=== PATIENT | female | born 1935 | race Caucasian/White ===

== ENCOUNTER 2017-04-13 22:10 | Emergency (ER) | payer MEDICARE, BC ==
--- NOTE | 2017-04-13 22:51 | EDM.PDOC ---
ED HPI GENERAL MEDICAL PROBLEM - General Chief Complaint: General Stated Complaint: FEVER Time Seen by Provider: 04/13/17 22:16 Source of Information: Reports: Patient History Limitations: Reports: No Limitations - History of Present Illness INITIAL COMMENTS - FREE TEXT/NARRATIVE: This is an 81-year-old female. She was sent from the [facility] to the ER because she has been running a low-grade fever of about 100. She also states she's had this dry cough for about a week but she is not producing anything. She denies having a fever or chills she denies any nausea vomiting she denies any ear pain or sore throat. She states she also doesn't know why she is here. The note we got from [facility] states they want to make sure she doesn't have the flu. The patient doesn't know if anybody at the assisted has the flu and I explained to her that's why she is here for us to check this out. Otherwise she is eating well drinking fluids well and has no complaints. The patient denies any body aches. - Related Data Allergies Allergy/AdvReac Type Severity Reaction Status Date / Time No Known Allergies Allergy Verified 04/13/17 22:39 Home Meds: Home Meds Acetaminophen 650 mg PO TID PRN 04/13/17 [History] Allopurinol [Zyloprim] 150 mg PO DAILY 04/13/17 [History] Aspirin [Ecotrin] 81 mg PO DAILY 04/13/17 [History] Cranberry 400 mg PO TID 04/13/17 [History] Fenofibrate Nanocrystallized [Tricor] 48 mg PO DAILY 04/13/17 [History] Furosemide [Lasix] 40 mg PO DAILY 04/13/17 [History] Insulin Glargine,Hum.Rec.Anlog [Lantus Solostar] 18 unit SQ BEDTIME 04/13/17 [ History] Insulin Lispro [HumaLOG] 1 dose SQ TID PRN 04/13/17 [History] Insulin Lispro [HumaLOG] 10 unit SQ TID 04/13/17 [History] Losartan [Cozaar] 50 mg PO DAILY 04/13/17 [History] Metoprolol Succinate [Toprol XL 100mg] 100 mg PO DAILY 04/13/17 [History] amLODIPine [Norvasc] 5 mg PO DAILY 04/13/17 [History] Past Medical History HEENT History: Reports: Other (See Below) Other HEENT History: impacted cerumen Cardiovascular History: Reports: High Cholesterol, Hypertension Genitourinary History: Reports: Other (See Below) Other Genitourinary History: chronic kidney diseaase Psychiatric History: Reports: Dementia Endocrine/Metabolic History: Reports: Diabetes, Type II Social & Family History - Tobacco Use Smoking Status *Q: Never Smoker - Caffeine Use Caffeine Use: Reports: Coffee - Recreational Drug Use Recreational Drug Use: No ED ROS GENERAL - Review of Systems Review Of Systems: See Below Constitutional: Denies: Fever, Chills HEENT: Reports: Eye Discharge Respiratory: Reports: Cough, Other (Nonproductive cough). Denies: Shortness of Breath, Wheezing, Sputum Cardiovascular: Reports: No Symptoms Endocrine: Reports: No Symptoms GI/Abdominal: Denies: Abdominal Pain, Diarrhea, Nausea, Vomiting : Reports: No Symptoms Musculoskeletal: Reports: Other (No body aches) Skin: Reports: No Symptoms Neurological: Reports: No Symptoms Psychiatric: Reports: No Symptoms Hematologic/Lymphatic: Reports: No Symptoms ED EXAM, GENERAL - Physical Exam Exam: See Below Exam Limited By: No Limitations General Appearance: Alert, WD/WN, No Apparent Distress Eye Exam: Bilateral Eye: Normal Inspection (Bilateral eye discharge noted) Ears: Normal External Exam, Normal Canal, Normal TMs Nose: Normal Inspection, Clear Rhinorrhea. No: Nasal Drainage Throat/Mouth: Normal Inspection, Normal Lips, Normal Oropharynx, Normal Voice, No Airway Compromise Head: Normocephalic Neck: Supple Respiratory/Chest: No Respiratory Distress, Lungs Clear, Normal Breath Sounds Cardiovascular: Regular Rate, Rhythm, No Murmur GI/Abdominal: Soft, Non-Tender Back Exam: Full Range of Motion Extremities: Normal Inspection, Normal Range of Motion Neurological: Alert, Oriented Psychiatric: Normal Affect, Normal Mood Skin Exam: Warm, Dry Course - Vital Signs Last Recorded V/S: Last Vital Signs Temp 98.2 F 04/13/17 22:35 Pulse 77 04/13/17 22:35 Resp 18 04/13/17 22:35 BP 169/49 H 04/13/17 22:35 Pulse Ox 95 04/13/17 22:35 - Re-Assessments/Exams Free Text/Narrative Re-Assessment/Exam: 04/14/17 00:21 I spoke to the patient regarding the positive influenza A and influenza B test. I encouraged her to drink lots of fluids and take Tylenol or ibuprofen as needed for the fever if she feels bad. I also encouraged her to continue to wear her mask so she doesn't spread the influenza to her friends at [place]. Departure - Departure Time of Disposition: 00:22 Disposition: Home, Self-Care 01 Condition: Good Clinical Impression: Influenza A, Influenza B - Discharge Information Referrals: Estiven Burnett MD [Primary Care Provider] - Forms: ED Department Discharge Additional Instructions: Please wear the mask when your back at home to prevent spreading the influenza A and B, drink lots of fluids and water to stay well-hydrated, take Tylenol or ibuprofen as needed for the fever if it gets above 101, since she will been sick for about a week I do not believe that the Tamiflu would be helpful at this time, follow-up with your family doctor next week for recheck or return to the ER if your symptoms worsen
== END 2017-04-14 00:30 | disposition home or self-care (01) ==
LOC: JD.ED 22:10
DX: J10.1 Influenza due to other identified influenza virus with other respiratory manifestations (principal); I12.9 Hypertensive chronic kidney disease with stage 1 through stage 4 chronic kidney disease, or unspecified chronic kidney disease; E11.22 Type 2 diabetes mellitus with diabetic chronic kidney disease; N18.9 Chronic kidney disease, unspecified; E78.00 Pure hypercholesterolemia, unspecified; F03.90 Unspecified dementia, unspecified severity, without behavioral disturbance, psychotic disturbance, mood disturbance, and anxiety; Z79.4 Long term (current) use of insulin; Z79.899 Other long term (current) drug therapy; Z79.82 Long term (current) use of aspirin
CPT/HCPCS: 87804; 99282; 99285

== ENCOUNTER 2018-06-24 11:25 | Emergency (ER) | payer MEDICARE, BC ==
--- NOTE | 2018-06-24 13:08 | EDM.PDOC ---
ED HPI GENERAL MEDICAL PROBLEM - General Chief Complaint: Lower Extremity Injury/Pain Stated Complaint: LEG PAIN Time Seen by Provider: 06/24/18 11:34 Source of Information: Reports: Patient, RN Notes Reviewed - History of Present Illness INITIAL COMMENTS - FREE TEXT/NARRATIVE: 82-year-old lady comes in with left lower leg swelling. He did have some tingling of her left upper leg this past morning but that is now gone. No pain. She does have history of "blood clots" "and is on Coumadin. No known injury to the leg. No chest pain or difficulty breathing. Has not been ill in any other way. Left Upper Arm Pain Score (Numeric/FACES): 7 - Related Data Allergies Allergy/AdvReac Type Severity Reaction Status Date / Time No Known Allergies Allergy Verified 06/24/18 11:39 Home Meds: Home Meds Acetaminophen 650 mg PO TID PRN 04/13/17 [History] Allopurinol [Zyloprim] 100 mg PO DAILY 04/13/17 [History] Aspirin [Ecotrin] 81 mg PO DAILY 04/13/17 [History] Cranberry 400 mg PO BID 04/13/17 [History] Furosemide [Lasix] 40 mg PO DAILY 04/13/17 [History] Insulin Glargine,Hum.Rec.Anlog [Lantus Solostar] 18 unit SQ BEDTIME 04/13/17 [ History] Insulin Lispro [HumaLOG] 1 dose SQ TID PRN 04/13/17 [History] Losartan [Cozaar] 50 mg PO DAILY 04/13/17 [History] Metoprolol Succinate [Toprol XL 100mg] 100 mg PO DAILY 04/13/17 [History] amLODIPine [Norvasc] 5 mg PO DAILY 04/13/17 [History] Tamoxifen [Nolvadex] 20 mg PO DAILY 06/24/18 [History] Warfarin [Coumadin] 1.25 mg PO MO 06/24/18 [History] Warfarin [Coumadin] 2.5 mg PO SUTUWETHFRSA 06/24/18 [History] Past Medical History HEENT History: Reports: Other (See Below) Other HEENT History: impacted cerumen Cardiovascular History: Reports: High Cholesterol, Hypertension Genitourinary History: Reports: Other (See Below) Other Genitourinary History: chronic kidney diseaase Psychiatric History: Reports: Dementia Endocrine/Metabolic History: Reports: Diabetes, Type II Social & Family History - Tobacco Use Smoking Status *Q: Never Smoker - Caffeine Use Caffeine Use: Reports: Coffee - Recreational Drug Use Recreational Drug Use: No Review of Systems - Review of Systems Review Of Systems: See Below Constitutional: Denies: Chills, Fever Mouth/Throat: Reports: No Symptoms Respiratory: Denies: Shortness of Breath, Pleuritic Chest Pain, Cough Cardiovascular: Denies: Chest Pain GI/Abdominal: Denies: Abdominal Pain, Nausea, Vomiting Musculoskeletal: Reports: Other (There is been some swelling of the left lower leg, somewhat chronic but may be worse than usual at this time) Skin: Reports: No Symptoms. Denies: Rash, Erythema, Change in Color Neurological: Denies: Dizziness, Difficulty Walking ED EXAM, GENERAL - Physical Exam Exam: See Below General Appearance: Alert, No Apparent Distress Throat/Mouth: Normal Inspection Head: Atraumatic Neck: Supple Respiratory/Chest: No Respiratory Distress, Lungs Clear, Normal Breath Sounds Cardiovascular: Regular Rate, Rhythm Extremities: Other (There is mild swelling of the left lower leg compared to the right, calf and posterior knee as well as upper leg totally nontender). No : Increased Warmth, Redness Neurological: Alert, Oriented, No Motor/Sensory Deficits Skin Exam: Warm, Dry, Normal Color Course - Vital Signs Last Recorded V/S: Last Vital Signs Temp 98.1 F 06/24/18 11:36 Pulse 60 06/24/18 11:36 Resp 16 06/24/18 11:36 BP 174/53 H 06/24/18 11:36 Pulse Ox 100 06/24/18 11:36 - Orders/Labs/Meds Labs: Laboratory Tests 06/24/18 06/24/18 06/24/18 Range/Units 12:15 12:15 12:15 WBC 7.60 (3.98-10.04) K/mm3 RBC 3.38 L (3.98-5.22) M/mm3 Hgb 10.0 L (11.2-15.7) gm/L Hct 31.4 L (34.1-44.9) % MCV 92.9 (79.4-94.8) fl MCH 29.6 (25.6-32.2) pg MCHC 31.8 L (32.2-35.5) g/dl RDW Std Deviation 51.4 H (36.4-46.3) fL Plt Count 214 (182-369) K/mm3 MPV 9.8 (9.4-12.3) fl Neut % (Auto) 73.0 H (34.0-71.1) % Lymph % (Auto) 15.3 L (19.3-51.7) % [place] % (Auto) 7.2 (4.7-12.5) % Eos % (Auto) 3.6 (0.7-5.8) Baso % (Auto) 0.8 (0.1-1.2) % Neut # (Auto) 5.55 (1.56-6.13) K/mm3 Lymph # (Auto) 1.16 L (1.18-3.74) K/mm3 [place] # (Auto) 0.55 H (0.24-0.36) K/mm3 Eos # (Auto) 0.27 (0.04-0.36) K/mm3 Baso # (Auto) 0.06 (0.01-0.08) K/mm3 PT 21.9 H (9.5-12.1) SECONDS INR 2.04 Sodium 141 (136-145) mEq/L Potassium 5.6 H (3.5-5.1) mEq/L Chloride 108 H (98-107) mEq/L Carbon Dioxide 19 L (21-32) mEq/L Anion Gap 19.6 H (5-15) BUN 80 H (7-18) mg/dL Creatinine 3.8 H (0.55-1.02) mg/dL Est Cr Clr Drug Dosing 8.32 mL/min Estimated GFR (MDRD) 11 (>60) mL/min BUN/Creatinine Ratio 21.1 H (14-18) Glucose 137 H (83-115) mg/dL Calcium 8.3 L (8.5-10.1) mg/dL Total Bilirubin 0.3 (0.2-1.0) mg/dL AST 18 (15-37) U/L ALT 16 (14-59) U/L Alkaline Phosphatase 59 (46-116) U/L Total Protein 7.4 (6.4-8.2) g/dl Albumin 2.8 L (3.4-5.0) g/dl Globulin 4.6 gm/dL Albumin/Globulin Ratio 0.6 L (1-2) - Re-Assessments/Exams Free Text/Narrative Re-Assessment/Exam: 06/26/18 19:35 Pro time INR was therapeutic at 2.04. Vitals completely normal, not short of breath. Therefore it seems reasonable to increase her Coumadin dosage mildly, patient and her daughter are comfortable with that plan discharge instructions as documented Departure - Departure Time of Disposition: 13:03 Disposition: DC/Tfer to [facility] 61 Condition: Fair Clinical Impression: Left leg swelling - Discharge Information Referrals: Estiven Burnett MD [Primary Care Provider] - Forms: ED Department Discharge Additional Instructions: Keep legs elevated when not walking, increase coumadin or warfarin to 5 mg PO Sunday and Sunday, continue at 2.5 mg all other days. Pt INR was low therapeutic today at 2.05. Continue other medications as prescribed. Measure left calf daily and keep a record for the next 10 days. Follow-up clinic or return to ED as needed if symptoms worsening in any way, especially for any chest pain or difficulty breathing, or if leg becomes warm, erythematous or more painful.
== END 2018-06-24 13:24 ==
LOC: JD.ED 11:25
DX: R22.42 Localized swelling, mass and lump, left lower limb (principal); Z79.899 Other long term (current) drug therapy; Z79.82 Long term (current) use of aspirin
CPT/HCPCS: 36415; 80053; 85025; 85610; 99282; 99283

== ENCOUNTER 2018-12-20 08:44 | Inpatient (IN) | payer MEDICARE, BC ==
[2018-12-20] MEDS ORDERED: Ondansetron 4 MG/2 ML SDV IVPUSH ONE (10:16)
[2018-12-20] MEDS ORDERED: Sodium Chloride 0.9% 1,000 ML IV SCH ×3 (10:30→18:45)
--- NOTE | 2018-12-20 11:03 | EDM.PDOC ---
ED HPI GENERAL MEDICAL PROBLEM - General Chief Complaint: Gastrointestinal Problem Stated Complaint: [facility] Time Seen by Provider: 12/20/18 09:54 Source of Information: Reports: Patient, Family, RN Notes Reviewed History Limitations: Reports: No Limitations - History of Present Illness INITIAL COMMENTS - FREE TEXT/NARRATIVE: Patient is an 83-year-old female who presents to the ED via [place] [facility] for the evaluation of nausea and vomiting. The patient's son present in the room states that his mother has been not feeling well since Sunday night after supper. He states that he visited her last night at the custodial, after supper time around 7 PM and he states that she vomited 4 or 5 times since then. The patient complaints of no appetite, with multiple episodes of vomiting and nausea present. The patient's blood sugar this morning at 7:45 AM was 53, they try to give her some apple juice but she ended up throwing this up. They then tried 1 mg glucagon, this is when the [place] [facility] was summoned. At time of ambulance arrival the patient's blood sugar reading was 86. The patient has been alert and orientated, she denies any sort of abdominal pain. The patient notes a history of diabetes and states she takes 8 units of Lantus at bedtime for insulin and this is all she takes. She further denies any chest pain, shortness of breath, dysuria, or any other like sick contacts. - Related Data Allergies Allergy/AdvReac Type Severity Reaction Status Date / Time No Known Allergies Allergy Verified 12/20/18 08:58 Home Meds: Home Meds Acetaminophen 650 mg PO TID PRN 04/13/17 [History] Allopurinol [Zyloprim] 100 mg PO DAILY 04/13/17 [History] Aspirin [Ecotrin EC] 81 mg PO DAILY 04/13/17 [History] Cranberry 400 mg PO BID 04/13/17 [History] Furosemide [Lasix] 40 mg PO DAILY 04/13/17 [History] Insulin Glargine,Hum.Rec.Anlog [Lantus Solostar] 18 unit SQ BEDTIME 04/13/17 [ History] Insulin Lispro [HumaLOG] 1 dose SQ TID PRN 04/13/17 [History] Losartan [Cozaar] 50 mg PO DAILY 04/13/17 [History] Metoprolol Succinate [Toprol XL 100mg] 100 mg PO DAILY 04/13/17 [History] amLODIPine [Norvasc] 5 mg PO DAILY 04/13/17 [History] Tamoxifen [Nolvadex] 20 mg PO DAILY 06/24/18 [History] Warfarin [Coumadin] 1.25 mg PO MO 06/24/18 [History] Warfarin [Coumadin] 2.5 mg PO SUTUWETHFRSA 06/24/18 [History] Past Medical History HEENT History: Reports: Other (See Below) Other HEENT History: impacted cerumen Cardiovascular History: Reports: High Cholesterol, Hypertension, Other (See Below) Other Cardiovascular History: DVT Genitourinary History: Reports: Renal Disease, Other (See Below) Other Genitourinary History: chronic kidney diseaase [employer] History: Reports: Psychiatric History: Reports: Dementia Endocrine/Metabolic History: Reports: Diabetes, Type II Oncologic (Cancer) History: Reports: Breast - Infectious Disease History Infectious Disease History: Reports: Measles, Mumps - Past Surgical History Female Surgical History: Reports: Other (See Below) Other Female Surgeries/Procedures: lumpectomy--L) breast. Social & Family History - Tobacco Use Smoking Status *Q: Never Smoker Second Hand Smoke Exposure: No - Caffeine Use Caffeine Use: Reports: Coffee - Recreational Drug Use Recreational Drug Use: No ED ROS GENERAL - Review of Systems Review Of Systems: See Below Constitutional: Denies: Fever, Chills HEENT: Reports: No Symptoms Respiratory: Denies: Shortness of Breath Cardiovascular: Denies: Chest Pain GI/Abdominal: Reports: Nausea, Vomiting. Denies: Abdominal Pain, Constipation, Diarrhea : Denies: Dysuria Musculoskeletal: Reports: No Symptoms Skin: Reports: No Symptoms Neurological: Reports: No Symptoms Psychiatric: Reports: No Symptoms Hematologic/Lymphatic: Reports: No Symptoms ED EXAM, GI/ABD - Physical Exam Exam: See Below Exam Limited By: No Limitations General Appearance: Alert, WD/WN, No Apparent Distress Eyes: Bilateral: Normal Appearance Throat/Mouth: Normal Inspection, Normal Lips, Normal Teeth, Normal Gums, Normal Oropharynx, Normal Voice, No Airway Compromise Respiratory/Chest: No Respiratory Distress, Lungs Clear, Normal Breath Sounds, No Accessory Muscle Use, Chest Non-Tender Cardiovascular: Normal Peripheral Pulses, Regular Rate, Rhythm, No Murmur GI/Abdominal Exam: Normal Bowel Sounds, Soft, Non-Tender, No Distention, No Mass Back Exam: Normal Inspection Extremities: Normal Inspection, Normal Capillary Refill Neurological: Alert, Oriented, Normal Cognition, No Motor/Sensory Deficits Psychiatric: Normal Affect, Normal Mood Skin Exam: Warm, Dry, Intact, Normal Color, No Rash Course - Vital Signs Last Recorded V/S: Last Vital Signs Temp 97.4 F 12/20/18 08:52 Pulse 79 12/20/18 08:52 Resp 18 12/20/18 08:52 BP 178/50 H 12/20/18 08:52 Pulse Ox 97 12/20/18 08:52 - Orders/Labs/Meds Orders: Active Orders 24 hr Category Date Time Status Sodium Chloride 0.9% [Normal Saline] 1,000 ml Med 12/20/18 10:30 Active IV ASDIRECTED Sodium Chloride 0.9% [Normal Saline] 1,000 ml Med 12/20/18 12:44 Active IV ONETIME cefTRIAXone [Rocephin] 1 gm Med 12/20/18 13:30 Active Sodium Chloride 0.9% [Normal Saline] 100 ml IV Q24H Medication Orders Sodium Chloride (Normal Saline) 1,000 mls @ 999 mls/hr IV ASDIRECTED KAITLYN Last Admin: 12/20/18 10:29 Dose: 999 mls/hr Sodium Chloride (Normal Saline) 1,000 mls @ 999 mls/hr IV ONETIME ONE Stop: 12/20/18 13:44 Last Admin: 12/20/18 13:33 Dose: 999 mls/hr Ceftriaxone Sodium 1 gm/ (Sodium Chloride) 100 mls @ 200 mls/hr IV Q24H [facility] Last Admin: 12/20/18 13:33 Dose: 200 mls/hr Labs: Laboratory Tests 12/20/18 12/20/18 12/20/18 Range/Units 08:49 09:59 10:00 WBC 9.62 (3.98-10.04) K/mm3 RBC 3.73 L (3.98-5.22) M/mm3 Hgb 11.4 (11.2-15.7) gm/dl Hct 35.8 (34.1-44.9) % MCV 96.0 H D (79.4-94.8) fl MCH 30.6 (25.6-32.2) pg MCHC 31.8 L (32.2-35.5) g/dl RDW Std Deviation 48.9 H (36.4-46.3) fL Plt Count 167 L (182-369) K/mm3 MPV 10.1 (9.4-12.3) fl Neutrophils % (Manual) 83 H (40-60) % Band Neutrophils % 0 (0-10) % Lymphocytes % (Manual) 10 L (20-40) % Atypical Lymphs % 0 % Monocytes % (Manual) 7 (2-10) % Eosinophils % (Manual) 0 L (0.7-5.8) % Basophils % (Manual) 0 L (0.1-1.2) Platelet Estimate Adequate Anisocytosis 1+ slight RBC Morph Comment Abnormal Sodium (136-145) mEq/L Potassium (3.5-5.1) mEq/L Chloride (98-107) mEq/L Carbon Dioxide (21-32) mEq/L Anion Gap (5-15) BUN (7-18) mg/dL Creatinine (0.55-1.02) mg/dL Est Cr Clr Drug Dosing mL/min Estimated GFR (MDRD) (>60) mL/min BUN/Creatinine Ratio (14-18) Glucose (83-115) mg/dL POC Glucose 87 103 (83-110) mg/dL Calcium (8.5-10.1) mg/dL Total Bilirubin (0.2-1.0) mg/dL AST (15-37) U/L ALT (14-59) U/L Alkaline Phosphatase (46-116) U/L Total Protein (6.4-8.2) g/dl Albumin (3.4-5.0) g/dl Globulin gm/dL Albumin/Globulin Ratio (1-2) Urine Color (Yellow) Urine Appearance (Clear) Urine pH (5.0-8.0) Ur Specific [place] (1.005-1.030) Urine Protein (Negative) Urine Glucose (UA) (Negative) Urine Ketones (Negative) Urine Occult Blood (Negative) Urine Nitrite (Negative) Urine Bilirubin (Negative) Urine Urobilinogen (0.2-1.0) Ur Leukocyte Esterase (Negative) Urine RBC (0-5) /hpf Urine WBC (0-5) /hpf Ur Epithelial Cells (0-5) /hpf Urine Bacteria (FEW) /hpf Urine Mucus (FEW) /hpf 12/20/18 12/20/18 Range/Units 10:00 12:30 WBC (3.98-10.04) K/mm3 RBC (3.98-5.22) M/mm3 Hgb (11.2-15.7) gm/dl Hct (34.1-44.9) % MCV (79.4-94.8) fl MCH (25.6-32.2) pg MCHC (32.2-35.5) g/dl RDW Std Deviation (36.4-46.3) fL Plt Count (182-369) K/mm3 MPV (9.4-12.3) fl Neutrophils % (Manual) (40-60) % Band Neutrophils % (0-10) % Lymphocytes % (Manual) (20-40) % Atypical Lymphs % % Monocytes % (Manual) (2-10) % Eosinophils % (Manual) (0.7-5.8) % Basophils % (Manual) (0.1-1.2) Platelet Estimate Anisocytosis RBC Morph Comment Sodium 144 (136-145) mEq/L Potassium 4.8 (3.5-5.1) mEq/L Chloride 111 H (98-107) mEq/L Carbon Dioxide 19 L (21-32) mEq/L Anion Gap 18.8 H (5-15) BUN 71 H (7-18) mg/dL Creatinine 3.8 H (0.55-1.02) mg/dL Est Cr Clr Drug Dosing 8.17 mL/min Estimated GFR (MDRD) 11 (>60) mL/min BUN/Creatinine Ratio 18.7 H (14-18) Glucose 114 (83-115) mg/dL POC Glucose (83-110) mg/dL Calcium 8.6 (8.5-10.1) mg/dL Total Bilirubin 0.3 (0.2-1.0) mg/dL AST 24 (15-37) U/L ALT 17 (14-59) U/L Alkaline Phosphatase 47 (46-116) U/L Total Protein 7.4 (6.4-8.2) g/dl Albumin 3.0 L (3.4-5.0) g/dl Globulin 4.4 gm/dL Albumin/Globulin Ratio 0.7 L (1-2) Urine Color Yellow (Yellow) Urine Appearance Cloudy H (Clear) Urine pH 5.0 (5.0-8.0) Ur Specific [place] 1.020 (1.005-1.030) Urine Protein 3+ H (Negative) Urine Glucose (UA) Negative (Negative) Urine Ketones 1+ H (Negative) Urine Occult Blood 2+ H (Negative) Urine Nitrite Negative (Negative) Urine Bilirubin Negative (Negative) Urine Urobilinogen 0.2 (0.2-1.0) Ur Leukocyte Esterase 2+ H (Negative) Urine RBC 5-10 H (0-5) /hpf Urine WBC >100 H (0-5) /hpf Ur Epithelial Cells Not seen (0-5) /hpf Urine Bacteria Many H (FEW) /hpf Urine Mucus Few (FEW) /hpf Meds: Medications Generic Name Dose Route Start Last Admin Trade Name Freq PRN Reason Stop Dose Admin Sodium Chloride 1,000 mls @ 999 mls/hr 12/20/18 10:30 12/20/18 10:29 Normal Saline IV 999 mls/hr ASDIRECTED KAITLYN Administration Sodium Chloride 1,000 mls @ 999 mls/hr 12/20/18 12:44 12/20/18 13:33 Normal Saline IV 12/20/18 13:44 999 mls/hr ONETIME ONE Administration Ceftriaxone Sodium 1 gm/ 100 mls @ 200 mls/hr 12/20/18 13:30 12/20/18 13:33 Sodium Chloride IV 200 mls/hr Q24H KAITLYN Administration Discontinued Medications Generic Name Dose Route Start Last Admin Trade Name Freq PRN Reason Stop Dose Admin Ondansetron HCl 4 mg 12/20/18 10:16 12/20/18 10:27 Zofran IVPUSH 12/20/18 10:17 4 mg ONETIME ONE Administration - Re-Assessments/Exams Free Text/Narrative Re-Assessment/Exam: 12/20/18 10:15 Patient presents to the ED for evaluation of nausea and vomiting since Sunday. I did order CBC, CMP, quick catheter urinalysis, some IV fluids, 4 mg Zofran, and a flat and upright abdomen x-ray. 12/20/18 12:33 Patient's x-ray is done, and demonstrates normal bowel gas pattern, there is no sign of obstruction or no other acute abnormality appreciated on the flat and upright abdomen. Since initial labs are done and demonstrate mild dehydration, her anion gap is 18, her creatinine is 3.8, but upon review of her old records this is not changed from her previous lab evaluation. 12/20/18 13:31 Patient's urinalysis is done, and demonstrates that she doesn't fact have a UTI , with over 100 white blood cells noted, this was a catheterized specimen. Will start 1 g Rocephin in the ER, the patient will likely need to be admitted to the hospital for IV fluids and further antibiotics, until she can start tolerating food or fluid by mouth. Dr. House our hospitalist was called, and except the patient for hospitalization at this time. The patient's paperwork present at bedside states that she is a DNR. Departure - Departure Time of Disposition: 13:33 Disposition: Admitted As Inpatient 64 Condition: Fair Clinical Impression: UTI, Urinary tract infectious disease - Discharge Information *PRESCRIPTION DRUG MONITORING PROGRAM REVIEWED*: No *COPY OF PRESCRIPTION DRUG MONITORING REPORT IN PATIENT JUSTO: No Referrals: Estiven Burnett MD [Primary Care Provider] - Forms: ED Department Discharge - My Orders Last 24 Hours: My Active Orders 12/20/18 10:30 Sodium Chloride 0.9% [Normal Saline] 1,000 ml IV ASDIRECTED 12/20/18 12:44 Sodium Chloride 0.9% [Normal Saline] 1,000 ml IV ONETIME 12/20/18 13:30 cefTRIAXone [Rocephin] 1 gm Sodium Chloride 0.9% [Normal Saline] 100 ml IV Q24H - Assessment/Plan Last 24 Hours: My Active Orders 12/20/18 10:30 Sodium Chloride 0.9% [Normal Saline] 1,000 ml IV ASDIRECTED 12/20/18 12:44 Sodium Chloride 0.9% [Normal Saline] 1,000 ml IV ONETIME 12/20/18 13:30 cefTRIAXone [Rocephin] 1 gm Sodium Chloride 0.9% [Normal Saline] 100 ml IV Q24H
--- NOTE | 2018-12-20 12:24 | CR ---
Abdomen: Supine and upright views of the abdomen were obtained. Comparison: No previous abdominal x-ray. Surgical clips are seen from prior cholecystectomy. Vascular calcification is noted. Bony structures are slightly osteopenic but intact. No free air is seen. Bowel gas pattern is normal. Impression: 1. Findings as noted above. Nothing acute is appreciated. Diagnostic code #1
[2018-12-20] MEDS ORDERED: Sodium Chloride 0.9% 1,000 ML IV ONE (12:44)
[2018-12-20] MEDS ORDERED: cefTRIAXone 1 GM in Sodium Chloride 0.9% 100 ML IV SCH (13:30)
[2018-12-20] MEDS: 50% Dextrose in Water 50 ML Syringe IVPUSH PRN ×2 (16:20→21:55)
[2018-12-20] MEDS ORDERED: Acetaminophen 325 MG Tab PO PRN (17:06)
[2018-12-20] MEDS ORDERED: Ondansetron 4 MG Tab.DIS PO PRN (17:06)
[2018-12-20] MEDS ORDERED: Warfarin 2.5 MG Tab PO SCH (17:15)
--- NOTE | 2018-12-20 17:17 | PCM.HP.2 ---
H&P History of Present Illness - General Date of Service: 12/20/18 Admit Problem/Dx: Admission Diagnosis/Problem Admission Diagnosis/Problem UTI, Urinary tract infectious disease - History of Present Illness Initial Comments - Free Text/Narative: 83-year-old female with history of diabetes, DVT on Coumadin, hypertension, and end-stage renal disease not on dialysis presented to the emergency room after 2 days of vomiting. Patient does have mild to moderate dementia so most of the history was obtained through the emergency room providers notes. Patient's son was available to her. Apparently she has not been feeling well since Sunday night after supper and last night when he arrived after supper around 7 PM she had vomited 4 or 5 times. This morning she apparently also vomited some apple juice when she had a blood sugar of 53. She was then given 1 mg of glucagon and EMS was called. Her blood sugar was 86 when EMS arrived. She has been alert and oriented and she denies any abdominal pain. Abdominal x-ray done in the emergency room was negative. She takes 8 units of Lantus at bedtime. In the emergency room she was given 1 L of normal saline and Zofran. She was continued on normal saline 125 mL per hour. Patient was given Rocephin 1 g IV because of a positive UA with micro-. Patient denies any urinary symptoms. White count is 9.62, hemoglobin of 11.4, platelets 167, sodium 144, potassium of 4.8, chloride 111, carbon dioxide 19, anion gap 18.8, BUN 71, creatinine of 3.8 glucose 114. UA was significant for greater than 100 WBCs per high-powered field. Many bacteria. When patient arrived at the floor her finger stick blood sugar was 38. She was given 1 amp of D50 and her blood sugar did go up to 150. - Related Data Allergies/Adverse Reactions: Allergies Allergy/AdvReac Type Severity Reaction Status Date / Time No Known Allergies Allergy Verified 12/20/18 08:58 Home Medications: Home Meds Acetaminophen 650 mg PO TID PRN 04/13/17 [History] Allopurinol [Zyloprim] 100 mg PO DAILY 04/13/17 [History] Aspirin [Ecotrin EC] 81 mg PO DAILY 04/13/17 [History] Cranberry 400 mg PO BID 04/13/17 [History] Furosemide [Lasix] 40 mg PO DAILY 04/13/17 [History] Insulin Glargine,Hum.Rec.Anlog [Lantus Solostar] 8 unit SQ BEDTIME 04/13/17 [ History] Losartan [Cozaar] 50 mg PO DAILY 04/13/17 [History] Metoprolol Succinate [Toprol XL 100mg] 100 mg PO DAILY 04/13/17 [History] amLODIPine [Norvasc] 5 mg PO DAILY 04/13/17 [History] Tamoxifen [Nolvadex] 20 mg PO DAILY 06/24/18 [History] Warfarin [Coumadin] 2.5 mg PO SUTUTHSA 06/24/18 [History] Warfarin [Coumadin] 7.5 mg PO MOWEFR 06/24/18 [History] Past Medical History HEENT History: Reports: Other (See Below) Other HEENT History: impacted cerumen Cardiovascular History: Reports: High Cholesterol, Hypertension, Other (See Below) Other Cardiovascular History: DVT, anticoagulant use, chronic embolism and thrombosis of unspecified deep veins of left lower extremity, localized swelling mass and lump trunk, chronic fatique, hyperlipidemia, hypertension Genitourinary History: Reports: Renal Disease, Other (See Below) Other Genitourinary History: chronic kidney disease stage 5, proteinuria, monoclonal gammopathy-9Paraproteinemia) [employer] 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: Musculoskeletal History: Reports: Gout Psychiatric History: Reports: Dementia Other Psychiatric History: unspecified dementia without behavioral disturbance Endocrine/Metabolic History: Reports: Diabetes, Type II Other Endocrine/Metabolic History: [facility] insulin use Oncologic (Cancer) History: Reports: Breast Other Oncologic History: 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 Social & Family History - Family History Family Medical History: Noncontributory - Tobacco Use Smoking Status *Q: Never Smoker Second Hand Smoke Exposure: No - Caffeine Use Caffeine Use: Reports: Coffee - Recreational Drug Use Recreational Drug Use: No H&P Review of Systems - Review of Systems: Review Of Systems: ROS reveals no pertinent complaints other than HPI. Exam - Exam Exam: See Below - Vital Signs Vital Signs: Last Vital Signs Temp 97.5 F 12/20/18 14:50 Pulse 72 12/20/18 14:50 Resp 12 12/20/18 14:50 BP 156/69 H 12/20/18 14:50 Pulse Ox 100 12/20/18 14:50 Weight: 132 lb 1.6 oz - Exam Quality Assessment: No: Supplemental Oxygen General: Alert, Oriented, 4 HEENT: Conjunctiva Clear, Mucosa Moist & [place] Neck: Supple, Trachea Midline, 2 Lungs: Clear to Auscultation, Normal Respiratory Effort Cardiovascular: Regular Rate, Regular Rhythm GI/Abdominal Exam: Soft, Non-Tender, No Organomegaly, No Distention, No Abnormal Bruit, No Mass, Pelvis Stable. No: Normal Bowel Sounds (decreased bowel sounds) Extremities: Normal Inspection, Normal Range of Motion, Non-Tender Skin: Warm, Dry, Intact Neuro Extensive - Mental Status: Alert Psychiatric: Alert, Normal Affect, Normal Mood - Patient Data Lab Results Last 24 hrs: Laboratory Results - last 24 hr 12/20/18 12/20/18 12/20/18 Range/Units 08:49 09:59 10:00 WBC 9.62 (3.98-10.04) K/mm3 RBC 3.73 L (3.98-5.22) M/mm3 Hgb 11.4 (11.2-15.7) gm/dl Hct 35.8 (34.1-44.9) % MCV 96.0 H D (79.4-94.8) fl MCH 30.6 (25.6-32.2) pg MCHC 31.8 L (32.2-35.5) g/dl RDW Std Deviation 48.9 H (36.4-46.3) fL Plt Count 167 L (182-369) K/mm3 MPV 10.1 (9.4-12.3) fl Neutrophils % (Manual) 83 H (40-60) % Band Neutrophils % 0 (0-10) % Lymphocytes % (Manual) 10 L (20-40) % Atypical Lymphs % 0 % Monocytes % (Manual) 7 (2-10) % Eosinophils % (Manual) 0 L (0.7-5.8) % Basophils % (Manual) 0 L (0.1-1.2) Platelet Estimate Adequate Anisocytosis 1+ slight RBC Morph Comment Abnormal Sodium (136-145) mEq/L Potassium (3.5-5.1) mEq/L Chloride (98-107) mEq/L Carbon Dioxide (21-32) mEq/L Anion Gap (5-15) BUN (7-18) mg/dL Creatinine (0.55-1.02) mg/dL Est Cr Clr Drug Dosing mL/min Estimated GFR (MDRD) (>60) mL/min BUN/Creatinine Ratio (14-18) Glucose (83-115) mg/dL POC Glucose 87 103 (83-110) mg/dL Calcium (8.5-10.1) mg/dL Total Bilirubin (0.2-1.0) mg/dL AST (15-37) U/L ALT (14-59) U/L Alkaline Phosphatase (46-116) U/L Total Protein (6.4-8.2) g/dl Albumin (3.4-5.0) g/dl Globulin gm/dL Albumin/Globulin Ratio (1-2) Urine Color (Yellow) Urine Appearance (Clear) Urine pH (5.0-8.0) Ur Specific [place] (1.005-1.030) Urine Protein (Negative) Urine Glucose (UA) (Negative) Urine Ketones (Negative) Urine Occult Blood (Negative) Urine Nitrite (Negative) Urine Bilirubin (Negative) Urine Urobilinogen (0.2-1.0) Ur Leukocyte Esterase (Negative) Urine RBC (0-5) /hpf Urine WBC (0-5) /hpf Ur Epithelial Cells (0-5) /hpf Urine Bacteria (FEW) /hpf Urine Mucus (FEW) /hpf 12/20/18 12/20/18 12/20/18 Range/Units 10:00 12:30 16:10 WBC (3.98-10.04) K/mm3 RBC (3.98-5.22) M/mm3 Hgb (11.2-15.7) gm/dl Hct (34.1-44.9) % MCV (79.4-94.8) fl MCH (25.6-32.2) pg MCHC (32.2-35.5) g/dl RDW Std Deviation (36.4-46.3) fL Plt Count (182-369) K/mm3 MPV (9.4-12.3) fl Neutrophils % (Manual) (40-60) % Band Neutrophils % (0-10) % Lymphocytes % (Manual) (20-40) % Atypical Lymphs % % Monocytes % (Manual) (2-10) % Eosinophils % (Manual) (0.7-5.8) % Basophils % (Manual) (0.1-1.2) Platelet Estimate Anisocytosis RBC Morph Comment Sodium 144 (136-145) mEq/L Potassium 4.8 (3.5-5.1) mEq/L Chloride 111 H (98-107) mEq/L Carbon Dioxide 19 L (21-32) mEq/L Anion Gap 18.8 H (5-15) BUN 71 H (7-18) mg/dL Creatinine 3.8 H (0.55-1.02) mg/dL Est Cr Clr Drug Dosing 8.17 mL/min Estimated GFR (MDRD) 11 (>60) mL/min BUN/Creatinine Ratio 18.7 H (14-18) Glucose 114 (83-115) mg/dL POC Glucose 38 L (83-110) mg/dL Calcium 8.6 (8.5-10.1) mg/dL Total Bilirubin 0.3 (0.2-1.0) mg/dL AST 24 (15-37) U/L ALT 17 (14-59) U/L Alkaline Phosphatase 47 (46-116) U/L Total Protein 7.4 (6.4-8.2) g/dl Albumin 3.0 L (3.4-5.0) g/dl Globulin 4.4 gm/dL Albumin/Globulin Ratio 0.7 L (1-2) Urine Color Yellow (Yellow) Urine Appearance Cloudy H (Clear) Urine pH 5.0 (5.0-8.0) Ur Specific [place] 1.020 (1.005-1.030) Urine Protein 3+ H (Negative) Urine Glucose (UA) Negative (Negative) Urine Ketones 1+ H (Negative) Urine Occult Blood 2+ H (Negative) Urine Nitrite Negative (Negative) Urine Bilirubin Negative (Negative) Urine Urobilinogen 0.2 (0.2-1.0) Ur Leukocyte Esterase 2+ H (Negative) Urine RBC 5-10 H (0-5) /hpf Urine WBC >100 H (0-5) /hpf Ur Epithelial Cells Not seen (0-5) /hpf Urine Bacteria Many H (FEW) /hpf Urine Mucus Few (FEW) /hpf Result Diagrams: 12/20/18 10:00 12/20/18 10:00 Problem List Initiated/Reviewed/Updated: Yes Orders Last 24hrs: Active Orders 24 hr Category Date Time Status Admission Status [Patient Status] [ADT] Routine ADT 12/20/18 13:44 Active Antiembolic Devices [RC] PER UNIT ROUTINE Care 12/20/18 17:08 Ordered Blood Glucose Check, Bedside [RC] WITHMEALSANDBED Care 12/20/18 17:06 Ordered Communication Order [RC] ASDIRECTED Care 12/20/18 14:50 Active Oxygen Therapy [RC] PRN Care 12/20/18 17:06 Ordered Up ad Sumaya [RC] ASDIRECTED Care 12/20/18 17:06 Ordered VTE/DVT Education [RC] PER UNIT ROUTINE Care 12/20/18 17:06 Ordered Vital Signs [RC] Q4H Care 12/20/18 17:06 Ordered Consult to Roving Department End Finder [CONS] Routine Cons 12/20/18 17:08 Ordered OT Evaluation and Treatment [CONS] Routine Cons 12/20/18 17:08 Ordered PT Evaluation and Treatment [CONS] Routine Cons 12/20/18 17:08 Ordered Full Liquid Diet [DIET] Diet 12/20/18 Dinner Ordered CBC WITH AUTO DIFF [HEME] AM Lab 12/21/18 05:11 Ordered CBC WITH AUTO DIFF [HEME] AM Lab 12/22/18 05:11 Ordered CBC WITH AUTO DIFF [HEME] AM Lab 12/23/18 05:11 Ordered CBC WITH AUTO DIFF [HEME] AM Lab 12/24/18 05:11 Ordered CBC WITH AUTO DIFF [HEME] AM Lab 12/25/18 05:11 Ordered COMPREHENSIVE METABOLIC PN,CMP [CHEM] AM Lab 12/21/18 05:11 Ordered COMPREHENSIVE METABOLIC PN,CMP [CHEM] AM Lab 12/22/18 05:11 Ordered COMPREHENSIVE METABOLIC PN,CMP [CHEM] AM Lab 12/23/18 05:11 Ordered COMPREHENSIVE METABOLIC PN,CMP [CHEM] AM Lab 12/24/18 05:11 Ordered COMPREHENSIVE METABOLIC PN,CMP [CHEM] AM Lab 12/25/18 05:11 Ordered CULTURE URINE [RM] Routine Lab 12/20/18 17:16 Ordered GLYCOSYLATED HEMOGLOBIN,HGBA1C [CHEM] AM Lab 12/21/18 05:11 Ordered INR,PT,PROTHROMBIN TIME [COAG] AM Lab 12/21/18 05:11 Ordered INR,PT,PROTHROMBIN TIME [COAG] AM Lab 12/22/18 05:11 Ordered INR,PT,PROTHROMBIN TIME [COAG] AM Lab 12/23/18 05:11 Ordered INR,PT,PROTHROMBIN TIME [COAG] AM Lab 12/24/18 05:11 Ordered INR,PT,PROTHROMBIN TIME [COAG] AM Lab 12/25/18 05:11 Ordered MAGNESIUM [CHEM] AM Lab 12/21/18 05:11 Ordered MAGNESIUM [CHEM] AM Lab 12/22/18 05:11 Ordered MAGNESIUM [CHEM] AM Lab 12/23/18 05:11 Ordered MAGNESIUM [CHEM] AM Lab 12/24/18 05:11 Ordered MAGNESIUM [CHEM] AM Lab 12/25/18 05:11 Ordered METH-RESIST S.AUR,MRSA BY PCR [MOLEC] Routine Lab 12/20/18 15:21 Ordered Acetaminophen [Tylenol] Med 12/20/18 17:06 Ordered 650 mg PO Q4H PRN Allopurinol [Zyloprim] Med 12/21/18 09:00 Ordered 100 mg PO DAILY Aspirin [Halfprin] Med 12/21/18 09:00 Ordered 81 mg PO DAILY Dextrose 50% in Water Med 12/20/18 16:13 Active 50 ml IVPUSH ASDIRECTED PRN Furosemide [Lasix] Med 12/21/18 09:00 Ordered 40 mg PO DAILY Insulin Lispro [HumaLOG] Med 12/20/18 22:00 Ordered See Protocol SUBCUT QIDACANDBED Metoprolol Succinate Med 12/21/18 09:00 Ordered 100 mg PO DAILY Ondansetron [Zofran ODT] Med 12/20/18 17:06 Ordered 4 mg PO Q4H PRN Ondansetron [Zofran] Med 12/20/18 17:06 Ordered 4 mg IV Q4H PRN Pharmacy to Dose - Warfarin Med 12/20/18 17:15 Ordered 1 dose .XX ASDIRECTED Tamoxifen [Nolvadex] Med 12/21/18 09:00 Ordered 20 mg PO DAILY Warfarin [Coumadin] Med 12/21/18 17:11 Ordered 2.5 mg PO SUTUTHSA Warfarin [Coumadin] Med 12/20/18 17:15 Ordered 7.5 mg PO MOWEFR amLODIPine Med 12/21/18 09:00 Ordered 5 mg PO DAILY cefTRIAXone [Rocephin] 1 gm Med 12/21/18 13:00 Ordered Sodium Chloride 0.9% [Normal Saline] 100 ml IV Q24H Antiembolic Hose [OM.PC] Per Unit Routine Oth 12/20/18 17:06 Ordered Resuscitation Status Routine Resus Stat 12/20/18 17:06 Ordered Medication Orders Acetaminophen (Tylenol) 650 mg PO Q4H PRN PRN Reason: Pain (Mild 1-3)/fever Allopurinol (Zyloprim) 100 mg PO DAILY [facility] Aspirin (Halfprin) 81 mg PO DAILY [facility] Dextrose/Water (Dextrose 50% In Water) 50 ml IVPUSH ASDIRECTED PRN PRN Reason: Hypoglycemia Last Admin: 12/20/18 16:20 Dose: 50 ml Furosemide (Lasix) 40 mg PO DAILY [facility] Ceftriaxone Sodium 1 gm/ (Sodium Chloride) 100 mls @ 200 mls/hr IV Q24H [facility] Insulin Human Lispro (Humalog) 0 unit SUBCUT QIDACANDBED [facility]; Protocol Non-Formulary Medication (Amlodipine) 5 mg PO DAILY [facility] Non-Formulary Medication (Metoprolol Succinate) 100 mg PO DAILY [facility] Ondansetron HCl (Zofran Odt) 4 mg PO Q4H PRN PRN Reason: nausea, able to take PO Ondansetron HCl (Zofran) 4 mg IV Q4H PRN PRN Reason: Nausea/Vomiting Tamoxifen Citrate (Nolvadex) 20 mg PO DAILY [facility] Warfarin Sodium (Pharmacy To Dose - Warfarin) 1 dose .XX ASDIRECTED [facility] Warfarin Sodium (Coumadin) 2.5 mg PO SUTUTHSA [facility] Warfarin Sodium (Coumadin) 7.5 mg PO MOWEFR [facility] Assessment/Plan Comment:: Assessment * 83-year-old female with history of insulin-dependent diabetes, stage V renal failure, 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 Patient may not need to be on insulin with such severe renal disease. * consult PT, OT, dietary * Zofran for nausea * Rocephin 1 g every 24 hours * Urine culture * Pharmacy to dose Coumadin, INR and daily INR * CBC, CMP, and magnesium in the morning and daily * VTE prophylaxis with Coumadin * CODE STATUS: DNR/DNI * Length of stay 2-3 days. - Mortality Measure Prognosis:: Poor
[2018-12-20] MEDS: Ondansetron 4 MG/2 ML SDV IV PRN (21:51)
[2018-12-20] MEDS: Insulin Lispro 100 Units/ML 3 ML Vial SUBCUT SCH (22:20)
[2018-12-20] MEDS ORDERED: Dextrose 5%-0.9% NaCl 1,000 ML IV SCH (22:45)
[2018-12-20] MEDS ORDERED: Metoprolol Succinate 50 MG Tab.ER PO SCH (23:00)
[2018-12-20] MEDS ORDERED: amLODIPine 5 MG Tab PO SCH (23:00)
[2018-12-20] MEDS ORDERED: hydrALAZINE 20 MG/ML SDV IVPUSH PRN (23:12)
[2018-12-20] MEDS ORDERED: Metoprolol Tartrate 5 MG/5 ML SDV IVPUSH PRN (23:12)
[2018-12-20] MEDS: Promethazine 12.5 MG in Sodium Chloride 0.9% 50 ML IV PRN (23:44)
[2018-12-21] MEDS: 50% Dextrose in Water 50 ML Syringe IVPUSH PRN (06:12)
[2018-12-21 07:38] LABS: HEMOGLOBIN A1C 4.6 % (4.50-6.20)
[2018-12-21] MEDS: Allopurinol 100 MG Tab PO SCH (08:53)
[2018-12-21] MEDS: Furosemide 40 MG Tab PO SCH (08:53)
[2018-12-21] MEDS: Aspirin 81 MG Tab.EC PO SCH (08:54)
[2018-12-21] MEDS ORDERED: Magnesium Sulfate/Water 4 GM in Premix Bag 1 BAG IV ONE (08:57)
[2018-12-21] MEDS ORDERED: amLODIPine 5 MG Tab PO SCH (09:00)
[2018-12-21] MEDS ORDERED: Metoprolol Succinate 50 MG Tab.ER PO SCH (09:00)
[2018-12-21] MEDS ORDERED: Tamoxifen 10 MG Tab PO SCH (09:00)
[2018-12-21] MEDS: Metoprolol Succinate 50 MG Tab.ER PO SCH (10:04)
[2018-12-21] MEDS: amLODIPine 5 MG Tab PO SCH (10:08)
[2018-12-21] MEDS: Insulin Lispro 100 Units/ML 3 ML Vial SUBCUT SCH ×4 (10:37→21:20)
[2018-12-21] MEDS: Dextrose 5% in Water 1,000 ML IV SCH (11:16)
[2018-12-21] MEDS: Ondansetron 4 MG/2 ML SDV IV PRN (11:57)
--- NOTE | 2018-12-21 14:17 | PCM.PN ---
- General Info Date of Service: 12/21/18 Admission Dx/Problem (Free Text): Admission Diagnosis/Problem Admission Diagnosis/Problem UTI, Urinary tract infectious disease Subjective Update: patient had episodes of nausea and hypertension overnight. She was unable take her oral medications for her blood pressure secondary to nausea so she developed blood pressures in the 180 systolic. She was given IV hydralazine which did help. She also was given IV Phenergan which helped her nausea. This morning she states that she is without nausea and feeling better. Functional Status: Reports: Pain Controlled - Review of Systems General: Reports: No Symptoms HEENT: Reports: No Symptoms Pulmonary: Reports: No Symptoms Cardiovascular: Reports: No Symptoms Gastrointestinal: Reports: No Symptoms - Patient Data Vitals - Most Recent: Last Vital Signs Temp 98.4 F 12/21/18 08:12 Pulse 88 12/21/18 11:27 Resp 14 12/21/18 11:27 BP 142/88 H 12/21/18 11:27 Pulse Ox 100 12/21/18 11:27 Weight - Most Recent: 134 lb 6.4 oz I&O - Last 24 Hours: Intake & Output 12/20/18 12/21/18 12/21/18 22:59 06:59 14:59 Intake Total 540 1661 120 Output Total 1500 Balance 540 161 120 Lab Results Last 24 Hours: Laboratory Results - last 24 hr 12/20/18 12/20/18 12/20/18 Range/Units 15:00 16:10 16:38 WBC (3.98-10.04) K/mm3 RBC (3.98-5.22) M/mm3 Hgb (11.2-15.7) gm/dl Hct (34.1-44.9) % MCV (79.4-94.8) fl MCH (25.6-32.2) pg MCHC (32.2-35.5) g/dl RDW Std Deviation (36.4-46.3) fL Plt Count (182-369) K/mm3 MPV (9.4-12.3) fl Neut % (Auto) (34.0-71.1) % Lymph % (Auto) (19.3-51.7) % Trinity % (Auto) (4.7-12.5) % Eos % (Auto) (0.7-5.8) Baso % (Auto) (0.1-1.2) % Neut # (Auto) (1.56-6.13) K/mm3 Lymph # (Auto) (1.18-3.74) K/mm3 Trinity # (Auto) (0.24-0.36) K/mm3 Eos # (Auto) (0.04-0.36) K/mm3 Baso # (Auto) (0.01-0.08) K/mm3 Manual Slide Review PT (9.7-12.0) SECONDS INR Sodium (136-145) mEq/L Potassium (3.5-5.1) mEq/L Chloride (98-107) mEq/L Carbon Dioxide (21-32) mEq/L Anion Gap (5-15) BUN (7-18) mg/dL Creatinine (0.55-1.02) mg/dL Est Cr Clr Drug Dosing mL/min Estimated GFR (MDRD) (>60) mL/min BUN/Creatinine Ratio (14-18) Glucose (83-115) mg/dL POC Glucose 38 L 150 H (83-110) mg/dL Hemoglobin A1c (4.50-6.20) % Calcium (8.5-10.1) mg/dL Magnesium (1.8-2.4) mg/dl Total Bilirubin (0.2-1.0) mg/dL AST (15-37) U/L ALT (14-59) U/L Alkaline Phosphatase (46-116) U/L Total Protein (6.4-8.2) g/dl Albumin (3.4-5.0) g/dl Globulin gm/dL Albumin/Globulin Ratio (1-2) MRSA (PCR) Negative 12/20/18 12/20/18 12/20/18 Range/Units 18:46 20:59 21:54 WBC (3.98-10.04) K/mm3 RBC (3.98-5.22) M/mm3 Hgb (11.2-15.7) gm/dl Hct (34.1-44.9) % MCV (79.4-94.8) fl MCH (25.6-32.2) pg MCHC (32.2-35.5) g/dl RDW Std Deviation (36.4-46.3) fL Plt Count (182-369) K/mm3 MPV (9.4-12.3) fl Neut % (Auto) (34.0-71.1) % Lymph % (Auto) (19.3-51.7) % Trinity % (Auto) (4.7-12.5) % Eos % (Auto) (0.7-5.8) Baso % (Auto) (0.1-1.2) % Neut # (Auto) (1.56-6.13) K/mm3 Lymph # (Auto) (1.18-3.74) K/mm3 Trinity # (Auto) (0.24-0.36) K/mm3 Eos # (Auto) (0.04-0.36) K/mm3 Baso # (Auto) (0.01-0.08) K/mm3 Manual Slide Review PT 41.3 H D (9.7-12.0) SECONDS INR 4.10 Sodium (136-145) mEq/L Potassium (3.5-5.1) mEq/L Chloride (98-107) mEq/L Carbon Dioxide (21-32) mEq/L Anion Gap (5-15) BUN (7-18) mg/dL Creatinine (0.55-1.02) mg/dL Est Cr Clr Drug Dosing mL/min Estimated GFR (MDRD) (>60) mL/min BUN/Creatinine Ratio (14-18) Glucose (83-115) mg/dL POC Glucose 67 L 78 L (83-110) mg/dL Hemoglobin A1c (4.50-6.20) % Calcium (8.5-10.1) mg/dL Magnesium (1.8-2.4) mg/dl Total Bilirubin (0.2-1.0) mg/dL AST (15-37) U/L ALT (14-59) U/L Alkaline Phosphatase (46-116) U/L Total Protein (6.4-8.2) g/dl Albumin (3.4-5.0) g/dl Globulin gm/dL Albumin/Globulin Ratio (1-2) MRSA (PCR) 12/20/18 12/21/18 12/21/18 Range/Units 22:22 05:12 05:12 WBC 6.84 (3.98-10.04) K/mm3 RBC 3.02 L (3.98-5.22) M/mm3 Hgb 9.1 L D (11.2-15.7) gm/dl Hct 29.3 L (34.1-44.9) % MCV 97.0 H (79.4-94.8) fl MCH 30.1 (25.6-32.2) pg MCHC 31.1 L (32.2-35.5) g/dl RDW Std Deviation 49.3 H (36.4-46.3) fL Plt Count 176 L (182-369) K/mm3 MPV 10.3 (9.4-12.3) fl Neut % (Auto) 75.0 H (34.0-71.1) % Lymph % (Auto) 14.3 L (19.3-51.7) % Trinity % (Auto) 9.1 (4.7-12.5) % Eos % (Auto) 0.6 L (0.7-5.8) Baso % (Auto) 0.7 (0.1-1.2) % Neut # (Auto) 5.13 (1.56-6.13) K/mm3 Lymph # (Auto) 0.98 L (1.18-3.74) K/mm3 Trinity # (Auto) 0.62 H (0.24-0.36) K/mm3 Eos # (Auto) 0.04 (0.04-0.36) K/mm3 Baso # (Auto) 0.05 (0.01-0.08) K/mm3 Manual Slide Review Not Reportable PT (9.7-12.0) SECONDS INR Sodium 146 H (136-145) mEq/L Potassium 4.2 (3.5-5.1) mEq/L Chloride 114 H (98-107) mEq/L Carbon Dioxide 18 L (21-32) mEq/L Anion Gap 18.2 H (5-15) BUN 61 H (7-18) mg/dL Creatinine 3.3 H (0.55-1.02) mg/dL Est Cr Clr Drug Dosing 9.40 mL/min Estimated GFR (MDRD) 13 (>60) mL/min BUN/Creatinine Ratio 18.5 H (14-18) Glucose 87 (83-115) mg/dL POC Glucose 117 H (83-110) mg/dL Hemoglobin A1c (4.50-6.20) % Calcium 8.1 L (8.5-10.1) mg/dL Magnesium 1.7 L (1.8-2.4) mg/dl Total Bilirubin 0.2 (0.2-1.0) mg/dL AST 28 (15-37) U/L ALT 12 L (14-59) U/L Alkaline Phosphatase 44 L (46-116) U/L Total Protein 6.5 (6.4-8.2) g/dl Albumin 2.7 L (3.4-5.0) g/dl Globulin 3.8 gm/dL Albumin/Globulin Ratio 0.7 L (1-2) MRSA (PCR) 12/21/18 12/21/18 12/21/18 Range/Units 05:12 05:12 06:02 WBC (3.98-10.04) K/mm3 RBC (3.98-5.22) M/mm3 Hgb (11.2-15.7) gm/dl Hct (34.1-44.9) % MCV (79.4-94.8) fl MCH (25.6-32.2) pg MCHC (32.2-35.5) g/dl RDW Std Deviation (36.4-46.3) fL Plt Count (182-369) K/mm3 MPV (9.4-12.3) fl Neut % (Auto) (34.0-71.1) % Lymph % (Auto) (19.3-51.7) % Trinity % (Auto) (4.7-12.5) % Eos % (Auto) (0.7-5.8) Baso % (Auto) (0.1-1.2) % Neut # (Auto) (1.56-6.13) K/mm3 Lymph # (Auto) (1.18-3.74) K/mm3 Trinity # (Auto) (0.24-0.36) K/mm3 Eos # (Auto) (0.04-0.36) K/mm3 Baso # (Auto) (0.01-0.08) K/mm3 Manual Slide Review PT 46.6 H (9.7-12.0) SECONDS INR 4.66 Sodium (136-145) mEq/L Potassium (3.5-5.1) mEq/L Chloride (98-107) mEq/L Carbon Dioxide (21-32) mEq/L Anion Gap (5-15) BUN (7-18) mg/dL Creatinine (0.55-1.02) mg/dL Est Cr Clr Drug Dosing mL/min Estimated GFR (MDRD) (>60) mL/min BUN/Creatinine Ratio (14-18) Glucose (83-115) mg/dL POC Glucose 79 L (83-110) mg/dL Hemoglobin A1c 4.60 (4.50-6.20) % Calcium (8.5-10.1) mg/dL Magnesium (1.8-2.4) mg/dl Total Bilirubin (0.2-1.0) mg/dL AST (15-37) U/L ALT (14-59) U/L Alkaline Phosphatase (46-116) U/L Total Protein (6.4-8.2) g/dl Albumin (3.4-5.0) g/dl Globulin gm/dL Albumin/Globulin Ratio (1-2) MRSA (PCR) 12/21/18 12/21/18 Range/Units 06:36 11:09 WBC (3.98-10.04) K/mm3 RBC (3.98-5.22) M/mm3 Hgb (11.2-15.7) gm/dl Hct (34.1-44.9) % MCV (79.4-94.8) fl MCH (25.6-32.2) pg MCHC (32.2-35.5) g/dl RDW Std Deviation (36.4-46.3) fL Plt Count (182-369) K/mm3 MPV (9.4-12.3) fl Neut % (Auto) (34.0-71.1) % Lymph % (Auto) (19.3-51.7) % Trinity % (Auto) (4.7-12.5) % Eos % (Auto) (0.7-5.8) Baso % (Auto) (0.1-1.2) % Neut # (Auto) (1.56-6.13) K/mm3 Lymph # (Auto) (1.18-3.74) K/mm3 Trinity # (Auto) (0.24-0.36) K/mm3 Eos # (Auto) (0.04-0.36) K/mm3 Baso # (Auto) (0.01-0.08) K/mm3 Manual Slide Review PT (9.7-12.0) SECONDS INR Sodium (136-145) mEq/L Potassium (3.5-5.1) mEq/L Chloride (98-107) mEq/L Carbon Dioxide (21-32) mEq/L Anion Gap (5-15) BUN (7-18) mg/dL Creatinine (0.55-1.02) mg/dL Est Cr Clr Drug Dosing mL/min Estimated GFR (MDRD) (>60) mL/min BUN/Creatinine Ratio (14-18) Glucose (83-115) mg/dL POC Glucose 141 H 103 (83-110) mg/dL Hemoglobin A1c (4.50-6.20) % Calcium (8.5-10.1) mg/dL Magnesium (1.8-2.4) mg/dl Total Bilirubin (0.2-1.0) mg/dL AST (15-37) U/L ALT (14-59) U/L Alkaline Phosphatase (46-116) U/L Total Protein (6.4-8.2) g/dl Albumin (3.4-5.0) g/dl Globulin gm/dL Albumin/Globulin Ratio (1-2) MRSA (PCR) Marcial Results Last 24 Hours: Microbiology 12/20/18 12:30 Urine Culture - Preliminary Urine, Clean Catch Gram Negative Rods Med Orders - Current: Current Medications Acetaminophen (Tylenol) 650 mg PO Q4H PRN PRN Reason: Pain (Mild 1-3)/fever Allopurinol (Zyloprim) 100 mg PO DAILY [facility] Last Admin: 12/21/18 08:53 Dose: 100 mg Amlodipine Besylate (Norvasc) 5 mg PO DAILY [facility] Last Admin: 12/21/18 10:08 Dose: 5 mg Aspirin (Halfprin) 81 mg PO DAILY [facility] Last Admin: 12/21/18 08:54 Dose: 81 mg Dextrose/Water (Dextrose 50% In Water) 50 ml IVPUSH ASDIRECTED PRN PRN Reason: Hypoglycemia Last Admin: 12/21/18 06:12 Dose: 25 ml Furosemide (Lasix) 40 mg PO DAILY [facility] Last Admin: 12/21/18 08:53 Dose: 40 mg Hydralazine HCl (Apresoline) 10 mg IVPUSH Q4H PRN PRN Reason: Hypertension Last Admin: 12/20/18 23:47 Dose: 10 mg Ceftriaxone Sodium 1 gm/ (Sodium Chloride) 100 mls @ 200 mls/hr IV Q24H [facility] Promethazine HCl 12.5 mg/ (Sodium Chloride) 50.5 mls @ 100 mls/hr IV Q4HR PRN PRN Reason: Nausea Last Admin: 12/20/18 23:44 Dose: 100 mls/hr Dextrose/Water (Dextrose 5% In Water) 1,000 mls @ 50 mls/hr IV ASDIRECTED [facility] Last Admin: 12/21/18 11:16 Dose: 50 mls/hr Insulin Human Lispro (Humalog) 0 unit SUBCUT QIDACANDBED [facility]; Protocol Last Admin: 12/21/18 10:37 Dose: Not Given Metoprolol Succinate (Toprol Xl) 100 mg PO DAILY [facility] Last Admin: 12/21/18 10:04 Dose: 100 mg Metoprolol Tartrate (Lopressor) 5 mg IVPUSH Q1H PRN PRN Reason: Tachycardia Last Admin: 12/21/18 04:14 Dose: 5 mg Ondansetron HCl (Zofran Odt) 4 mg PO Q4H PRN PRN Reason: nausea, able to take PO Ondansetron HCl (Zofran) 4 mg IV Q4H PRN PRN Reason: Nausea/Vomiting Last Admin: 12/21/18 11:57 Dose: 4 mg Tamoxifen Citrate (Nolvadex) 20 mg PO DAILY [facility] Last Admin: 12/21/18 08:55 Dose: 20 mg Warfarin Sodium (Pharmacy To Dose - Warfarin) 1 dose .XX ASDIRECTED PRN PRN Reason: RX TO DOSE WARFARIN Warfarin Sodium (Coumadin Sliding Scale) 0 each PO QPM [facility] Stop: 12/21/18 18:01 Discontinued Medications Amlodipine Besylate (Norvasc) 5 mg PO DAILY [facility] Amlodipine Besylate (Norvasc) 5 mg PO BEDTIME [facility] Last Admin: 12/20/18 23:13 Dose: Not Given Sodium Chloride (Normal Saline) 1,000 mls @ 999 mls/hr IV ASDIRECTED [facility] Last Admin: 12/20/18 10:29 Dose: 999 mls/hr Sodium Chloride (Normal Saline) 1,000 mls @ 999 mls/hr IV ONETIME ONE Stop: 12/20/18 13:44 Last Admin: 12/20/18 13:33 Dose: 999 mls/hr Ceftriaxone Sodium 1 gm/ (Sodium Chloride) 100 mls @ 200 mls/hr IV Q24H [facility] Last Admin: 12/20/18 13:33 Dose: 200 mls/hr Sodium Chloride (Normal Saline) 1,000 mls @ 125 mls/hr IV ASDIRECTED [place] Sodium Chloride (Normal Saline) 1,000 mls @ 50 mls/hr IV ASDIRECTED [place] Last Admin: 12/20/18 22:22 Dose: 50 mls/hr Dextrose/Sodium Chloride (Dextrose 5%-Normal Saline) 1,000 mls @ 50 mls/hr IV ASDIRECTED [place] Last Admin: 12/20/18 23:15 Dose: 50 mls/hr Magnesium Sulfate 4 gm/ Premix 50 mls @ 12.5 mls/hr IV ONETIME ONE Stop: 12/21/18 12:56 Last Admin: 12/21/18 10:10 Dose: 12.5 mls/hr Metoprolol Succinate (Toprol Xl) 100 mg PO DAILY [facility] Metoprolol Succinate (Toprol Xl) 100 mg PO BEDTIME [facility] Last Admin: 12/20/18 23:14 Dose: Not Given No Warfarin Dose (Needed On 12/20/18) 0 each PO ONETIME ONE Stop: 12/20/18 19:46 Last Admin: 12/20/18 20:59 Dose: Not Given Ondansetron HCl (Zofran) 4 mg IVPUSH ONETIME ONE Stop: 12/20/18 10:17 Last Admin: 12/20/18 10:27 Dose: 4 mg Warfarin Sodium (Coumadin) 2.5 mg PO SUTUTHSA [facility] Warfarin Sodium (Coumadin) 7.5 mg PO MOWEFR [facility] Last Admin: 12/20/18 23:21 Dose: Not Given - Exam Quality Assessment: No: Supplemental Oxygen General: Alert, Oriented HEENT: Pupils Equal, Pupils Reactive, EOMI, Mucous Membr. Moist/Silt Neck: Supple Lungs: Normal Respiratory Effort, Rales Cardiovascular: Regular Rate, Regular Rhythm Extremities: Normal Inspection, Pedal Edema Skin: Warm, Dry, Intact Psy/Mental Status: Alert, Normal Affect, Normal Mood - Problem List Review Problem List Initiated/Reviewed/Updated: Yes - My Orders Last 24 Hours: My Active Orders 12/20/18 16:13 Dextrose 50% in Water 50 ml IVPUSH ASDIRECTED PRN 12/20/18 17:06 Blood Glucose Check, Bedside [RC] WITHMEALSANDBED Oxygen Therapy [RC] PRN Up ad Sumaya [RC] ASDIRECTED VTE/DVT Education [RC] BID Vital Signs [RC] Q4HR Acetaminophen [Tylenol] 650 mg PO Q4H PRN Ondansetron [Zofran ODT] 4 mg PO Q4H PRN Ondansetron [Zofran] 4 mg IV Q4H PRN Antiembolic Hose [OM.PC] Per Unit Routine Resuscitation Status Routine 12/20/18 17:08 Antiembolic Devices [RC] BID Consult to Carpentry Specialist [CONS] Routine OT Evaluation and Treatment [CONS] Routine PT Evaluation and Treatment [CONS] Routine 12/20/18 17:15 Pharmacy to Dose - Warfarin 1 dose .XX ASDIRECTED PRN 12/20/18 22:00 Insulin Lispro [HumaLOG] See Protocol SUBCUT QIDACANDBED 12/20/18 23:12 Metoprolol Tartrate [Lopressor] 5 mg IVPUSH Q1H PRN hydrALAZINE [Apresoline] 10 mg IVPUSH Q4H PRN 12/20/18 23:22 Promethazine [Phenergan] 12.5 mg Sodium Chloride 0.9% [Normal Saline] 50 ml IV Q4HR 12/20/18 Dinner Full Liquid Diet [DIET] 12/21/18 09:00 Allopurinol [Zyloprim] 100 mg PO DAILY Aspirin [Halfprin] 81 mg PO DAILY Furosemide [Lasix] 40 mg PO DAILY Metoprolol Succinate [Toprol XL] 100 mg PO DAILY Tamoxifen [Nolvadex] 20 mg PO DAILY amLODIPine [Norvasc] 5 mg PO DAILY 12/21/18 10:30 Dextrose 5% in Water 1,000 ml IV ASDIRECTED 12/21/18 11:23 IS (RT) [RT Incentive Spirometry] [RC] ASDIRECTED 12/21/18 13:00 cefTRIAXone [Rocephin] 1 gm Sodium Chloride 0.9% [Normal Saline] 100 ml IV Q24H 12/21/18 18:00 Warfarin Sliding Scale [Coumadin Sliding Scale] 0 each PO QPM 12/22/18 05:11 CBC WITH AUTO DIFF [HEME] AM COMPREHENSIVE METABOLIC PN,CMP [CHEM] AM INR,PT,PROTHROMBIN TIME [COAG] AM MAGNESIUM [CHEM] AM 12/23/18 05:11 CBC WITH AUTO DIFF [HEME] AM COMPREHENSIVE METABOLIC PN,CMP [CHEM] AM INR,PT,PROTHROMBIN TIME [COAG] AM MAGNESIUM [CHEM] AM 12/24/18 05:11 CBC WITH AUTO DIFF [HEME] AM COMPREHENSIVE METABOLIC PN,CMP [CHEM] AM INR,PT,PROTHROMBIN TIME [COAG] AM MAGNESIUM [CHEM] AM 12/25/18 05:11 CBC WITH AUTO DIFF [HEME] AM COMPREHENSIVE METABOLIC PN,CMP [CHEM] AM INR,PT,PROTHROMBIN TIME [COAG] AM MAGNESIUM [CHEM] AM - Plan Plan:: Assessment * 83-year-old female with history of insulin-dependent diabetes, stage V renal failure, 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 This is likely secondary to fluid resuscitation. Continue to monitor closely. Plan * Admit to medical floor * switch to D5W at 50 mL per hour - secondary to hypernatremia and hypoglycemia. We will want to stop this as soon as possible because she has developed some rales in her lungs, but at this time preventing hypoglycemia is paramount. Also, increased oral intake will help both conditions. * Full liquid diet and advance as tolerated * Follow blood sugars closely * Hold Lantus and use sliding scale insulin as needed * Hemoglobin A1c in the morning. Patient may not need to be on insulin with such severe renal disease. * consult PT, OT, dietary * Zofran and Phenergan for nausea * Rocephin 1 g every 24 hours * Urine culture * Pharmacy to dose Coumadin, INR and daily INR * CBC, CMP, and magnesium in the morning and daily * VTE prophylaxis with Coumadin * CODE STATUS: DNR/DNI * Length of stay 2-3 days.
[2018-12-21] MEDS: Promethazine 12.5 MG in Sodium Chloride 0.9% 50 ML IV PRN (14:51)
[2018-12-21] MEDS: cefTRIAXone 1 GM in Sodium Chloride 0.9% 100 ML IV SCH (15:33)
[2018-12-21] MEDS ORDERED: Warfarin 2.5 MG Tab PO SCH (17:11)
[2018-12-21] MEDS ORDERED: Warfarin Sliding Scale PO SCH (18:00)
[2018-12-21] MEDS ORDERED: [UNRECOGNIZED DRUG - REMARK] ONE (18:00)
[2018-12-22] MEDS: Dextrose 5% in Water 1,000 ML IV SCH (07:29)
[2018-12-22] MEDS: Insulin Lispro 100 Units/ML 3 ML Vial SUBCUT SCH ×2 (08:27→12:26)
[2018-12-22] MEDS ORDERED: Non-Formulary Medication 1 Each SCH (09:00)
[2018-12-22] MEDS ORDERED: Phytonadione ORAL 2.5mg/2.5ml Soln Simple Syrup U/D PO ONE (09:00)
[2018-12-22] MEDS ORDERED: Sodium Chloride 0.9% 10 ML Syringe FLUSH PRN (09:12)
[2018-12-22] MEDS: Aspirin 81 MG Tab.EC PO SCH ×2 (09:17→10:20)
[2018-12-22] MEDS: Metoprolol Succinate 50 MG Tab.ER PO SCH (09:17)
[2018-12-22] MEDS: Furosemide 40 MG Tab PO SCH (09:17)
[2018-12-22] MEDS: amLODIPine 5 MG Tab PO SCH (09:19)
[2018-12-22] MEDS: Allopurinol 100 MG Tab PO SCH (09:19)
[2018-12-22] MEDS: cefTRIAXone 1 GM in Sodium Chloride 0.9% 100 ML IV SCH (12:45)
--- NOTE | 2018-12-22 14:02 | PCM.PN ---
- General Info Date of Service: 12/22/18 Admission Dx/Problem (Free Text): Admission Diagnosis/Problem Admission Diagnosis/Problem UTI, Urinary tract infectious disease Subjective Update: patient states that she is doing well. She has no complaints. She denies any melena, hematochezia, nausea has improved and no vomiting. She denies any abdominal pain. Hb dropped this AM to 8.1 and INR increased to 5.0. - Review of Systems General: Reports: No Symptoms HEENT: Reports: No Symptoms Pulmonary: Reports: No Symptoms Cardiovascular: Reports: No Symptoms Gastrointestinal: Reports: No Symptoms Genitourinary: Reports: No Symptoms. Denies: Hematuria - Patient Data Vitals - Most Recent: Last Vital Signs Temp 98.4 F 12/22/18 12:45 Pulse 64 12/22/18 12:45 Resp 14 12/22/18 12:45 BP 145/42 H 12/22/18 12:45 Pulse Ox 98 12/22/18 12:45 Weight - Most Recent: 136 lb 8 oz I&O - Last 24 Hours: Intake & Output 12/21/18 12/22/18 12/22/18 22:59 06:59 14:59 Intake Total 1000 750 440 Output Total 400 800 Balance 600 -50 440 Lab Results Last 24 Hours: Laboratory Results - last 24 hr 12/21/18 12/21/18 12/21/18 Range/Units 14:27 17:21 21:14 WBC (3.98-10.04) K/mm3 RBC (3.98-5.22) M/mm3 Hgb 10.1 L (11.2-15.7) gm/dl Hct 32.0 L (34.1-44.9) % MCV (79.4-94.8) fl MCH (25.6-32.2) pg MCHC (32.2-35.5) g/dl RDW Std Deviation (36.4-46.3) fL Plt Count (182-369) K/mm3 MPV (9.4-12.3) fl Neut % (Auto) (34.0-71.1) % Lymph % (Auto) (19.3-51.7) % Mercer % (Auto) (4.7-12.5) % Eos % (Auto) (0.7-5.8) Baso % (Auto) (0.1-1.2) % Neut # (Auto) (1.56-6.13) K/mm3 Lymph # (Auto) (1.18-3.74) K/mm3 Mercer # (Auto) (0.24-0.36) K/mm3 Eos # (Auto) (0.04-0.36) K/mm3 Baso # (Auto) (0.01-0.08) K/mm3 PT (9.7-12.0) SECONDS INR Sodium (136-145) mEq/L Potassium (3.5-5.1) mEq/L Chloride (98-107) mEq/L Carbon Dioxide (21-32) mEq/L Anion Gap (5-15) BUN (7-18) mg/dL Creatinine (0.55-1.02) mg/dL Est Cr Clr Drug Dosing mL/min Estimated GFR (MDRD) (>60) mL/min BUN/Creatinine Ratio (14-18) Glucose (83-115) mg/dL POC Glucose 141 H 139 H (83-110) mg/dL Calcium (8.5-10.1) mg/dL Magnesium (1.8-2.4) mg/dl Total Bilirubin (0.2-1.0) mg/dL AST (15-37) U/L ALT (14-59) U/L Alkaline Phosphatase (46-116) U/L Total Protein (6.4-8.2) g/dl Albumin (3.4-5.0) g/dl Globulin gm/dL Albumin/Globulin Ratio (1-2) 12/22/18 12/22/18 12/22/18 Range/Units 05:10 05:10 05:10 WBC 5.54 (3.98-10.04) K/mm3 RBC 2.65 L (3.98-5.22) M/mm3 Hgb 8.1 L D (11.2-15.7) gm/dl Hct 25.7 L (34.1-44.9) % MCV 97.0 H (79.4-94.8) fl MCH 30.6 (25.6-32.2) pg MCHC 31.5 L (32.2-35.5) g/dl RDW Std Deviation 49.4 H (36.4-46.3) fL Plt Count 150 L (182-369) K/mm3 MPV 10.2 (9.4-12.3) fl Neut % (Auto) 59.8 (34.0-71.1) % Lymph % (Auto) 24.7 (19.3-51.7) % Mercer % (Auto) 10.6 (4.7-12.5) % Eos % (Auto) 3.4 (0.7-5.8) Baso % (Auto) 1.3 H (0.1-1.2) % Neut # (Auto) 3.31 (1.56-6.13) K/mm3 Lymph # (Auto) 1.37 (1.18-3.74) K/mm3 Mercer # (Auto) 0.59 H (0.24-0.36) K/mm3 Eos # (Auto) 0.19 (0.04-0.36) K/mm3 Baso # (Auto) 0.07 (0.01-0.08) K/mm3 PT 50.3 H* (9.7-12.0) SECONDS INR 5.06 H* Sodium 142 (136-145) mEq/L Potassium 3.8 (3.5-5.1) mEq/L Chloride 113 H (98-107) mEq/L Carbon Dioxide 19 L (21-32) mEq/L Anion Gap 13.8 (5-15) BUN 51 H (7-18) mg/dL Creatinine 3.3 H (0.55-1.02) mg/dL Est Cr Clr Drug Dosing 9.40 mL/min Estimated GFR (MDRD) 13 (>60) mL/min BUN/Creatinine Ratio 15.5 (14-18) Glucose 88 (83-115) mg/dL POC Glucose (83-110) mg/dL Calcium 7.7 L (8.5-10.1) mg/dL Magnesium 2.8 H (1.8-2.4) mg/dl Total Bilirubin 0.2 (0.2-1.0) mg/dL AST 22 (15-37) U/L ALT 13 L (14-59) U/L Alkaline Phosphatase 39 L (46-116) U/L Total Protein 5.7 L (6.4-8.2) g/dl Albumin 2.3 L (3.4-5.0) g/dl Globulin 3.4 gm/dL Albumin/Globulin Ratio 0.7 L (1-2) 12/22/18 12/22/18 12/22/18 Range/Units 06:25 09:00 11:42 WBC (3.98-10.04) K/mm3 RBC (3.98-5.22) M/mm3 Hgb 8.8 L (11.2-15.7) gm/dl Hct 27.8 L (34.1-44.9) % MCV (79.4-94.8) fl MCH (25.6-32.2) pg MCHC (32.2-35.5) g/dl RDW Std Deviation (36.4-46.3) fL Plt Count (182-369) K/mm3 MPV (9.4-12.3) fl Neut % (Auto) (34.0-71.1) % Lymph % (Auto) (19.3-51.7) % Mercer % (Auto) (4.7-12.5) % Eos % (Auto) (0.7-5.8) Baso % (Auto) (0.1-1.2) % Neut # (Auto) (1.56-6.13) K/mm3 Lymph # (Auto) (1.18-3.74) K/mm3 Mercer # (Auto) (0.24-0.36) K/mm3 Eos # (Auto) (0.04-0.36) K/mm3 Baso # (Auto) (0.01-0.08) K/mm3 PT (9.7-12.0) SECONDS INR Sodium (136-145) mEq/L Potassium (3.5-5.1) mEq/L Chloride (98-107) mEq/L Carbon Dioxide (21-32) mEq/L Anion Gap (5-15) BUN (7-18) mg/dL Creatinine (0.55-1.02) mg/dL Est Cr Clr Drug Dosing mL/min Estimated GFR (MDRD) (>60) mL/min BUN/Creatinine Ratio (14-18) Glucose (83-115) mg/dL POC Glucose 86 85 (83-110) mg/dL Calcium (8.5-10.1) mg/dL Magnesium (1.8-2.4) mg/dl Total Bilirubin (0.2-1.0) mg/dL AST (15-37) U/L ALT (14-59) U/L Alkaline Phosphatase (46-116) U/L Total Protein (6.4-8.2) g/dl Albumin (3.4-5.0) g/dl Globulin gm/dL Albumin/Globulin Ratio (1-2) Marcial Results Last 24 Hours: Microbiology 12/20/18 12:30 Urine Culture - Final Urine, Clean Catch Klebsiella Pneumoniae Med Orders - Current: Current Medications Acetaminophen (Tylenol) 650 mg PO Q4H PRN PRN Reason: Pain (Mild 1-3)/fever Allopurinol (Zyloprim) 100 mg PO DAILY [facility] Last Admin: 12/22/18 09:19 Dose: 100 mg Amlodipine Besylate (Norvasc) 5 mg PO DAILY [facility] Last Admin: 12/22/18 09:19 Dose: 5 mg Dextrose/Water (Dextrose 50% In Water) 50 ml IVPUSH ASDIRECTED PRN PRN Reason: Hypoglycemia Last Admin: 12/21/18 06:12 Dose: 25 ml Furosemide (Lasix) 40 mg PO DAILY [facility] Last Admin: 12/22/18 09:17 Dose: 40 mg Hydralazine HCl (Apresoline) 10 mg IVPUSH Q4H PRN PRN Reason: Hypertension Last Admin: 12/20/18 23:47 Dose: 10 mg Ceftriaxone Sodium 1 gm/ (Sodium Chloride) 100 mls @ 200 mls/hr IV Q24H [facility] Last Admin: 12/22/18 12:45 Dose: 200 mls/hr Promethazine HCl 12.5 mg/ (Sodium Chloride) 50.5 mls @ 100 mls/hr IV Q4HR PRN PRN Reason: Nausea Last Admin: 12/21/18 14:51 Dose: 100 mls/hr Insulin Human Lispro (Humalog) 0 unit SUBCUT QIDACANDBED [facility]; Protocol Last Admin: 12/22/18 12:26 Dose: Not Given Metoprolol Succinate (Toprol Xl) 100 mg PO DAILY [facility] Last Admin: 12/22/18 09:17 Dose: 100 mg Metoprolol Tartrate (Lopressor) 5 mg IVPUSH Q1H PRN PRN Reason: Tachycardia Last Admin: 12/21/18 04:14 Dose: 5 mg Ondansetron HCl (Zofran Odt) 4 mg PO Q4H PRN PRN Reason: nausea, able to take PO Ondansetron HCl (Zofran) 4 mg IV Q4H PRN PRN Reason: Nausea/Vomiting Last Admin: 12/21/18 11:57 Dose: 4 mg Sodium Chloride (Saline Flush) 10 ml FLUSH ASDIRECTED PRN PRN Reason: Keep Vein Open Warfarin Sodium (Pharmacy To Dose - Warfarin) 1 dose .XX ASDIRECTED PRN PRN Reason: RX TO DOSE WARFARIN Warfarin Sodium (Coumadin Sliding Scale) 0 each PO QPM [facility] Stop: 12/22/18 18:01 Discontinued Medications Amlodipine Besylate (Norvasc) 5 mg PO DAILY [facility] Amlodipine Besylate (Norvasc) 5 mg PO BEDTIME [facility] Last Admin: 12/20/18 23:13 Dose: Not Given Aspirin (Halfprin) 81 mg PO DAILY [facility] Last Admin: 12/22/18 10:20 Dose: Not Given Sodium Chloride (Normal Saline) 1,000 mls @ 999 mls/hr IV ASDIRECTED [facility] Last Admin: 12/20/18 10:29 Dose: 999 mls/hr Sodium Chloride (Normal Saline) 1,000 mls @ 999 mls/hr IV ONETIME ONE Stop: 12/20/18 13:44 Last Admin: 12/20/18 13:33 Dose: 999 mls/hr Ceftriaxone Sodium 1 gm/ (Sodium Chloride) 100 mls @ 200 mls/hr IV Q24H [facility] Last Admin: 12/20/18 13:33 Dose: 200 mls/hr Sodium Chloride (Normal Saline) 1,000 mls @ 125 mls/hr IV ASDIRECTED [facility] Sodium Chloride (Normal Saline) 1,000 mls @ 50 mls/hr IV ASDIRECTED [facility] Last Admin: 12/20/18 22:22 Dose: 50 mls/hr Dextrose/Sodium Chloride (Dextrose 5%-Normal Saline) 1,000 mls @ 50 mls/hr IV ASDIRECTED [facility] Last Admin: 12/20/18 23:15 Dose: 50 mls/hr Magnesium Sulfate 4 gm/ Premix 50 mls @ 12.5 mls/hr IV ONETIME ONE Stop: 12/21/18 12:56 Last Admin: 12/21/18 10:10 Dose: 12.5 mls/hr Dextrose/Water (Dextrose 5% In Water) 1,000 mls @ 50 mls/hr IV ASDIRECTED [facility] Last Admin: 12/22/18 07:29 Dose: 50 mls/hr Metoprolol Succinate (Toprol Xl) 100 mg PO DAILY [facility] Metoprolol Succinate (Toprol Xl) 100 mg PO BEDTIME [facility] Last Admin: 12/20/18 23:14 Dose: Not Given No Warfarin Dose (Needed On 12/20/18) 0 each PO ONETIME ONE Stop: 12/20/18 19:46 Last Admin: 12/20/18 20:59 Dose: Not Given Non-Formulary Medication (Nf Drug) 0 each .XX DAILY [facility] Warfarin No Dose (Needed) 0 each .XX ONETIME ONE Stop: 12/21/18 18:01 Last Admin: 12/21/18 17:05 Dose: Not Given Ondansetron HCl (Zofran) 4 mg IVPUSH ONETIME ONE Stop: 12/20/18 10:17 Last Admin: 12/20/18 10:27 Dose: 4 mg Phytonadione (Aquamephyton) 2.5 mg PO ONETIME ONE Stop: 12/22/18 09:01 Last Admin: 12/22/18 09:17 Dose: 2.5 mg Tamoxifen Citrate (Nolvadex) 20 mg PO DAILY [facility] Last Admin: 12/21/18 08:55 Dose: 20 mg Warfarin Sodium (Pharmacy To Dose - Warfarin) 1 dose .XX ASDIRECTED PRN PRN Reason: RX TO DOSE WARFARIN Warfarin Sodium (Coumadin) 2.5 mg PO SUTUTHSA [facility] Warfarin Sodium (Coumadin) 7.5 mg PO MOWEFR [facility] Last Admin: 12/20/18 23:21 Dose: Not Given Warfarin Sodium (Coumadin Sliding Scale) 0 each PO QPM [facility] Stop: 12/21/18 18:01 Last Admin: 12/21/18 17:05 Dose: Not Given - Exam General: Alert, Oriented HEENT: Pupils Equal Neck: Supple Lungs: Clear to Auscultation, Normal Respiratory Effort Cardiovascular: Regular Rate, Regular Rhythm GI/Abdominal Exam: Normal Bowel Sounds, Soft, Non-Tender, No Distention, Other ( rectal exam showed scant brown stool which was sent for occult blood testing) Extremities: Normal Inspection, Normal Range of Motion, No Pedal Edema Skin: Warm, Dry, Intact Psy/Mental Status: Alert, Normal Affect, Normal Mood EKG INTERPRETATION EKG Date: 12/22/18 Rhythm: NSR Rate (Beats/Min): 69 [place]: LAD-Left [place] Deviation P-Wave: Present QRS: Normal (q waves in III, aVF, V1 and V2) ST-T: Normal QT: Normal EKG Interpretation Comments: NSR with 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 - Problem List Review Problem List Initiated/Reviewed/Updated: Yes - My Orders Last 24 Hours: My Active Orders 12/21/18 13:00 [email or web address] [Rocephin] 1 gm Sodium Chloride 0.9% [Normal Saline] 100 ml IV Q24H 12/22/18 08:07 Warfarin Pharmacy to Dose [Pharmacy to Dose - Warfarin] 1 dose .XX ASDIRECTED PRN 12/22/18 08:45 OCCULT BLOOD SCREEN [OP] Routine 12/22/18 09:12 Sodium Chloride 0.9% [Saline Flush] 10 ml FLUSH ASDIRECTED PRN Convert IV to Saline Lock [OM.PC] Routine 12/22/18 09:13 EKG 12 Lead [EKG Documentation Completion] [RC] ROUTINE 12/22/18 18:00 Warfarin Sliding Scale [Coumadin Sliding Scale] 0 each PO QPM 12/23/18 05:11 CBC WITH AUTO DIFF [HEME] AM COMPREHENSIVE METABOLIC PN,CMP [CHEM] AM INR,PT,PROTHROMBIN TIME [COAG] AM MAGNESIUM [CHEM] AM 12/24/18 05:11 CBC WITH AUTO DIFF [HEME] AM COMPREHENSIVE METABOLIC PN,CMP [CHEM] AM INR,PT,PROTHROMBIN TIME [COAG] AM MAGNESIUM [CHEM] AM 12/25/18 05:11 CBC WITH AUTO DIFF [HEME] AM COMPREHENSIVE METABOLIC PN,CMP [CHEM] AM INR,PT,PROTHROMBIN TIME [COAG] AM MAGNESIUM [CHEM] AM - Plan Plan:: Assessment * 83-year-old female with history of insulin-dependent diabetes, stage V renal failure, 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 Pneumoniae - sensitive to Rocephin * chronic kidney disease, stage V with a creatinine of 3.8-->3.3 and a BUN of 71 -->61 with a creatinine clearance of 9; June 24, 2018 creatinine was 3.8 and BUN was 80 * supratherapeutic INR at 4.1-->4.66-->5.0 * Anemia with hemoglobin dropping to 9.1. This is likely secondary to fluid resuscitation. Continue to monitor closely. Today's hemoglobin 8.1-->8.8-->9.0. Plan * Admit to medical floor * switch to D5W at 50 mL per hour - secondary to hypernatremia and hypoglycemia. We will want to stop this as soon as possible because she has developed some rales in her lungs, but at this time preventing hypoglycemia is paramount. Also, increased oral intake will help both conditions. * Full liquid diet and advance as tolerated * Stool for occult blood. * H/H q4 hours until stable. * vitamin K 2.5 mg orally 2/2 rising INR and dropping Hb. * Follow blood sugars closely * Hemoglobin A1c 4.6. Stop all insulin. Insulin will be dangerous 2/2 renal failure. * consult PT, OT, dietary * Zofran and Phenergan for nausea * Rocephin 1 g every 24 hours x 3 days * Pharmacy to dose Coumadin, INR and daily INR * CBC, CMP, and magnesium in the morning and daily * VTE prophylaxis with Coumadin * CODE STATUS: DNR/DNI * Length of stay 2-3 days.
[2018-12-22] MEDS ORDERED: Warfarin Sliding Scale PO SCH (18:00)
[2018-12-23] MEDS: amLODIPine 5 MG Tab PO SCH (09:03)
[2018-12-23] MEDS: Metoprolol Succinate 50 MG Tab.ER PO SCH (09:03)
[2018-12-23] MEDS: Furosemide 40 MG Tab PO SCH (09:03)
[2018-12-23] MEDS: Allopurinol 100 MG Tab PO SCH (09:04)
--- NOTE | 2018-12-23 09:05 | PCM.DCSUM1 ---
Discharge Summary - Hospital Course HPI Initial Comments: 83-year-old female with history of diabetes, DVT on Coumadin, hypertension, and end-stage renal disease not on dialysis presented to the emergency room after 2 days of vomiting. Patient does have mild to moderate dementia so most of the history was obtained through the emergency room providers notes. Patient's son was available to her. Apparently she has not been feeling well since Sunday night after supper and last night when he arrived after supper around 7 PM she had vomited 4 or 5 times. This morning she apparently also vomited some apple juice when she had a blood sugar of 53. She was then given 1 mg of glucagon and EMS was called. Her blood sugar was 86 when EMS arrived. She has been alert and oriented and she denies any abdominal pain. Abdominal x-ray done in the emergency room was negative. She takes 8 units of Lantus at bedtime. In the emergency room she was given 1 L of normal saline and Zofran. She was continued on normal saline 125 mL per hour. Patient was given Rocephin 1 g IV because of a positive UA with micro-. Patient denies any urinary symptoms. White count is 9.62, hemoglobin of 11.4, platelets 167, sodium 144, potassium of 4.8, chloride 111, carbon dioxide 19, anion gap 18.8, BUN 71, creatinine of 3.8 glucose 114. UA was significant for greater than 100 WBCs per high-powered field. Many bacteria. When patient arrived at the floor her finger stick blood sugar was 38. She was given 1 amp of D50 and her blood sugar did go up to 150. Diagnosis: Stroke: No - Discharge Data Discharge Date: 12/23/18 Discharge Disposition: DC/[facility] to [facility] Condition: Fair - Referral to Home Health Primary Care Physician: Estiven Burnett MD - Patient Summary/Data Consults: Consultations 12/20/18 17:08 Consult to Mail Processing Associate [CONS] Routine OT Evaluation and Treatment [CONS] Routine PT Evaluation and Treatment [CONS] Routine Hospital Course: Patient did well in regards to her primary diagnosis of nausea and vomiting. Unfortunately, her INR continued to increase throughout hospitalization until it reached 5.1. At that point she also had a dropping hemoglobin down to 8.0. Patient was given vitamin K 2.5 mg by mouth. This morning her INR was 1.26. Patient has multiple areas of bruising on her arms and legs, but her stool for occult blood was negative. At time of discharge hemoglobin stabilized at 8.4. She did not receive any blood products. Patient was treated for a UTI. She did grow out Klebsiella pneumoniae and was given 4 days of Rocephin 1 g IV daily. - Patient Instructions Diet: Heart Healthy Diet, Diabetic Diet Activity: As Tolerated Driving: Do Not Drive Other/Special Instructions: Folow up with Dr. Burentt this week to discuss you warfarin and other medical problems. - Discharge Plan *PRESCRIPTION DRUG MONITORING PROGRAM REVIEWED*: No *COPY OF PRESCRIPTION DRUG MONITORING REPORT IN PATIENT JUSTO: No Home Medications: Home Meds Acetaminophen 650 mg PO TID PRN 04/13/17 [History] Allopurinol [Zyloprim] 100 mg PO DAILY 04/13/17 [History] Aspirin [Ecotrin EC] 81 mg PO DAILY 04/13/17 [History] Cranberry 400 mg PO BID 04/13/17 [History] Furosemide [Lasix] 40 mg PO DAILY 04/13/17 [History] Tamoxifen [Nolvadex] 20 mg PO DAILY 06/24/18 [History] Metoprolol Succinate [Toprol XL 50mg] 100 mg PO DAILY tab.er 12/23/18 [Rx] amLODIPine [Norvasc] 5 mg PO DAILY tablet 12/23/18 [Rx] Oxygen Therapy Mode: Room Air Referrals: Estiven Burnett MD [Primary Care Provider] - 12/25/18 9:45 am - Discharge Summary/Plan Comment DC Time >30 min.: Yes Discharge Summary/Plan Comment: Stop Warfarin. Follow up on Sunday with Dr. Burnett. - General Info Date of Service: 12/23/18 Admission Dx/Problem (Free Text: Admission Diagnosis/Problem Admission Diagnosis/Problem UTI, Urinary tract infectious disease Subjective Update: Odilia has no complaints this am. Functional Status: Reports: Pain Controlled - Review of Systems General: Reports: No Symptoms Pulmonary: Reports: No Symptoms Cardiovascular: Reports: No Symptoms Gastrointestinal: Reports: No Symptoms Skin: Reports: Bruising - Patient Data Vitals - Most Recent: Last Vital Signs Temp 98.1 F 12/23/18 03:11 Pulse 64 12/23/18 09:03 Resp 14 12/23/18 03:11 BP 160/113 H 12/23/18 09:03 Pulse Ox 94 L 12/23/18 03:11 Weight - Most Recent: 135 lb 11.2 oz I&O - Last 24 hours: Intake & Output 12/22/18 12/23/18 12/23/18 22:59 06:59 14:59 Intake Total 420 250 Output Total 600 700 Balance -180 -450 Lab Results - Last 24 hrs: Laboratory Results - last 24 hr 12/22/18 12/22/18 12/22/18 Range/Units 06:25 09:00 11:42 WBC (3.98-10.04) K/mm3 RBC (3.98-5.22) M/mm3 Hgb 8.8 L (11.2-15.7) gm/dl Hct 27.8 L (34.1-44.9) % MCV (79.4-94.8) fl MCH (25.6-32.2) pg MCHC (32.2-35.5) g/dl RDW Std Deviation (36.4-46.3) fL Plt Count (182-369) K/mm3 MPV (9.4-12.3) fl Neut % (Auto) (34.0-71.1) % Lymph % (Auto) (19.3-51.7) % [place]assen % (Auto) (4.7-12.5) % Eos % (Auto) (0.7-5.8) Baso % (Auto) (0.1-1.2) % Neut # (Auto) (1.56-6.13) K/mm3 Lymph # (Auto) (1.18-3.74) K/mm3 [place]assen # (Auto) (0.24-0.36) K/mm3 Eos # (Auto) (0.04-0.36) K/mm3 Baso # (Auto) (0.01-0.08) K/mm3 PT (9.7-12.0) SECONDS INR Sodium (136-145) mEq/L Potassium (3.5-5.1) mEq/L Chloride (98-107) mEq/L Carbon Dioxide (21-32) mEq/L Anion Gap (5-15) BUN (7-18) mg/dL Creatinine (0.55-1.02) mg/dL Est Cr Clr Drug Dosing mL/min Estimated GFR (MDRD) (>60) mL/min BUN/Creatinine Ratio (14-18) Glucose (83-115) mg/dL POC Glucose 86 85 (83-110) mg/dL Calcium (8.5-10.1) mg/dL Magnesium (1.8-2.4) mg/dl Total Bilirubin (0.2-1.0) mg/dL AST (15-37) U/L ALT (14-59) U/L Alkaline Phosphatase (46-116) U/L Total Protein (6.4-8.2) g/dl Albumin (3.4-5.0) g/dl Globulin gm/dL Albumin/Globulin Ratio (1-2) 12/22/18 12/22/18 12/22/18 Range/Units 14:50 17:18 21:30 WBC (3.98-10.04) K/mm3 RBC (3.98-5.22) M/mm3 Hgb 9.0 L (11.2-15.7) gm/dl Hct 28.2 L (34.1-44.9) % MCV (79.4-94.8) fl MCH (25.6-32.2) pg MCHC (32.2-35.5) g/dl RDW Std Deviation (36.4-46.3) fL Plt Count (182-369) K/mm3 MPV (9.4-12.3) fl Neut % (Auto) (34.0-71.1) % Lymph % (Auto) (19.3-51.7) % Lassen % (Auto) (4.7-12.5) % Eos % (Auto) (0.7-5.8) Baso % (Auto) (0.1-1.2) % Neut # (Auto) (1.56-6.13) K/mm3 Lymph # (Auto) (1.18-3.74) K/mm3 Lassen # (Auto) (0.24-0.36) K/mm3 Eos # (Auto) (0.04-0.36) K/mm3 Baso # (Auto) (0.01-0.08) K/mm3 PT (9.7-12.0) SECONDS INR Sodium (136-145) mEq/L Potassium (3.5-5.1) mEq/L Chloride (98-107) mEq/L Carbon Dioxide (21-32) mEq/L Anion Gap (5-15) BUN (7-18) mg/dL Creatinine (0.55-1.02) mg/dL Est Cr Clr Drug Dosing mL/min Estimated GFR (MDRD) (>60) mL/min BUN/Creatinine Ratio (14-18) Glucose (83-115) mg/dL POC Glucose 99 101 (83-110) mg/dL Calcium (8.5-10.1) mg/dL Magnesium (1.8-2.4) mg/dl Total Bilirubin (0.2-1.0) mg/dL AST (15-37) U/L ALT (14-59) U/L Alkaline Phosphatase (46-116) U/L Total Protein (6.4-8.2) g/dl Albumin (3.4-5.0) g/dl Globulin gm/dL Albumin/Globulin Ratio (1-2) 12/23/18 12/23/18 12/23/18 Range/Units 05:20 05:20 05:20 WBC 5.75 (3.98-10.04) K/mm3 RBC 2.78 L (3.98-5.22) M/mm3 Hgb 8.4 L (11.2-15.7) gm/dl Hct 26.9 L (34.1-44.9) % MCV 96.8 H (79.4-94.8) fl MCH 30.2 (25.6-32.2) pg MCHC 31.2 L (32.2-35.5) g/dl RDW Std Deviation 49.7 H (36.4-46.3) fL Plt Count 146 L (182-369) K/mm3 MPV 10.2 (9.4-12.3) fl Neut % (Auto) 63.2 (34.0-71.1) % Lymph % (Auto) 20.9 (19.3-51.7) % Lassen % (Auto) 10.8 (4.7-12.5) % Eos % (Auto) 4.0 (0.7-5.8) Baso % (Auto) 0.9 (0.1-1.2) % Neut # (Auto) 3.64 (1.56-6.13) K/mm3 Lymph # (Auto) 1.20 (1.18-3.74) K/mm3 [place]assen # (Auto) 0.62 H (0.24-0.36) K/mm3 Eos # (Auto) 0.23 (0.04-0.36) K/mm3 Baso # (Auto) 0.05 (0.01-0.08) K/mm3 PT 13.6 H D (9.7-12.0) SECONDS INR 1.26 Sodium 143 (136-145) mEq/L Potassium 3.9 (3.5-5.1) mEq/L Chloride 111 H (98-107) mEq/L Carbon Dioxide 20 L (21-32) mEq/L Anion Gap 15.9 H (5-15) BUN 51 H (7-18) mg/dL Creatinine 3.5 H (0.55-1.02) mg/dL Est Cr Clr Drug Dosing 8.87 mL/min Estimated GFR (MDRD) 12 (>60) mL/min BUN/Creatinine Ratio 14.6 (14-18) Glucose 86 (83-115) mg/dL POC Glucose (83-110) mg/dL Calcium 7.6 L (8.5-10.1) mg/dL Magnesium 2.3 (1.8-2.4) mg/dl Total Bilirubin 0.2 (0.2-1.0) mg/dL AST 19 (15-37) U/L ALT 10 L (14-59) U/L Alkaline Phosphatase 42 L (46-116) U/L Total Protein 6.0 L (6.4-8.2) g/dl Albumin 2.4 L (3.4-5.0) g/dl Globulin 3.6 gm/dL Albumin/Globulin Ratio 0.7 L (1-2) GISEL Results - Last 24 hrs: Microbiology 12/22/18 08:45 Stool Occult Blood (GISEL) - Final Stool / Feces 12/20/18 12:30 Urine Culture - Final Urine, Clean Catch Klebsiella Pneumoniae Med Orders - Current: Current Medications Acetaminophen (Tylenol) 650 mg PO Q4H PRN PRN Reason: Pain (Mild 1-3)/fever Allopurinol (Zyloprim) 100 mg PO DAILY [facility] Last Admin: 12/23/18 09:04 Dose: 100 mg Amlodipine Besylate (Norvasc) 5 mg PO DAILY [facility] Last Admin: 12/23/18 09:03 Dose: 5 mg Dextrose/Water (Dextrose 50% In Water) 50 ml IVPUSH ASDIRECTED PRN PRN Reason: Hypoglycemia Last Admin: 12/21/18 06:12 Dose: 25 ml Furosemide (Lasix) 40 mg PO DAILY [facility] Last Admin: 12/23/18 09:03 Dose: 40 mg Hydralazine HCl (Apresoline) 10 mg IVPUSH Q4H PRN PRN Reason: Hypertension Last Admin: 12/20/18 23:47 Dose: 10 mg Ceftriaxone Sodium 1 gm/ (Sodium Chloride) 100 mls @ 200 mls/hr IV Q24H [facility] Last Admin: 12/22/18 12:45 Dose: 200 mls/hr Promethazine HCl 12.5 mg/ (Sodium Chloride) 50.5 mls @ 100 mls/hr IV Q4HR PRN PRN Reason: Nausea Last Admin: 12/21/18 14:51 Dose: 100 mls/hr Metoprolol Succinate (Toprol Xl) 100 mg PO DAILY [facility] Last Admin: 12/23/18 09:03 Dose: 100 mg Metoprolol Tartrate (Lopressor) 5 mg IVPUSH Q1H PRN PRN Reason: Tachycardia Last Admin: 12/21/18 04:14 Dose: 5 mg Ondansetron HCl (Zofran Odt) 4 mg PO Q4H PRN PRN Reason: nausea, able to take PO Ondansetron HCl (Zofran) 4 mg IV Q4H PRN PRN Reason: Nausea/Vomiting Last Admin: 12/21/18 11:57 Dose: 4 mg Sodium Chloride (Saline Flush) 10 ml FLUSH ASDIRECTED PRN PRN Reason: Keep Vein Open Warfarin Sodium (Pharmacy To Dose - Warfarin) 1 dose .XX ASDIRECTED PRN PRN Reason: RX TO DOSE WARFARIN Discontinued Medications Amlodipine Besylate (Norvasc) 5 mg PO DAILY [facility] Amlodipine Besylate (Norvasc) 5 mg PO BEDTIME [facility] Last Admin: 12/20/18 23:13 Dose: Not Given Aspirin (Halfprin) 81 mg PO DAILY [facility] Last Admin: 12/22/18 10:20 Dose: Not Given Sodium Chloride (Normal Saline) 1,000 mls @ 999 mls/hr IV ASDIRECTED [facility] Last Admin: 12/20/18 10:29 Dose: 999 mls/hr Sodium Chloride (Normal Saline) 1,000 mls @ 999 mls/hr IV ONETIME ONE Stop: 12/20/18 13:44 Last Admin: 12/20/18 13:33 Dose: 999 mls/hr Ceftriaxone Sodium 1 gm/ (Sodium Chloride) 100 mls @ 200 mls/hr IV Q24H [facility] Last Admin: 12/20/18 13:33 Dose: 200 mls/hr Sodium Chloride (Normal Saline) 1,000 mls @ 125 mls/hr IV ASDIRECTED [facility] Sodium Chloride (Normal Saline) 1,000 mls @ 50 mls/hr IV ASDIRECTED [facility] Last Admin: 12/20/18 22:22 Dose: 50 mls/hr Dextrose/Sodium Chloride (Dextrose 5%-Normal Saline) 1,000 mls @ 50 mls/hr IV ASDIRECTED [facility] Last Admin: 12/20/18 23:15 Dose: 50 mls/hr Magnesium Sulfate 4 gm/ Premix 50 mls @ 12.5 mls/hr IV ONETIME ONE Stop: 12/21/18 12:56 Last Admin: 12/21/18 10:10 Dose: 12.5 mls/hr Dextrose/Water (Dextrose 5% In Water) 1,000 mls @ 50 mls/hr IV ASDIRECTED [facility] Last Admin: 12/22/18 07:29 Dose: 50 mls/hr Influenza Virus Vaccine (Pharmacy To Dose - Influenza Vaccine) 1 each IM ONETIME ONE Stop: 12/23/18 08:53 Insulin Human Lispro (Humalog) 0 unit SUBCUT QIDACANDBED [facility]; Protocol Last Admin: 12/22/18 12:26 Dose: Not Given Metoprolol Succinate (Toprol Xl) 100 mg PO DAILY [facility] Metoprolol Succinate (Toprol Xl) 100 mg PO BEDTIME [facility] Last Admin: 12/20/18 23:14 Dose: Not Given No Warfarin Dose (Needed On 12/20/18) 0 each PO ONETIME ONE Stop: 12/20/18 19:46 Last Admin: 12/20/18 20:59 Dose: Not Given Non-Formulary Medication (Nf Drug) 0 each .XX DAILY [facility] Warfarin No Dose (Needed) 0 each .XX ONETIME ONE Stop: 12/21/18 18:01 Last Admin: 12/21/18 17:05 Dose: Not Given Ondansetron HCl (Zofran) 4 mg IVPUSH ONETIME ONE Stop: 12/20/18 10:17 Last Admin: 12/20/18 10:27 Dose: 4 mg Phytonadione (Aquamephyton) 2.5 mg PO ONETIME ONE Stop: 12/22/18 09:01 Last Admin: 12/22/18 09:17 Dose: 2.5 mg Tamoxifen Citrate (Nolvadex) 20 mg PO DAILY [facility] Last Admin: 12/21/18 08:55 Dose: 20 mg Warfarin Sodium (Pharmacy To Dose - Warfarin) 1 dose .XX ASDIRECTED PRN PRN Reason: RX TO DOSE WARFARIN [facility]farin [facility] S[facility] (Coumadin) 7.[facility] Last Admin: 12/20/18 23:21 Dose: Not Given Warfarin Sodium (Coumadin Sliding Scale) 0 each PO QPM [facility] Stop: 12/21/18 18:01 Last Admin: 12/21/18 17:05 Dose: Not Given Warfarin Sodium (Coumadin Sliding Scale) 0 each PO QPM [facility] Stop: 12/22/18 18:01 Last Admin: 12/22/18 17:12 Dose: Not Given - Exam Quality Assessment: Denies: Supplemental Oxygen General: Reports: Alert, Oriented HEENT: Reports: Pupils Equal, Pupils Reactive, EOMI, Mucous Membr. Moist/[place] Neck: Reports: Supple Lungs: Reports: Clear to Auscultation, Normal Respiratory Effort Cardiovascular: Reports: Regular Rate, Regular Rhythm GI/Abdominal Exam: Normal Bowel Sounds, Soft, Non-Tender, No Distention Extremities: Non-Tender
[2018-12-23] MEDS: cefTRIAXone 1 GM in Sodium Chloride 0.9% 100 ML IV SCH ×2 (11:57→12:24)
== END 2018-12-23 13:35 | DRG 689 ==
LOC: JD.ED 08:44 → JD.MS 13:44
PROVIDERS: ADMIT Family Medicine; ATTEND Family Medicine
DX: N39.0 Urinary tract infection, site not specified (principal); N18.6 End stage renal disease; E87.0 Hyperosmolality and hypernatremia; I12.0 Hypertensive chronic kidney disease with stage 5 chronic kidney disease or end stage renal disease; N18.9 Chronic kidney disease, unspecified; E11.649 Type 2 diabetes mellitus with hypoglycemia without coma; E11.22 Type 2 diabetes mellitus with diabetic chronic kidney disease; F03.90 Unspecified dementia, unspecified severity, without behavioral disturbance, psychotic disturbance, mood disturbance, and anxiety; R79.1 Abnormal coagulation profile; Z66 Do not resuscitate; B96.1 Klebsiella pneumoniae [K. pneumoniae] as the cause of diseases classified elsewhere; E78.00 Pure hypercholesterolemia, unspecified; D64.9 Anemia, unspecified; M79.81 Nontraumatic hematoma of soft tissue; E78.5 Hyperlipidemia, unspecified; M10.9 Gout, unspecified; E86.1 Hypovolemia; Z86.718 Personal history of other venous thrombosis and embolism; Z79.82 Long term (current) use of aspirin; Z79.899 Other long term (current) drug therapy; Z79.01 Long term (current) use of anticoagulants; Z79.4 Long term (current) use of insulin; Z85.3 Personal history of malignant neoplasm of breast
CPT/HCPCS: 36415; 74019; 80053; 81001; 82962 ×2; 85007; 85027; 87086; 87186; 96361; 96374; 96375; 99285; J0696; J2405; J7030; J7040 ×2; 82272; 83036; 83735; 85014; 85018; 85025; 85610; 87088; 87641; 93005; 97110-GP; 97116-GP; 97162-GP; 97165-GO; 99284; A9270-GY; J0360; J2550; J3475; J3490; J7042; J7050; J7060

== ENCOUNTER 2019-03-09 09:48 | Emergency (ER) | payer MEDICARE, BC ==
[2019-03-09] MEDS ORDERED: Sodium Chloride 0.9% 1,000 ML ONE (12:14)
[2019-03-09] MEDS ORDERED: Sodium Chloride 0.9% 1,000 ML IV SCH (12:15)
[2019-03-09] MEDS ORDERED: Sodium Chloride 0.9% 500 ML IV SCH (12:15)
--- NOTE | 2019-03-09 13:13 | EDM.PDOC ---
ED HPI GENERAL MEDICAL PROBLEM - General Chief Complaint: Fever Stated Complaint: FEVER Time Seen by Provider: 03/09/19 09:57 Source of Information: Reports: Patient History Limitations: Reports: No Limitations - History of Present Illness INITIAL COMMENTS - FREE TEXT/NARRATIVE: Patient is an 83-year-old female who presents with her son with complaints of a low-grade fever that started yesterday and generalized malaise. Patient is a resident of [facility] in [place]. She denies any other symptoms such as cough, congestion, nausea, vomiting, or diarrhea. She does state that she just has had no appetite and has been feeling a little more weak since yesterday. Patient has a history of urinary tract infections. Patient did have a flu shot this year. Treatments SE[employer]ONAL [place] [employer]ER: Reports: Acetaminophen - Related Data Allergies Allergy/AdvReac Type Severity Reaction Status Date / Time No Known Allergies Allergy Verified 03/09/19 10:07 Home Meds: Home Meds Acetaminophen 650 mg PO TID PRN 04/13/17 [History] Allopurinol [Zyloprim] 100 mg PO DAILY 04/13/17 [History] Aspirin [Ecotrin EC] 81 mg PO DAILY 04/13/17 [History] Cranberry 400 mg PO BID 04/13/17 [History] Furosemide [Lasix] 40 mg PO DAILY 04/13/17 [History] Tamoxifen [Nolvadex] 20 mg PO DAILY 06/24/18 [History] Metoprolol Succinate [Toprol XL 50mg] 100 mg PO DAILY tab.er 12/23/18 [Rx] amLODIPine [Norvasc] 5 mg PO DAILY tablet 12/23/18 [Rx] Insulin Glarg,Human.Rec.Analog [Lantus Solostar] 3 units SUBCUT QPM 03/09/19 [ History] Oseltamivir [Tamiflu] 75 mg PO BID #9 cap 03/09/19 [Rx] Warfarin Sodium [Jantoven] 2.5 mg PO SUTUWETHSA 03/09/19 [History] Warfarin Sodium [Jantoven] 3.75 mg PO MOFR 03/09/19 [History] Past Medical History HEENT History: Reports: Other (See Below) Other HEENT History: impacted cerumen Cardiovascular History: Reports: High Cholesterol, Hypertension, Other (See Below) Other Cardiovascular History: DVT, anticoagulant use, chronic embolism and thrombosis of unspecified deep veins of left lower extremity, localized swelling mass and lump trunk, chronic fatique, hyperlipidemia, hypertension Genitourinary History: Reports: Renal Disease, Other (See Below) Other Genitourinary History: chronic kidney disease stage 5, proteinuria, monoclonal gammopathy-9Paraproteinemia) [employer] History: Reports: Musculoskeletal History: Reports: Gout Psychiatric History: Reports: Dementia Other Psychiatric History: unspecified dementia without behavioral disturbance Endocrine/Metabolic History: Reports: Diabetes, Type II Other Endocrine/Metabolic History: [facility] insulin use Oncologic (Cancer) History: Reports: Breast Other Oncologic History: 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 Social & Family History - Family History Family Medical History: Noncontributory - Tobacco Use Smoking Status *Q: Former Smoker Used Tobacco, but Quit: Yes Month/Year Tobacco Last Used: smoked for about 20 years - Caffeine Use Caffeine Use: Reports: Coffee Other Caffeine Use: 1-2 cups a day - Recreational Drug Use Recreational Drug Use: No ED ROS GENERAL - Review of Systems Review Of Systems: See Below Constitutional: Reports: Fever, Malaise, Weakness, Decreased Appetite HEENT: Reports: No Symptoms. Denies: Ear Pain, Rhinitis Respiratory: Reports: No Symptoms. Denies: Shortness of Breath, Wheezing, Cough Cardiovascular: Reports: No Symptoms Endocrine: Reports: No Symptoms GI/Abdominal: Reports: No Symptoms. Denies: Abdominal Pain, Diarrhea, Nausea, Vomiting : Reports: No Symptoms Musculoskeletal: Reports: No Symptoms Skin: Reports: No Symptoms Neurological: Reports: No Symptoms Psychiatric: Reports: No Symptoms Hematologic/Lymphatic: Reports: No Symptoms Immunologic: Reports: No Symptoms ED EXAM, GENERAL - Physical Exam Exam: See Below Exam Limited By: No Limitations General Appearance: Alert, WD/WN, No Apparent Distress Ears: Normal External Exam, Normal TMs Nose: Normal Inspection, Normal Mucosa Throat/Mouth: Normal Inspection, Normal Oropharynx, Normal Voice, No Airway Compromise Head: Atraumatic, Normocephalic Neck: Normal Inspection, Supple, Non-Tender Respiratory/Chest: No Respiratory Distress, Lungs Clear, Normal Breath Sounds, No Accessory Muscle Use, Chest Non-Tender Cardiovascular: Normal Peripheral Pulses, Regular Rate, Rhythm, No Edema, No Murmur GI/Abdominal: Normal Bowel Sounds, Soft, Non-Tender Extremities: No Pedal Edema Neurological: Alert, Oriented, Normal Cognition Psychiatric: Normal Affect, Normal Mood Skin Exam: Warm, Dry, Intact, No Rash, Pallor Lymphatic: No Adenopathy Course - Vital Signs Last Recorded V/S: Last Vital Signs Temp 98.7 F 03/09/19 10:01 Pulse 80 03/09/19 10:01 Resp 16 03/09/19 10:01 BP 144/59 H 03/09/19 10:01 Pulse Ox 97 03/09/19 10:01 - Orders/Labs/Meds Orders: Active Orders 24 hr Category Date Time Status Chest 2V [CR] Stat Exams 03/09/19 10:36 Taken Sodium Chloride 0.9% [Normal Saline] 1,000 ml Med 03/09/19 12:15 Active IV ASDIRECTED Medication Orders Sodium Chloride (Normal Saline) 1,000 mls @ 999 mls/hr IV ASDIRECTED KAITLYN Last Admin: 03/09/19 12:17 Dose: 999 mls/hr Labs: Laboratory Tests 03/09/19 03/09/19 03/09/19 Range/Units 10:05 10:05 10:05 WBC 7.85 (3.98-10.04) K/mm3 RBC 2.94 L (3.98-5.22) M/mm3 Hgb 8.8 L (11.2-15.7) gm/dl Hct 27.8 L (34.1-44.9) % MCV 94.6 (79.4-94.8) fl MCH 29.9 (25.6-32.2) pg MCHC 31.7 L (32.2-35.5) g/dl RDW Std Deviation 48.5 H (36.4-46.3) fL Plt Count 155 L (182-369) K/mm3 MPV 10.4 (9.4-12.3) fl Neut % (Auto) 85.0 H (34.0-71.1) % Lymph % (Auto) 6.5 L (19.3-51.7) % Ford % (Auto) 7.6 (4.7-12.5) % Eos % (Auto) 0.1 L (0.7-5.8) Baso % (Auto) 0.5 (0.1-1.2) % Neut # (Auto) 6.67 H (1.56-6.13) K/mm3 Lymph # (Auto) 0.51 L (1.18-3.74) K/mm3 Ford # (Auto) 0.60 H (0.24-0.36) K/mm3 Eos # (Auto) 0.01 L (0.04-0.36) K/mm3 Baso # (Auto) 0.04 (0.01-0.08) K/mm3 Manual Slide Review Abnormal smear PT 25.8 H D (9.7-12.0) SECONDS INR 2.49 Sodium 136 (136-145) mEq/L Potassium 4.3 (3.5-5.1) mEq/L Chloride 104 (98-107) mEq/L Carbon Dioxide 19 L (21-32) mEq/L Anion Gap 17.3 H (5-15) BUN 60 H (7-18) mg/dL Creatinine 4.2 H (0.55-1.02) mg/dL Est Cr Clr Drug Dosing 7.39 mL/min Estimated GFR (MDRD) 10 (>60) mL/min BUN/Creatinine Ratio 14.3 (14-18) Glucose 136 H (83-115) mg/dL Calcium 7.8 L (8.5-10.1) mg/dL Total Bilirubin 0.4 (0.2-1.0) mg/dL AST 27 (15-37) U/L ALT 19 (14-59) U/L Alkaline Phosphatase 50 (46-116) U/L Total Protein 6.7 (6.4-8.2) g/dl Albumin 2.6 L (3.4-5.0) g/dl Globulin 4.1 gm/dL Albumin/Globulin Ratio 0.6 L (1-2) Urine Color (Yellow) Urine Appearance (Clear) Urine pH (5.0-8.0) Ur Specific Pharr (1.005-1.030) Urine Protein (Negative) Urine Glucose (UA) (Negative) Urine Ketones (Negative) Urine Occult Blood (Negative) Urine Nitrite (Negative) Urine Bilirubin (Negative) Urine Urobilinogen (0.2-1.0) Ur Leukocyte Esterase (Negative) Urine RBC (0-5) /hpf Urine WBC (0-5) /hpf Ur Squamous Epith Cells (0-5) /hpf Amorphous Sediment (NOT SEEN) /hpf Urine Bacteria (FEW) /hpf Hyaline Casts (0-5) /lpf Fine Granular Casts (0-5) /lpf Urine Mucus (FEW) /hpf /15/ Range/Units 10:30 WBC (3.98-10.04) K/mm3 RBC (3.98-5.22) M/mm3 Hgb (11.2-15.7) gm/dl Hct (34.1-44.9) % MCV (79.4-94.8) fl MCH (25.6-32.2) pg MCHC (32.2-35.5) g/dl RDW Std Deviation (36.4-46.3) fL Plt Count (182-369) K/mm3 MPV (9.4-12.3) fl Neut % (Auto) (34.0-71.1) % Lymph % (Auto) (19.3-51.7) % Ford % (Auto) (4.7-12.5) % Eos % (Auto) (0.7-5.8) Baso % (Auto) (0.1-1.2) % Neut # (Auto) (1.56-6.13) K/mm3 Lymph # (Auto) (1.18-3.74) K/mm3 Ford # (Auto) (0.24-0.36) K/mm3 Eos # (Auto) (0.04-0.36) K/mm3 Baso # (Auto) (0.01-0.08) K/mm3 Manual Slide Review PT (9.7-12.0) SECONDS INR Sodium (136-145) mEq/L Potassium (3.5-5.1) mEq/L Chloride (98-107) mEq/L Carbon Dioxide (21-32) mEq/L Anion Gap (5-15) BUN (7-18) mg/dL Creatinine (0.55-1.02) mg/dL Est Cr Clr Drug Dosing mL/min Estimated GFR (MDRD) (>60) mL/min BUN/Creatinine Ratio (14-18) Glucose (83-115) mg/dL Calcium (8.5-10.1) mg/dL Total Bilirubin (0.2-1.0) mg/dL AST (15-37) U/L ALT (14-59) U/L Alkaline Phosphatase (46-116) U/L Total Protein (6.4-8.2) g/dl Albumin (3.4-5.0) g/dl Globulin gm/dL Albumin/Globulin Ratio (1-2) Urine Color Yellow (Yellow) Urine Appearance Clear (Clear) Urine pH 5.5 (5.0-8.0) Ur Specific Pharr > or = 1.030 (1.005-1.030) Urine Protein 3+ H (Negative) Urine Glucose (UA) Trace H (Negative) Urine Ketones 1+ H (Negative) Urine Occult Blood 2+ H (Negative) Urine Nitrite Negative (Negative) Urine Bilirubin Negative (Negative) Urine Urobilinogen 0.2 (0.2-1.0) Ur Leukocyte Esterase Negative (Negative) Urine RBC 5-10 H (0-5) /hpf Urine WBC 0-5 (0-5) /hpf Ur Squamous Epith Cells 0-5 (0-5) /hpf Amorphous Sediment Moderate H (NOT SEEN) /hpf Urine Bacteria Rare (FEW) /hpf Hyaline Casts 0-5 (0-5) /lpf Fine Granular Casts 0-5 (0-5) /lpf Urine Mucus Few (FEW) /hpf Meds: Medications Generic Name Dose Route Start Last Admin Trade Name Freq PRN Reason Stop Dose Admin Sodium Chloride 1,000 mls @ 999 mls/hr 03/09/19 12:15 03/09/19 12:17 Normal Saline IV 999 mls/hr ASDIRECTED KAITLYN Administration Discontinued Medications Generic Name Dose Route Start Last Admin Trade Name Freq PRN Reason Stop Dose Admin Sodium Chloride 500 mls @ 999 mls/hr 03/09/19 12:15 Normal Saline IV ASDIRECTED KAITLYN Sodium Chloride Confirm 03/09/19 12:14 03/09/19 12:17 Normal Saline Administered 03/09/19 12:15 Not Given Dose 1,000 mls @ as directed .ROUTE .STK-MED ONE Oseltamivir Phosphate 75 mg 03/09/19 13:19 03/09/19 13:51 Tamiflu PO 03/09/19 13:20 75 mg ONETIME ONE Administration - Re-Assessments/Exams Free Text/Narrative Re-Assessment/Exam: Patient is an 83-year-old female from [facility]. She presents with complaints of generalized malaise and low-grade fever that started yesterday. She has a history of UTIs. She has no focal complaints. On exam, she has no signs of infection. Her lung sounds are clear. She has no tenderness to her abdomen. There is no erythema to her throat. And her TMs are normal. I will do a generalized workup to include CBC, CMP, urinalysis, PT/ INR, chest x-ray and an influenza screen. 03/09/19 1215 Patient's lab work reveals a hemoglobin of 8.8. Looking back in her history it appears that she has been chronically low in hemoglobin. While this is a low reading it is not in the area that would require transfusion at this time. She does appear mildly dehydrated. Her anion gap is 17.3, creatinine 4.2, BUN 60. Patient does have end-stage renal failure and her creatinine from past visits has been from 3.3-3.8. I will give her a 500 ml bolus of normal saline. There are no signs of infection in her urine. Her chest x-ray shows no evidence of infiltrates. Her influenza screen is still pending 03/09/19 13:19 Patient's influenza was positive for influenza B. I have ordered Tamiflu to be started in the ER and continued at the [facility]. I do not feel that she needs to be admitted at this time as her only symptoms are a low-grade fever and malaise. Her vital signs have been stable. She is oxygenating 90-92% on RA and has had no cough or adventitious breath sounds. She will be discharged back to the [facility] facility. Discharge instructions as noted. Departure - Departure Time of Disposition: 13:41 Disposition: DC/Tfer to SNF 03 Condition: Fair Clinical Impression: Influenza B - Discharge Information *PRESCRIPTION DRUG MONITORING PROGRAM REVIEWED*: No *COPY OF PRESCRIPTION DRUG MONITORING REPORT IN PATIENT JUSTO: No Prescriptions: Oseltamivir [Tamiflu] 75 mg PO BID #9 cap Instructions: Influenza, Adult, [id number] Referrals: Estiven Burnett MD [Primary Care Provider] - Forms: ED Department Discharge Additional Instructions: Odilia presented to the ER today with complaints of low-grade fever and generalized malaise that started yesterday. Her workup did not show any signs of bacterial infection, however she did test positive for influenza B. Her labs did show that she was mildly dehydrated so she received IV fluids while in the ER. Her hemoglobin was also low at 8.8 so we do recommend that this be checked by her primary care provider in the near future. She has been started on Tamiflu 75 mg twice daily for 5 days. She did have her first dose in the ER today. We recommend that she be monitored closely for worsening symptoms and encourage fluid intake. She may continue to use Tylenol as ordered for her fever or discomfort. If she experiences any worsening symptoms, she should return to the emergency department. Sepsis Event Note - Evaluation Sepsis Screening Result: No Definite Risk - Focused Exam Vital Signs: Vital Signs Temp Pulse Resp BP Pulse Ox 03/09/19 10:01 98.7 F 80 16 144/59 H 97 Date Exam was Performed: 03/09/19 Time Exam was Performed: 13:53 - My Orders Last 24 Hours: My Active Orders 03/09/19 10:36 Chest 2V [CR] Stat 03/09/19 12:15 Sodium Chloride 0.9% [Normal Saline] 1,000 ml IV ASDIRECTED - Assessment/Plan Last 24 Hours: My Active Orders 03/09/19 10:36 Chest 2V [CR] Stat 03/09/19 12:15 Sodium Chloride 0.9% [Normal Saline] 1,000 ml IV ASDIRECTED
[2019-03-09] MEDS ORDERED: Oseltamivir 75 MG Cap PO ONE (13:19)
--- NOTE | 2019-03-10 10:43 | CR ---
Chest: Two views of the chest were obtained. Comparison: Prior chest x-ray of 07/18/10. Heart size is slightly enlarged. Lungs show no acute parenchymal change. Bony structures are grossly intact. Surgical clips are noted from prior cholecystectomy. Minimal parenchymal scarring/fibrosis is seen within the left lung base. Impression: 1. Heart is mildly enlarged. 2. Nothing acute is definitely appreciated on two-view chest x-ray. Diagnostic code #2 This report was dictated in [place] Standard Time
== END 2019-03-09 14:34 ==
LOC: JD.ED 09:48
DX: J10.1 Influenza due to other identified influenza virus with other respiratory manifestations (principal); I12.0 Hypertensive chronic kidney disease with stage 5 chronic kidney disease or end stage renal disease; E11.22 Type 2 diabetes mellitus with diabetic chronic kidney disease; N18.5 Chronic kidney disease, stage 5; Z86.718 Personal history of other venous thrombosis and embolism; E78.00 Pure hypercholesterolemia, unspecified; M10.9 Gout, unspecified; Z87.891 Personal history of nicotine dependence; Z79.82 Long term (current) use of aspirin; Z79.899 Other long term (current) drug therapy; Z79.4 Long term (current) use of insulin
CPT/HCPCS: 36415; 71046; 80053; 81001; 85025; 85610; 87804; 96360; 99284; A9270; J7030; 99283

== ENCOUNTER 2019-03-13 00:43 | Inpatient (IN) | payer MEDICARE, BC ==
--- NOTE | 2019-03-13 01:11 | EDM.PDOC ---
ED HPI GENERAL MEDICAL PROBLEM - General Chief Complaint: Respiratory Problem Stated Complaint: [facility] Time Seen by Provider: 03/13/19 00:49 Source of Information: Reports: Patient, Family (Son) History Limitations: Reports: No Limitations - History of Present Illness INITIAL COMMENTS - FREE TEXT/NARRATIVE: Mrs. Upton is a pleasantly demented 83-year-old woman, a resident of [facility], who, according to medical records, was seen in this ED this past 03/09/2019, after developing a low-grade fever, generalized malaise, decreased appetite, and increased weakness on 03/08/2019. She denied at that time a history of cough, congestion, nausea, vomiting, or diarrhea. A CBC, CMP, and urinalysis were unremarkable, however, her influenza swab returned positive for influenza B. She was prescribed Tamiflu and returned to the shelter. She has now returned to the ED via EMS after the shelter staff found her to be hypoxemic with an oxygen saturation in the 60s. It is unclear if they or EMS placed her on a nonrebreather. EMS found her to be in atrial fibrillation. Reviewing our prior medical records, as well as those sent from the shelter , we see no record of a prior history of atrial fibrillation, and the only ECG that has been performed at this facility, on 12/22/2018, found her to be in a normal sinus rhythm. The patient is on Coumadin and metoprolol, but she has a history of a DVT and hypertension. Here in the ED, the patient was found to have a SpO2 of 65% on room air, 84% on 5L per NC. The patient denies feeling dyspneic, and has no other complaints, including chills, body aches, headache, or nausea. She appears to be comfortable. The patient's PCP is Dr. Estiven Burnett. She did receive an influenza vaccine this season. - Related Data Allergies Allergy/AdvReac Type Severity Reaction Status Date / Time No Known Allergies Allergy Verified 03/09/19 10:07 Home Meds: Home Meds Acetaminophen 650 mg PO TID PRN 04/13/17 [History] Allopurinol [Zyloprim] 100 mg PO DAILY 04/13/17 [History] Aspirin [Ecotrin EC] 81 mg PO DAILY 04/13/17 [History] Cranberry 400 mg PO BID 04/13/17 [History] Furosemide [Lasix] 40 mg PO DAILY 04/13/17 [History] Tamoxifen [Nolvadex] 20 mg PO DAILY 06/24/18 [History] Metoprolol Succinate [Toprol XL 50mg] 100 mg PO DAILY tab.er 12/23/18 [Rx] amLODIPine [Norvasc] 5 mg PO DAILY tablet 12/23/18 [Rx] Insulin Glarg,Human.Rec.Analog [Lantus Solostar] 3 units SUBCUT QPM 03/09/19 [ History] Oseltamivir [Tamiflu] 75 mg PO BID #9 cap 03/09/19 [Rx] Warfarin Sodium [Jantoven] 2.5 mg PO SUTUWETHSA 03/09/19 [History] Warfarin Sodium [Jantoven] 3.75 mg PO MOFR 03/09/19 [History] Ondansetron [Zofran ODT] 4 mg PO Q6H PRN 03/13/19 [History] Past Medical History Cardiovascular History: Reports: Blood Clots/VTE/DVT, High Cholesterol, Hypertension Genitourinary History: Reports: Chronic Renal Insuffiency [employer]PER[employer]OR History: Reports: Musculoskeletal History: Reports: Gout Neurological History: Reports: Other (See Below) (Dementia) Endocrine/Metabolic History: Reports: Diabetes, Type II Oncologic (Cancer) History: Reports: Breast (left, s/p lumpectomy) - Infectious Disease History Infectious Disease History: Reports: Measles, Mumps - Past Surgical History GI Surgical History: Reports: Cholecystectomy Oncologic Surgical History: Reports: Lumpectomy (left) Social & Family History - Family History Family Medical History: Noncontributory - Tobacco Use Smoking Status *Q: Former Smoker Years of Tobacco use: 20 Month/Year Tobacco Last Used: Quit around 1969 - Caffeine Use Caffeine Use: Reports: None Other Caffeine Use: 1-2 cups a day - Alcohol Use Alcohol Use History: No - Recreational Drug Use Recreational Drug Use: No - Living Situation & Occupation Living situation: Reports: , Extended Care Facility ([facility]) Occupation: Retired ED ROS GENERAL - Review of Systems Review Of Systems: Comprehensive ROS is negative, except as noted in HPI. ED EXAM, GENERAL - Physical Exam Exam: See Below Exam Limited By: No Limitations General Appearance: Alert, No Apparent Distress, Thin Eye Exam: Bilateral Eye: EOMI, Normal Inspection Ears: Normal External Exam, Hearing Grossly Normal Nose: Normal Inspection Throat/Mouth: Normal Inspection, Normal Lips, No Airway Compromise Head: Atraumatic, Normocephalic Neck: Normal Inspection, Full Range of Motion Respiratory/Chest: No Respiratory Distress, Lungs Clear, Normal Breath Sounds, No Accessory Muscle Use. No: Decreased Breath Sounds, Crackles, Rhonchi, Wheezing, Stridor, Prolonged Expiration Cardiovascular: Normal Peripheral Pulses, No Edema, No Gallop, No JVD, No Murmur , No Rub, Irregularly Irregular Peripheral Pulses: 3+: Radial (L), Radial (R) GI/Abdominal: Normal Bowel Sounds, Soft, Non-Tender, No Organomegaly, No Distention, No Abnormal Bruit, No Mass (Female) Exam: Deferred Rectal (Female) Exam: Deferred Back Exam: Normal Inspection, Full Range of Motion, NT Extremities: Normal Inspection, Normal Range of Motion, No Pedal Edema, Normal Capillary Refill Neurological: Alert, No Motor/Sensory Deficits Psychiatric: Normal Affect Skin Exam: Warm, Dry, Intact, Normal Color, No Rash EKG INTERPRETATION EKG Date: 03/13/19 Time: 01:22 Rhythm: A-Fib Rate (Beats/Min): 96 [place]: LAD-Left [place] Deviation P-Wave: Absent QRS: Other (Late transition) ST-T: Depressed (1mm, V3-V6, but with no T-wave inversions) QT: Normal Comparison: Change From Previous EKG (A-fib, ST depressions, LAd new since 2018) Course - Vital Signs Last Recorded V/S: Last Vital Signs Temp 37.2 C 03/13/19 00:51 Pulse 87 03/13/19 00:51 Resp 31 H 03/13/19 00:51 BP 125/55 L 03/13/19 00:51 Pulse Ox 87 L 03/13/19 01:19 - Orders/Labs/Meds Orders: Active Orders 24 hr Category Date Time Status Admission Status [Patient Status] [ADT] Routine ADT 03/13/19 03:58 Ordered EKG Documentation Completion [RC] STAT Care 03/13/19 01:09 Active Chest 2V [CR] Stat Exams 03/13/19 01:11 Taken BLOOD GAS ARTERIAL [BG] Timed Lab 03/13/19 04:45 Ordered CULTURE BLOOD [BC] Stat Lab 03/13/19 01:30 Received CULTURE BLOOD [BC] Stat Lab 03/13/19 01:43 Received Levofloxacin/Dextrose 5%-Water [Levaquin in D5W 750 MG/ Med 03/13/19 03:22 Active 150 ML] 750 mg Premix Bag 1 bag IV ONETIME Sodium Chloride 0.9% [Normal Saline] 1,000 ml Med 03/13/19 03:30 Active IV ASDIRECTED BiPAP [RESPCARE] Routine Oth 03/13/19 03:24 Active Blood Culture x2 Reflex Set [OM.PC] Stat Oth 03/13/19 01:15 Ordered Medication Orders Levofloxacin/Dextrose 750 mg/ (Premix) 150 mls @ 100 mls/hr IV ONETIME STA Stop: 03/13/19 04:51 Last Admin: 03/13/19 03:35 Dose: 100 mls/hr Sodium Chloride (Normal Saline) 1,000 mls @ 150 mls/hr IV ASDIRECTED KAITLYN Last Admin: 03/13/19 03:35 Dose: 150 mls/hr Labs: Laboratory Tests 03/13/19 03/13/19 03/13/19 Range/Units 01:05 01:30 01:30 WBC 10.08 H (3.98-10.04) K/mm3 RBC 2.92 L (3.98-5.22) M/mm3 Hgb 8.8 L (11.2-15.7) gm/dl Hct 27.2 L (34.1-44.9) % MCV 93.2 (79.4-94.8) fl MCH 30.1 (25.6-32.2) pg MCHC 32.4 (32.2-35.5) g/dl RDW Std Deviation 49.0 H (36.4-46.3) fL Plt Count 215 (182-369) K/mm3 MPV 10.0 (9.4-12.3) fl Neutrophils % (Manual) 85 H (40-60) % Band Neutrophils % 5 (0-10) % Lymphocytes % (Manual) 7 L (20-40) % Atypical Lymphs % 0 % Monocytes % (Manual) 3 (2-10) % Eosinophils % (Manual) 0 L (0.7-5.8) % Basophils % (Manual) 0 L (0.1-1.2) Platelet Estimate Adequate Plt Morphology Comment Normal Polychromasia 1+ slight Anisocytosis 1+ slight Ovalocytes 1+ slight RBC Morph Comment Not Reportable PT (9.7-12.0) SECONDS INR Puncture Site Rt radial ABG pH 7.20 L (7.35-7.45) ABG pCO2 38.1 (35.0-45.0) mmHg ABG pO2 51.0 L (80.0-100.0) mmHg ABG HCO3 14.3 L (22.0-26.0) meq/L ABG O2 Saturation 75.5 L (96.0-97.0) % ABG Base Excess -12.4 L (-2-2.0) A-a Gradient 188 mmHg O2 Delivery Device Nasal cannula Oxygen Flow Rate 5.0 FiO2 40.00 (21.00-100.00) % Sodium 134 L (136-145) mEq/L Potassium 4.8 (3.5-5.1) mEq/L Chloride 102 (98-107) mEq/L Carbon Dioxide 16 L (21-32) mEq/L Anion Gap 20.8 H (5-15) BUN 91 H D (7-18) mg/dL Creatinine 6.8 H D (0.55-1.02) mg/dL Est Cr Clr Drug Dosing 4.56 mL/min Estimated GFR (MDRD) 6 (>60) mL/min BUN/Creatinine Ratio 13.4 L (14-18) Glucose 108 (83-115) mg/dL Lactic Acid (0.4-2.0) mmol/L Calcium 7.5 L (8.5-10.1) mg/dL Magnesium 2.1 (1.8-2.4) mg/dl Total Bilirubin 0.3 (0.2-1.0) mg/dL AST 35 (15-37) U/L ALT 25 (14-59) U/L Alkaline Phosphatase 62 (46-116) U/L Troponin I 0.019 (0.00-0.056) ng/mL Total Protein 6.7 (6.4-8.2) g/dl Albumin 2.5 L (3.4-5.0) g/dl Globulin 4.2 gm/dL Albumin/Globulin Ratio 0.6 L (1-2) Urine Color (Yellow) Urine Appearance (Clear) Urine pH (5.0-8.0) Ur Specific Ruffin (1.005-1.030) Urine Protein (Negative) Urine Glucose (UA) (Negative) Urine Ketones (Negative) Urine Occult Blood (Negative) Urine Nitrite (Negative) Urine Bilirubin (Negative) Urine Urobilinogen (0.2-1.0) Ur Leukocyte Esterase (Negative) Urine RBC (0-5) /hpf Urine WBC (0-5) /hpf Ur Squamous Epith Cells (0-5) /hpf Ur Transition Epith Cell (0-5) Ur Renal Epithelial Cell (0-5) /hpf Amorphous Sediment (NOT SEEN) /hpf Urine Bacteria (FEW) /hpf Hyaline Casts (0-5) /lpf Fine Granular Casts (0-5) /lpf Broad Casts (0-5) /hpf Urine Mucus (FEW) /hpf MRSA (PCR) 03/13/19 03/13/19 03/13/19 Range/Units 01:30 01:30 01:53 WBC (3.98-10.04) K/mm3 RBC (3.98-5.22) M/mm3 Hgb (11.2-15.7) gm/dl Hct (34.1-44.9) % MCV (79.4-94.8) fl MCH (25.6-32.2) pg MCHC (32.2-35.5) g/dl RDW Std Deviation (36.4-46.3) fL Plt Count (182-369) K/mm3 MPV (9.4-12.3) fl Neutrophils % (Manual) (40-60) % Band Neutrophils % (0-10) % Lymphocytes % (Manual) (20-40) % Atypical Lymphs % % Monocytes % (Manual) (2-10) % Eosinophils % (Manual) (0.7-5.8) % Basophils % (Manual) (0.1-1.2) Platelet Estimate Plt Morphology Comment Polychromasia Anisocytosis Ovalocytes RBC Morph Comment PT 79.7 H* D (9.7-12.0) SECONDS INR > 8.00 H* Puncture Site ABG pH (7.35-7.45) ABG pCO2 (35.0-45.0) mmHg ABG pO2 (80.0-100.0) mmHg ABG HCO3 (22.0-26.0) meq/L ABG O2 Saturation (96.0-97.0) % ABG Base Excess (-2-2.0) A-a Gradient mmHg O2 Delivery Device Oxygen Flow Rate FiO2 (21.00-100.00) % Sodium (136-145) mEq/L Potassium (3.5-5.1) mEq/L Chloride (98-107) mEq/L Carbon Dioxide (21-32) mEq/L Anion Gap (5-15) BUN (7-18) mg/dL Creatinine (0.55-1.02) mg/dL Est Cr Clr Drug Dosing mL/min Estimated GFR (MDRD) (>60) mL/min BUN/Creatinine Ratio (14-18) Glucose (83-115) mg/dL Lactic Acid 1.1 (0.4-2.0) mmol/L Calcium (8.5-10.1) mg/dL Magnesium (1.8-2.4) mg/dl Total Bilirubin (0.2-1.0) mg/dL AST (15-37) U/L ALT (14-59) U/L Alkaline Phosphatase (46-116) U/L Troponin I (0.00-0.056) ng/mL Total Protein (6.4-8.2) g/dl Albumin (3.4-5.0) g/dl Globulin gm/dL Albumin/Globulin Ratio (1-2) Urine Color Yellow (Yellow) Urine Appearance Cloudy H (Clear) Urine pH 5.5 (5.0-8.0) Ur Specific [place] > or = 1.030 (1.005-1.030) Urine Protein 3+ H (Negative) Urine Glucose (UA) Trace H (Negative) Urine Ketones Trace H (Negative) Urine Occult Blood 2+ H (Negative) Urine Nitrite Negative (Negative) Urine Bilirubin 1+ H (Negative) Urine Urobilinogen 0.2 (0.2-1.0) Ur Leukocyte Esterase Negative (Negative) Urine RBC 5-10 H (0-5) /hpf Urine WBC 0-5 (0-5) /hpf Ur Squamous Epith Cells 0-5 (0-5) /hpf Ur Transition Epith Cell 0-5 (0-5) Ur Renal Epithelial Cell 0-5 (0-5) /hpf Amorphous Sediment Many H (NOT SEEN) /hpf Urine Bacteria Few (FEW) /hpf Hyaline Casts 5-10 H (0-5) /lpf Fine Granular Casts 0-5 (0-5) /lpf Broad Casts 5-10 H (0-5) /hpf Urine Mucus Moderate H (FEW) /hpf MRSA (PCR) 03/13/19 Range/Units 02:24 WBC (3.98-10.04) K/mm3 RBC (3.98-5.22) M/mm3 Hgb (11.2-15.7) gm/dl Hct (34.1-44.9) % MCV (79.4-94.8) fl MCH (25.6-32.2) pg MCHC (32.2-35.5) g/dl RDW Std Deviation (36.4-46.3) fL Plt Count (182-369) K/mm3 MPV (9.4-12.3) fl Neutrophils % (Manual) (40-60) % Band Neutrophils % (0-10) % Lymphocytes % (Manual) (20-40) % Atypical Lymphs % % Monocytes % (Manual) (2-10) % Eosinophils % (Manual) (0.7-5.8) % Basophils % (Manual) (0.1-1.2) Platelet Estimate Plt Morphology Comment Polychromasia Anisocytosis Ovalocytes RBC Morph Comment PT (9.7-12.0) SECONDS INR Puncture Site ABG pH (7.35-7.45) ABG pCO2 (35.0-45.0) mmHg ABG pO2 (80.0-100.0) mmHg ABG HCO3 (22.0-26.0) meq/L ABG O2 Saturation (96.0-97.0) % ABG Base Excess (-2-2.0) A-a Gradient mmHg O2 Delivery Device Oxygen Flow Rate FiO2 (21.00-100.00) % Sodium (136-145) mEq/L Potassium (3.5-5.1) mEq/L Chloride (98-107) mEq/L Carbon Dioxide (21-32) mEq/L Anion Gap (5-15) BUN (7-18) mg/dL Creatinine (0.55-1.02) mg/dL Est Cr Clr Drug Dosing mL/min Estimated GFR (MDRD) (>60) mL/min BUN/Creatinine Ratio (14-18) Glucose (83-115) mg/dL Lactic Acid (0.4-2.0) mmol/L Calcium (8.5-10.1) mg/dL Magnesium (1.8-2.4) mg/dl Total Bilirubin (0.2-1.0) mg/dL AST (15-37) U/L ALT (14-59) U/L Alkaline Phosphatase (46-116) U/L Troponin I (0.00-0.056) ng/mL Total Protein (6.4-8.2) g/dl Albumin (3.4-5.0) g/dl Globulin gm/dL Albumin/Globulin Ratio (1-2) Urine Color (Yellow) Urine Appearance (Clear) Urine pH (5.0-8.0) Ur Specific [place] (1.005-1.030) Urine Protein (Negative) Urine Glucose (UA) (Negative) Urine Ketones (Negative) Urine Occult Blood (Negative) Urine Nitrite (Negative) Urine Bilirubin (Negative) Urine Urobilinogen (0.2-1.0) Ur Leukocyte Esterase (Negative) Urine RBC (0-5) /hpf Urine WBC (0-5) /hpf Ur Squamous Epith Cells (0-5) /hpf Ur Transition Epith Cell (0-5) Ur Renal Epithelial Cell (0-5) /hpf Amorphous Sediment (NOT SEEN) /hpf Urine Bacteria (FEW) /hpf Hyaline Casts (0-5) /lpf Fine Granular Casts (0-5) /lpf Broad Casts (0-5) /hpf Urine Mucus (FEW) /hpf MRSA (PCR) Negative Meds: Medications Generic Name Dose Route Start Last Admin Trade Name Freq PRN Reason Stop Dose Admin Levofloxacin/Dextrose 750 mg/ 150 mls @ 100 mls/hr 03/13/19 03:22 03/13/19 03 :35 Premix IV 03/13/19 04:51 100 mls/hr ONETIME STA Administration Sodium Chloride 1,000 mls @ 150 mls/hr 03/13/19 03:30 03/13/19 03:35 Normal Saline IV 150 mls/hr ASDIRECTED KAITLYN Administration Discontinued Medications Generic Name Dose Route Start Last Admin Trade Name Freq PRN Reason Stop Dose Admin Piperacillin Sod/Tazobactam 100 mls @ 200 mls/hr 03/13/19 02:20 03/13/19 02: 32 Sod 4.5 gm/ Sodium Chloride IV 03/13/19 02:49 200 mls/hr ONETIME ONE Administration - Re-Assessments/Exams Free Text/Narrative Re-Assessment/Exam: 03/13/19 01:12 It is not entirely clear that the patient is actually hypoxemic. While her oxygen saturation is low by the pulse oximeter, she appears to be in atrial fibrillation on the monitor, and if that is the case, poor waveform correlation will lead to an erroneously low reading. I have therefore ordered an ABG to determine her actual oxygen saturation, along with a chest x-ray and ECG. 03/13/19 01:17 The patient's ABG finds her SaO2 to be 75% while on 5 L of O2 per NC, therefore the patient is in fact hypoxemic. Further, the ABG finds that she has a primary metabolic acidosis with superimposed respiratory acidosis. I have therefore ordered a septic workup, including a CBC, CMP, magnesium level, troponin, lactic acid level, urinalysis by quick catheter, and 2 sets of blood cultures. 03/13/19 02:14 2-view chest radiograph reviewed. There is cardiomegaly. There is mild pulmonary vascular congestion. No pleural effusions. There is a right lower lobe infiltrate. No pneumothorax. Formal read per the Radiologist pending. The patient's CBC is remarkable for WBC count slightly elevated at 10.08 but with 5% bandemia, and an H/H depressed at 8.8/27.2. The remainder of her CBC is unremarkable. Her CMP is remarkable for sodium slightly depressed at 134, a bicarbonate depressed at 16 with an anion gap of 20.8, and a BUN/Cr substantially elevated at 91/6.8. The remainder of her CMP is unremarkable. Her magnesium level is within normal limits at 2.1. Her troponin is within normal limits at 0.019. Her lactic acid level is within normal limits at 1.1. The patient's BUN/Cr were 60/4.2 just 4 days ago, 03/09/2019. The patient's metabolic acidosis appears to be due to renal failure, as her lactic acid level is within normal limits. As above, it appears the patient has a right lower lobe pneumonia, and since she lives in a shelter, we have to consider this to be healthcare associated. I will therefore start her on Zosyn, however, I will also order an MRSA screen by PCR, and an INR, since she is on Coumadin. 03/13/19 02:45 The patient's urinalysis is remarkable for 2+ occult blood with 5-10 RBCs, leukocyte esterase negative with 0-5 ABC's, and nitrate negative with few bacteria. Her INR has returned > 8.0. Hortencia FERGUSON tells me that the patient's INR was 8.0 yesterday. I will recommend admission to the hospital. 03/13/19 03:22 The patient's son is not in her room. I was told that he was in the waiting room , but I cannot find him there, either. Case discussed with Dr. Garcia at 03:15. She accepts the patient for admission. She would like us to start the patient on BiPAP. She would like the patient to get a repeat ABG around 4:45, then have the respiratory therapist call her with the results. She would like us to switch the patient to Levaquin, now. The usual dosage of Levaquin for the treatment of pneumonia is 750 mg daily, however, with the patient's renal failure, she will require the same dosage, but much less frequently. I have elected to start the patient on some IV fluid to address her worsening renal failure, however, because of her poor renal function, it is possible that she is anuric, in which case she may develop fluid overload. This is especially concerning given the cardiomegaly and possible mild pulmonary vascular congestion seen on her chest x-ray. Because of her renal failure, a BNP would be of no use. If the patient's oxygen saturation declines while receiving IV fluid, the IV fluid will need to be stopped immediately. 03/13/19 03:36 The patient's son has returned to her room. The patient's situation was discussed with him. He appears to understand, and is agreeable with her being admitted. Departure - Departure Time of Disposition: 03:25 Disposition: Admitted As Inpatient 64 Condition: Fair Clinical Impression: Right lower lobe pneumonia, Hypoxemia, Supratherapeutic INR, Renal failure, Influenza B, Metabolic acidosis, Atrial fibrillation - Discharge Information *PRESCRIPTION DRUG MONITORING PROGRAM REVIEWED*: Not Applicable *COPY OF PRESCRIPTION DRUG MONITORING REPORT IN PATIENT JUSTO: Not Applicable Referrals: Estiven Burnett MD [Physician] - Forms: ED Department Discharge Sepsis Event Note - Evaluation Sepsis Screening Result: No Definite Risk - Focused Exam Vital Signs: Vital Signs Temp Pulse Resp BP Pulse Ox Pulse Ox 03/13/19 01:19 87 L 03/13/19 00:51 37.2 C 87 31 H 125/55 L 65 L Date Exam was Performed: 03/13/19 Time Exam was Performed: 04:01 - My Orders Last 24 Hours: My Active Orders 03/13/19 01:09 EKG Documentation Completion [RC] STAT 03/13/19 01:11 Chest 2V [CR] Stat 03/13/19 01:15 Blood Culture x2 Reflex Set [OM.PC] Stat 03/13/19 01:30 CULTURE BLOOD [BC] Stat 03/13/19 01:43 CULTURE BLOOD [BC] Stat 03/13/19 03:22 Levofloxacin/Dextrose 5%-Water [Levaquin in D5W 750 MG/150 ML] 750 mg Premix Bag 1 bag IV ONETIME 03/13/19 03:24 BiPAP [RESPCARE] Routine 03/13/19 03:30 Sodium Chloride 0.9% [Normal Saline] 1,000 ml IV ASDIRECTED 03/13/19 03:58 Admission Status [Patient Status] [ADT] Routine 03/13/19 04:45 BLOOD GAS ARTERIAL [BG] Timed - Assessment/Plan Last 24 Hours: My Active Orders 03/13/19 01:09 EKG Documentation Completion [RC] STAT 03/13/19 01:11 Chest 2V [CR] Stat 03/13/19 01:15 Blood Culture x2 Reflex Set [OM.PC] Stat 03/13/19 01:30 CULTURE BLOOD [BC] Stat 03/13/19 01:43 CULTURE BLOOD [BC] Stat 03/13/19 03:22 Levofloxacin/Dextrose 5%-Water [Levaquin in D5W 750 MG/150 ML] 750 mg Premix Bag 1 bag IV ONETIME 03/13/19 03:24 BiPAP [RESPCARE] Routine 03/13/19 03:30 Sodium Chloride 0.9% [Normal Saline] 1,000 ml IV ASDIRECTED 03/13/19 03:58 Admission Status [Patient Status] [ADT] Routine 03/13/19 04:45 BLOOD GAS ARTERIAL [BG] Timed
[2019-03-13] MEDS ORDERED: Piperacillin/Tazobactam 4.5 GM in Sodium Chloride 0.9% 100 ML IV ONE (02:20)
[2019-03-13] MEDS ORDERED: Levofloxacin/Dextrose 5%-Water 750 MG in Premix Bag 1 BAG IV STA (03:22)
[2019-03-13] MEDS ORDERED: Sodium Chloride 0.9% 1,000 ML IV SCH (03:30)
--- NOTE | 2019-03-13 07:37 | PCM.HP.2 ---
H&P History of Present Illness - General Date of Service: 03/13/19 Admit Problem/Dx: Admission Diagnosis/Problem Admission Diagnosis/Problem Pneumonia - History of Present Illness Initial Comments - Free Text/Narative: 83-year-old woman, a resident of [facility], who comes in to the ED via EMS after the skilled nursing staff found her to be hypoxemic with an oxygen saturation in the 60s. It is unclear if they or EMS placed her on a nonrebreather. EMS found her to be in atrial fibrillation. Of note she was seen in this ED this past 03/09/2019, after developing a low-grade fever, generalized malaise, decreased appetite, and increased weakness on 03/08/2019. She denied at that time a history of cough, congestion, nausea, vomiting, or diarrhea. A CBC, CMP, and urinalysis were unremarkable, however, her influenza swab returned positive for influenza B. She was prescribed Tamiflu and returned to the skilled nursing. - Related Data Allergies/Adverse Reactions: Allergies Allergy/AdvReac Type Severity Reaction Status Date / Time No Known Allergies Allergy Verified 03/13/19 05:05 Home Medications: Home Meds Acetaminophen 650 mg PO TID PRN 04/13/17 [History] Allopurinol [Zyloprim] 100 mg PO DAILY 04/13/17 [History] Aspirin [Ecotrin EC] 81 mg PO DAILY 04/13/17 [History] Cranberry 400 mg PO BID 04/13/17 [History] Furosemide [Lasix] 40 mg PO DAILY 04/13/17 [History] Tamoxifen [Nolvadex] 20 mg PO DAILY 06/24/18 [History] amLODIPine [Norvasc] 5 mg PO DAILY tablet 12/23/18 [Rx] Insulin Glarg,Human.Rec.Analog [Lantus Solostar] 3 units SUBCUT BEDTIME [History] Oseltamivir [Tamiflu] 75 mg PO BID #9 cap 03/09/19 [Rx] Warfarin Sodium [Jantoven] 2.5 mg PO SUTUWETHSA 03/09/19 [History] Warfarin Sodium [Jantoven] 3.75 mg PO MOFR 03/09/19 [History] Ondansetron [Zofran ODT] 4 mg PO Q6H PRN 03/13/19 [History] Metoprolol Succinate 100 mg PO DAILY 03/14/19 [History] Past Medical History HEENT History: Reports: Other (See Below) Other HEENT History: impacted cerumen Cardiovascular History: Reports: Blood Clots/VTE/DVT, High Cholesterol, Hypertension, Other (See Below) Other Cardiovascular History: edema Genitourinary History: Reports: Chronic Renal Insuffiency, Other (See Below) Other Genitourinary History: CKD stage 5 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: Musculoskeletal History: Reports: Gout Neurological History: Reports: Other (See Below) Other Neuro History: dementia Psychiatric History: Reports: Dementia Other Psychiatric History: unspecified dementia without behavioral disturbance Endocrine/Metabolic History: Reports: Diabetes, Type II Other Endocrine/Metabolic History: half-way insulin use Hematologic History: Reports: Anticoagulation Therapy, Other (See Below) Other Hematologic History: proeinuria, monoclonal gammopathy Oncologic (Cancer) History: Reports: Breast Other Oncologic History: malignant neoplasm of unspecified site of left female breast Dermatologic History: Reports: Other (See Below) Other Dermatologic History: rash and other nonspecific skin eruption-under breasts - Infectious Disease History Infectious Disease History: Reports: Influenza - Past Surgical History GI Surgical History: Reports: Cholecystectomy Oncologic Surgical History: Reports: Lumpectomy Social & Family History - Family History Family Medical History: Noncontributory - Tobacco Use Smoking Status *Q: Unknown Ever Smoked Years of Tobacco use: 20 Month/Year Tobacco Last Used: Quit around 1969 - Caffeine Use Caffeine Use: Reports: Coffee Other Caffeine Use: 1-2 cups a day - Recreational Drug Use Recreational Drug Use: No - Living Situation & Occupation Living situation: Reports: , Extended Care Facility ([facility]) Occupation: Retired H&P Review of Systems - Review of Systems: Review Of Systems: Unable To Obtain Reason Not Obtained: Altered mental status, answers questions inappropriately Exam - Exam Exam: See Below - Vital Signs Vital Signs: Last Vital Signs Temp 97.9 F 03/13/19 04:51 Pulse 87 03/13/19 04:51 Resp 30 H 03/13/19 04:51 BP 112/44 L 03/13/19 04:51 Pulse Ox 92 L 03/13/19 05:35 Weight: 64.637 kg - Exam Quality Assessment: Supplemental Oxygen General: Alert, Cooperative. No: Mild Distress HEENT: Conjunctiva Clear. No: Hearing Intact, Mucosa Moist & [place] Neck: Supple, Trachea Midline Lungs: Decreased Breath Sounds, Crackles (R lung base) Cardiovascular: Regular Rate, Irregular Rhythm. No: Systolic Murmur, Diastolic Murmur, Rubs, Gallop/S3, Gallop/S4 GI/Abdominal Exam: Normal Bowel Sounds, Soft, Non-Tender Extremities: Normal Inspection, Non-Tender - Patient Data Result Diagrams: 03/14/19 05:50 03/14/19 05:50 EKG INTERPRETATION EKG Date: 03/13/19 Rhythm: A-Fib Rate (Beats/Min): 95 [place]: LAD-Left [place] Deviation P-Wave: Absent ST-T: Depressed (1mm in septal and lateral precordial leads (V3-6)) QT: Normal Comparison: Change From Previous EKG Sepsis Event Note - Evaluation Sepsis Screening Result: No Definite Risk - Focused Exam Vital Signs: Vital Signs Temp Temp Pulse Pulse Resp BP BP 03/13/19 05:35 03/13/19 04:51 97.9 F 87 30 H 112/44 L 03/13/19 01:19 03/13/19 00:51 98.9 F 87 31 H 125/55 L Pulse Ox Pulse Ox 03/13/19 05:35 92 L 03/13/19 04:51 93 L 03/13/19 01:19 87 L 03/13/19 00:51 65 L Date Exam was Performed: 03/14/19 Time Exam was Performed: 20:35 - Problem List (1) Right lower lobe pneumonia SNOMED Code(s): 968593004 ICD Code: J18.9 - PNEUMONIA, UNSPECIFIED ORGANISM Status: Acute Priority : High Current Visit: Yes Qualifiers: Pneumonia type: due to unspecified organism Qualified Code(s): J18.9 - Pneumonia, unspecified organism (2) Pneumonia and influenza Status: Acute Current Visit: Yes (3) Influenza B SNOMED Code(s): 34635475 ICD Code: J10.1 - FLU DUE TO OTH IDENT INFLUENZA VIRUS W OTH RESP MANIFEST Status: Acute Priority: High Current Visit: Yes (4) Hypoxemia SNOMED Code(s): 850997269 ICD Code: R09.02 - HYPOXEMIA Status: Acute Current Visit: Yes (5) Respiratory acidosis SNOMED Code(s): 81234535 ICD Code: E87.2 - ACIDOSIS Status: Acute Current Visit: Yes (6) Acute on chronic renal failure SNOMED Code(s): 414091949 ICD Code: N17.9 - ACUTE KIDNEY FAILURE, UNSPECIFIED; N18.9 - CHRONIC KIDNEY DISEASE, UNSPECIFIED Status: Acute Priority: High Current Visit: Yes Qualifiers: Acute renal failure type: unspecified Chronic kidney disease stage: stage 5 , not on chronic dialysis Qualified Code(s): N17.9 - Acute kidney failure, unspecified; N18.5 - Chronic kidney disease, stage 5 (7) High anion gap metabolic acidosis SNOMED Code(s): 06465559 ICD Code: E87.2 - ACIDOSIS Status: Acute Priority: High Current Visit: Yes (8) Atrial fibrillation SNOMED Code(s): 78856427 ICD Code: I48.91 - UNSPECIFIED ATRIAL FIBRILLATION Status: Chronic Priority: High Current Visit: Yes Qualifiers: Atrial fibrillation type: unspecified Qualified Code(s): I48.91 - Unspecified atrial fibrillation (9) Supratherapeutic INR SNOMED Code(s): 183869708 ICD Code: R79.1 - ABNORMAL COAGULATION PROFILE Status: Acute Priority: High Current Visit: Yes (10) Warfarin anticoagulation SNOMED Code(s): 81118144, 930053792, 870625896 ICD Code: Z79.01 - [facility] (CURRENT) USE OF ANTICOAGULANTS Status: Acute Priority: High Current Visit: Yes (11) Hypertension SNOMED Code(s): 44217968 ICD Code: I10 - ESSENTIAL (PRIMARY) HYPERTENSION Status: Chronic Priority : Low Current Visit: No Qualifiers: Hypertension type: unspecified Qualified Code(s): I10 - Essential (primary ) hypertension (12) Diabetes mellitus SNOMED Code(s): 13980876 ICD Code: E11.9 - TYPE 2 DIABETES MELLITUS WITHOUT COMPLICATIONS Status: Chronic Priority: Medium Current Visit: Yes Qualifiers: Diabetes mellitus type: type 2 Diabetes mellitus half-way insulin use: unspecified half-way insulin use status Diabetes mellitus complication status : without complication Qualified Code(s): E11.9 - Type 2 diabetes mellitus without complications (13) Dyslipidemia SNOMED Code(s): 451097817 ICD Code: E78.5 - HYPERLIPIDEMIA, UNSPECIFIED Status: Chronic Priority: Medium Current Visit: No (14) Normocytic normochromic anemia SNOMED Code(s): 65060505 ICD Code: D64.9 - ANEMIA, UNSPECIFIED Status: Acute Priority: High Current Visit: Yes (15) Former smoker, stopped smoking in distant past SNOMED Code(s): 308814722 ICD Code: Z87.891 - PERSONAL HISTORY OF NICOTINE DEPENDENCE Status: Chronic Priority: Low Current Visit: No (16) Polypharmacy SNOMED Code(s): 501301898 ICD Code: Z79.899 - OTHER [facility] (CURRENT) DRUG THERAPY Status: Chronic Priority: Medium Current Visit: Yes (17) residential resident SNOMED Code(s): 162525894 ICD Code: Z59.3 - PROBLEMS RELATED TO LIVING IN RESIDENTIAL INSTITUTION Status: Chronic Priority: Medium Current Visit: Yes Problem List Initiated/Reviewed/Updated: Yes Assessment/Plan Comment:: Right lower lobe pneumonia Influenza B Hypoxemia Respiratory acidosis Seen in ED 4 days ago--> Dx with influenza B--> discharged on Tamiflu same day At that time she complained of flue like illness without cough congestion, nausea, vomiting, or diarrhea Labs were normal Today found to have O2Sat in 60's at skilled nursing Did get flu shot this year PLAN - BiPAP - Repeat ABGs as needed - Order procalcitonin - Trend temperature, fever for her is >99.2 - Oxygen supplementation as needed - RT evaluation and treatment - Scheduled Ipratropium - Scheduled Guaifenesin - Order strep. pneumo, mycoplasma and RSV panel - Continue Tamiflu - Continue Levaquin Acute on chronic renal failure,GFR 7.9 High anion gap metabolic acidosis, AG-28 Normocytic normochromic anemia Gap 2/2 Uremia, no lactic acidosis Could also be starvation ketosis PLAN - Ketones in blood - Monitor urine output - Anemia work up Atrial fibrillation, CHADs VASC-5 Supratherapeutic INR Warfarin anticoagulation Hypoxemic in skilled nursing--> called EMS--> upon arrival EMS stated rhythm was a fib On metoprolol and warfarin HR on admission 87 EKG on admission with rate controlled a fib INR > 8 PLAN - Monitor VS - Vitamin K PO x 1 dose - Daily PT/INR Hypertension BP on admission 122/55 Home management with amlodipine PLAN - Monitor BP - Continue home amlodipine - PRN Hydralazine Diabetes mellitus, HbA1c- 4.6% (12/21/18) HbA1c not reliable due to anemia Home management with insulin long acting, 3u QPM Significantly decreased oral intake in the past week PLAN - Accu-checks TID AC and HS - Hypoglycemia protocol - Hold insulin for now - Low sensitivity sliding scale with meals Dyslipidemia Out of window for statin benefit PLAN - Hold during admission and will not continue at discharge Former smoker, stopped smoking in distant past Years of Tobacco use: 20 Month/Year Tobacco Last Used: Quit around 1969 Polypharmacy 12 prescription medications PLAN - Reconcile according to BEERS criteria residential resident Resident [facility] Former smoker, stopped smoking in distant past Years of Tobacco use: 20 Month/Year Tobacco Last Used: Quit around 1969 PROPHYLAXIS DVT- contraindicated GI- not indicated CODE STATUS: DNR/DNI DISPOSITION: Admitted to medical floor for INR monitorization as well as IV antibiotics. - Mortality Measure Prognosis:: Poor ([place] score 34, predicted rate 81%)
[2019-03-13] MEDS ORDERED: Phytonadione ORAL 2.5mg/2.5ml Soln Simple Syrup U/D PO ONE (07:56)
[2019-03-13] MEDS ORDERED: Ondansetron 4 MG/2 ML SDV IV PRN (07:56)
[2019-03-13] MEDS ORDERED: 50% Dextrose in Water 50 ML Syringe IVPUSH PRN (07:56)
[2019-03-13] MEDS ORDERED: Ondansetron 4 MG Tab.DIS PO PRN (07:56)
[2019-03-13] MEDS: Lactated Ringers 1,000 ML IV SCH (08:44)
[2019-03-13 08:57] LABS: HEMOGLOBIN A1C 5.5 % (4.50-6.20)
--- NOTE | 2019-03-13 09:46 | CR ---
Chest: Two views of the chest were obtained. Comparison: Prior chest x-ray of 03/09/19. Increased density within the right lung base is seen. Findings most likely due to pneumonia. Heart is enlarged. Pulmonary vessels are minimally congested. Slight fluid is seen within the right major fissure. Possible small right sided pleural effusion is also noted. Impression: 1. Findings suspicious for mild CHF with possible right basilar pneumonia. Diagnostic code #3 This report was dictated in [place] Standard Time
[2019-03-13] MEDS: Piperacillin/Tazobactam 4.5 GM in Sodium Chloride 0.9% 100 ML IV SCH (15:29)
[2019-03-13] MEDS: Insulin Lispro 100 Units/ML 3 ML Vial SUBCUT SCH (17:32)
[2019-03-14] MEDS: Piperacillin/Tazobactam 4.5 GM in Sodium Chloride 0.9% 100 ML IV SCH ×2 (02:07→15:12)
[2019-03-14] MEDS: Lactated Ringers 1,000 ML IV SCH (05:44)
[2019-03-14] MEDS: Insulin Lispro 100 Units/ML 3 ML Vial SUBCUT SCH ×2 (05:56→18:38)
[2019-03-14] MEDS ORDERED: Carboxymethylcellulose Sodium 1% Ophth Gel 15 ML Bottle EYEBOTH PRN (10:56)
[2019-03-14] MEDS ORDERED: Heparin Sodium 5,000 Units/ML Vial IVPUSH ONE (11:30)
--- NOTE | 2019-03-14 11:46 | PCM.PN ---
- General Info Date of Service: 03/14/19 Admission Dx/Problem (Free Text): Admission Diagnosis/Problem Admission Diagnosis/Problem Pneumonia Subjective Update: In to see Odilia. She is lying in bed. She reports she feels ok but still has SOB with ambulation. Creatinine has been stable. She has no other complaints. Functional Status: Reports: Pain Controlled, Tolerating Diet, Ambulating, Urinating. Denies: New Symptoms - Review of Systems General: Reports: Weakness, Fatigue, Malaise. Denies: Fever, Chills HEENT: Denies: Headaches, Sore Throat Pulmonary: Denies: Shortness of Breath (none while in bed ), Cough, Sputum, Wheezing Cardiovascular: Reports: Dyspnea on Exertion. Denies: Chest Pain, Palpitations Gastrointestinal: Denies: Abdominal Pain, Constipation, Diarrhea, Nausea, Vomiting Genitourinary: Denies: Pain Musculoskeletal: Reports: No Symptoms Skin: Reports: No Symptoms. Denies: Cyanosis Neurological: Reports: No Symptoms. Denies: Confusion, Difficulty Walking, Gait Disturbance Psychiatric: Reports: No Symptoms - Patient Data Vitals - Most Recent: Last Vital Signs Temp 97.5 F 03/14/19 07:27 Pulse 107 H 03/14/19 07:27 Resp 24 H 03/14/19 07:27 BP 134/55 L 03/14/19 07:27 Pulse Ox 98 03/14/19 07:27 Weight - Most Recent: 141 lb 6.4 oz I&O - Last 24 Hours: Intake & Output 03/13/19 03/14/19 03/14/19 22:59 06:59 14:59 Intake Total 1510 576 Output Total 200 Balance 1310 576 Lab Results Last 24 Hours: Laboratory Results - last 24 hr 03/13/19 03/13/19 03/13/19 Range/Units 08:29 08:29 17:02 WBC (3.98-10.04) K/mm3 RBC (3.98-5.22) M/mm3 Hgb (11.2-15.7) gm/dl Hct (34.1-44.9) % MCV (79.4-94.8) fl MCH (25.6-32.2) pg MCHC (32.2-35.5) g/dl RDW Std Deviation (36.4-46.3) fL Plt Count (182-369) K/mm3 MPV (9.4-12.3) fl Neut % (Auto) (34.0-71.1) % Lymph % (Auto) (19.3-51.7) % [place] % (Auto) (4.7-12.5) % Eos % (Auto) (0.7-5.8) Baso % (Auto) (0.1-1.2) % Neut # (Auto) (1.56-6.13) K/mm3 Lymph # (Auto) (1.18-3.74) K/mm3 [place] # (Auto) (0.24-0.36) K/mm3 Eos # (Auto) (0.04-0.36) K/mm3 Baso # (Auto) (0.01-0.08) K/mm3 Manual Slide Review PT (9.7-12.0) SECONDS INR Sodium (136-145) mEq/L Potassium (3.5-5.1) mEq/L Chloride (98-107) mEq/L Carbon Dioxide (21-32) mEq/L Anion Gap (5-15) BUN (7-18) mg/dL Creatinine (0.55-1.02) mg/dL Est Cr Clr Drug Dosing mL/min Estimated GFR (MDRD) (>60) mL/min BUN/Creatinine Ratio (14-18) Glucose (83-115) mg/dL POC Glucose 128 H (83-110) mg/dL Calcium (8.5-10.1) mg/dL Phosphorus 8.1 H (2.6-4.7) mg/dL Magnesium (1.8-2.4) mg/dl Procalcitonin 1.12 H (<0.10) ng/mL 03/13/19 03/14/19 03/14/19 Range/Units 21:07 05:48 05:50 WBC 9.57 (3.98-10.04) K/mm3 RBC 2.92 L (3.98-5.22) M/mm3 Hgb 8.8 L (11.2-15.7) gm/dl Hct 27.3 L (34.1-44.9) % MCV 93.5 (79.4-94.8) fl MCH 30.1 (25.6-32.2) pg MCHC 32.2 (32.2-35.5) g/dl RDW Std Deviation 49.5 H (36.4-46.3) fL Plt Count 209 (182-369) K/mm3 MPV 9.7 (9.4-12.3) fl Neut % (Auto) 85.6 H (34.0-71.1) % Lymph % (Auto) 5.3 L (19.3-51.7) % Hardin % (Auto) 6.7 (4.7-12.5) % Eos % (Auto) 0.9 (0.7-5.8) Baso % (Auto) 0.2 (0.1-1.2) % Neut # (Auto) 8.19 H (1.56-6.13) K/mm3 Lymph # (Auto) 0.51 L (1.18-3.74) K/mm3 [place]in # (Auto) 0.64 H (0.24-0.36) K/mm3 Eos # (Auto) 0.09 (0.04-0.36) K/mm3 Baso # (Auto) 0.02 (0.01-0.08) K/mm3 Manual Slide Review Abnormal smear PT (9.7-12.0) SECONDS INR Sodium (136-145) mEq/L Potassium (3.5-5.1) mEq/L Chloride (98-107) mEq/L Carbon Dioxide (21-32) mEq/L Anion Gap (5-15) BUN (7-18) mg/dL Creatinine (0.55-1.02) mg/dL Est Cr Clr Drug Dosing mL/min Estimated GFR (MDRD) (>60) mL/min BUN/Creatinine Ratio (14-18) Glucose (83-115) mg/dL POC Glucose 128 H 89 (83-110) mg/dL Calcium (8.5-10.1) mg/dL Phosphorus (2.6-4.7) mg/dL Magnesium (1.8-2.4) mg/dl Procalcitonin (<0.10) ng/mL 03/14/19 03/14/19 Range/Units 05:50 05:50 WBC (3.98-10.04) K/mm3 RBC (3.98-5.22) M/mm3 Hgb (11.2-15.7) gm/dl Hct (34.1-44.9) % MCV (79.4-94.8) fl MCH (25.6-32.2) pg MCHC (32.2-35.5) g/dl RDW Std Deviation (36.4-46.3) fL Plt Count (182-369) K/mm3 MPV (9.4-12.3) fl Neut % (Auto) (34.0-71.1) % Lymph % (Auto) (19.3-51.7) % [place] % (Auto) (4.7-12.5) % Eos % (Auto) (0.7-5.8) Baso % (Auto) (0.1-1.2) % Neut # (Auto) (1.56-6.13) K/mm3 Lymph # (Auto) (1.18-3.74) K/mm3 [place] # (Auto) (0.24-0.36) K/mm3 Eos # (Auto) (0.04-0.36) K/mm3 Baso # (Auto) (0.01-0.08) K/mm3 Manual Slide Review PT 18.9 H D (9.7-12.0) SECONDS INR 1.79 Sodium 135 L (136-145) mEq/L Potassium 4.1 (3.5-5.1) mEq/L Chloride 101 (98-107) mEq/L Carbon Dioxide 16 L (21-32) mEq/L Anion Gap 22.1 H (5-15) BUN 93 H (7-18) mg/dL Creatinine 6.9 H (0.55-1.02) mg/dL Est Cr Clr Drug Dosing 4.50 mL/min Estimated GFR (MDRD) 6 (>60) mL/min BUN/Creatinine Ratio 13.5 L (14-18) Glucose 95 (83-115) mg/dL POC Glucose (83-110) mg/dL Calcium 8.1 L (8.5-10.1) mg/dL Phosphorus 7.0 H (2.6-4.7) mg/dL Magnesium 2.0 (1.8-2.4) mg/dl Procalcitonin (<0.10) ng/mL Marcial Results Last 24 Hours: Microbiology 03/13/19 01:43 Aerobic Blood Culture - Preliminary Blood - Venous NO GROWTH AFTER 1 DAY Anaerobic Blood Culture - Preliminary NO GROWTH AFTER 1 DAY 03/13/19 01:30 Aerobic Blood Culture - Preliminary Blood - Venous - Lab Draw NO GROWTH AFTER 1 DAY Anaerobic Blood Culture - Preliminary NO GROWTH AFTER 1 DAY Med Orders - Current: Current Medications Allopurinol (Zyloprim) 100 mg PO DAILY [facility] Amlodipine Besylate (Norvasc) 5 mg PO DAILY [facility] Artificial Tears (Refresh Liquigel 1%) 0 ml EYEBOTH Q2H PRN PRN Reason: Dry Eyes Dextrose/Water (Dextrose 50% In Water) 50 ml IVPUSH ASDIRECTED PRN PRN Reason: Hypoglycemia Lactated Ringer's (Ringers, Lactated) 1,000 mls @ 50 mls/hr IV ASDIRECTED KAITLYN Last Admin: 03/14/19 05:44 Dose: 50 mls/hr Piperacillin Sod/Tazobactam (Sod 4.5 gm/ Sodium Chloride) 100 mls @ 133.333 mls /hr IV Q12H [facility] Last Admin: 03/14/19 02:07 Dose: 133.333 mls/hr Azithromycin 500 mg/ Sodium (Chloride) 250 mls @ 250 mls/hr IV Q24H [facility] Heparin Sodium/Dextrose (Heparin 25,000 Units In D5w 500 Ml) 25,000 units in 500 mls @ 23.09 mls/hr IV TITRATE [facility]; Protocol Insulin Human Lispro (Humalog) 0 unit SUBCUT BIDAC [facility]; Protocol Last Admin: 03/14/19 05:56 Dose: Not Given Ondansetron HCl (Zofran Odt) 4 mg PO Q6H PRN PRN Reason: nausea, able to take PO Ondansetron HCl (Zofran) 4 mg IV Q6H PRN PRN Reason: Nausea/Vomiting Warfarin Sodium (Pharmacy To Dose - Warfarin) 1 dose PO ASDIRECTED PRN PRN Reason: RX TO DOSE WARFARIN Warfarin Sodium (Coumadin) 2 mg PO QPM [facility] Stop: 03/14/19 18:01 Discontinued Medications Heparin Sodium (Porcine) (Heparin Sodium) 5,000 units IVPUSH .BOLUS ONE Stop: 03/14/19 11:31 Piperacillin Sod/Tazobactam (Sod 4.5 gm/ Sodium Chloride) 100 mls @ 200 mls/hr IV ONETIME ONE Stop: 03/13/19 02:49 Last Admin: 03/13/19 02:32 Dose: 200 mls/hr Levofloxacin/Dextrose 750 mg/ (Premix) 150 mls @ 100 mls/hr IV ONETIME STA Stop: 03/13/19 04:51 Last Admin: 03/13/19 03:35 Dose: 100 mls/hr Sodium Chloride (Normal Saline) 1,000 mls @ 150 mls/hr IV ASDIRECTED KAITLYN Last Admin: 03/13/19 03:35 Dose: 150 mls/hr Phytonadione (Aquamephyton) 1 mg PO ONETIME ONE Stop: 03/13/19 07:57 Last Admin: 03/13/19 08:40 Dose: 1 mg - Exam Quality Assessment: DVT Prophylaxis. No: Supplemental Oxygen General: Alert, Oriented, Cooperative, No Acute Distress HEENT: Pupils Equal, Pupils Reactive, Mucous Membr. Moist/[place] Neck: Supple, Trachea Midline Lungs: Clear to Auscultation, Normal Respiratory Effort, Decreased Breath Sounds. No: Crackles, Rales, Rhonchi, Wheezing Cardiovascular: Irregular Rhythm (a-fib) GI/Abdominal Exam: Normal Bowel Sounds, Soft, Non-Tender, No Distention, No Abnormal Bruit (Female) Exam: Deferred Back Exam: Normal Inspection, Decreased Range of Motion Extremities: Normal Inspection, Normal Range of Motion, Non-Tender, No Pedal Edema, Normal Capillary Refill Peripheral Pulses: 3+: Radial (L), Radial (R), Dorsalis Pedis (L), Dorsalis Pedis (R) Skin: Warm, Dry, Intact Neurological: No New Focal Deficit Psy/Mental Status: Alert, Normal Affect, Normal Mood Sepsis Event Note - Evaluation Sepsis Screening Result: No Definite Risk - Focused Exam Vital Signs: Vital Signs Temp Pulse Resp BP Pulse Ox Pulse Ox 03/14/19 07:27 97.5 F 107 H 24 H 134/55 L 98 03/14/19 06:26 99 03/14/19 05:36 97.3 F 89 20 125/54 L 99 03/14/19 04:00 99 03/14/19 00:23 97 98 03/14/19 00:00 98 Date Exam was Performed: 03/17/19 Time Exam was Performed: 13:35 - Problem List & Annotations (1) Acute on chronic renal failure SNOMED Code(s): 751810068 Code(s): N17.9 - ACUTE KIDNEY FAILURE, UNSPECIFIED; N18.9 - CHRONIC KIDNEY DISEASE, UNSPECIFIED Status: Acute Priority: High Current Visit: Yes Qualifiers: Acute renal failure type: unspecified Chronic kidney disease stage: stage 5 , not on chronic dialysis Qualified Code(s): N17.9 - Acute kidney failure, unspecified; N18.5 - Chronic kidney disease, stage 5 (2) Atrial fibrillation SNOMED Code(s): 05036049 Code(s): I48.91 - UNSPECIFIED ATRIAL FIBRILLATION Status: Chronic Priority: High Current Visit: Yes Qualifiers: Atrial fibrillation type: unspecified Qualified Code(s): I48.91 - Unspecified atrial fibrillation (3) Diabetes mellitus SNOMED Code(s): 55323252 Code(s): E11.9 - TYPE 2 DIABETES MELLITUS WITHOUT COMPLICATIONS Status: Chronic Priority: Medium Current Visit: Yes Qualifiers: Diabetes mellitus type: type 2 Diabetes mellitus intermediate designer insulin use: unspecified intermediate designer insulin use status Diabetes mellitus complication status : without complication Qualified Code(s): E11.9 - Type 2 diabetes mellitus without complications (4) Dyslipidemia SNOMED Code(s): 541743960 Code(s): E78.5 - HYPERLIPIDEMIA, UNSPECIFIED Status: Chronic Priority: Medium Current Visit: No (5) Former smoker, stopped smoking in distant past SNOMED Code(s): 297062377 Code(s): Z87.891 - PERSONAL HISTORY OF NICOTINE DEPENDENCE Status: Chronic Priority: Low Current Visit: No (6) High anion gap metabolic acidosis SNOMED Code(s): 05037762 Code(s): E87.2 - ACIDOSIS Status: Acute Priority: High Current Visit: Yes (7) Hypoxemia SNOMED Code(s): 952633983 Code(s): R09.02 - HYPOXEMIA Status: Acute Current Visit: Yes (8) Influenza B SNOMED Code(s): 36725822 Code(s): J10.1 - FLU DUE TO OTH IDENT INFLUENZA VIRUS W OTH RESP MANIFEST Status: Acute Priority: High Current Visit: Yes (9) Metabolic acidosis SNOMED Code(s): 70954870 Code(s): E87.2 - ACIDOSIS Status: Acute Priority: High Current Visit: Yes (10) Normocytic normochromic anemia SNOMED Code(s): 96966320 Code(s): D64.9 - ANEMIA, UNSPECIFIED Status: Acute Priority: High Current Visit: Yes (11) [facility] resident SNOMED Code(s): 961973548 Code(s): Z59.3 - PROBLEMS RELATED TO LIVING IN RESIDENTIAL INSTITUTION Status: Chronic Priority: Medium Current Visit: Yes (12) Polypharmacy SNOMED Code(s): 363814216 Code(s): Z79.899 - OTHER PENS AND PENCILS DIPPER (CURRENT) DRUG THERAPY Status: Chronic Priority: Medium Current Visit: Yes (13) Right lower lobe pneumonia SNOMED Code(s): 698765747 Code(s): J18.9 - PNEUMONIA, UNSPECIFIED ORGANISM Status: Acute Priority: High Current Visit: Yes Qualifiers: Pneumonia type: due to unspecified organism Qualified Code(s): J18.9 - Pneumonia, unspecified organism (14) Supratherapeutic INR SNOMED Code(s): 354730481 Code(s): R79.1 - ABNORMAL COAGULATION PROFILE Status: Acute Priority: High Current Visit: Yes (15) Warfarin anticoagulation SNOMED Code(s): 71345411, 198599810, 878441801 Code(s): Z79.01 - PENS AND PENCILS DIPPER (CURRENT) USE OF ANTICOAGULANTS Status: Acute Priority: High Current Visit: Yes (16) Hypertension SNOMED Code(s): 81152401 Code(s): I10 - ESSENTIAL (PRIMARY) HYPERTENSION Status: Chronic Priority : Low Current Visit: No Qualifiers: Hypertension type: unspecified Qualified Code(s): I10 - Essential (primary ) hypertension - Problem List Review Problem List Initiated/Reviewed/Updated: Yes - My Orders Last 24 Hours: My Active Orders 03/14/19 10:56 Carboxymethylcellulose Sodium [Refresh Liquigel 1%] 0 ml EYEBOTH Q2H PRN - Plan Plan:: Right lower lobe pneumonia Influenza B Hypoxemia Respiratory acidosis Seen in ED 4 days ago--> Dx with influenza B--> discharged on Tamiflu same day At that time she complained of flue like illness without cough congestion, nausea, vomiting, or diarrhea Labs were normal Today found to have O2Sat in 60's at alf Did get flu shot this year PLAN - BiPAP - Repeat ABGs as needed - Order procalcitonin -> 1.12 - Trend temperature, fever for her is >99.2 - Oxygen supplementation as needed - RT evaluation and treatment - Scheduled Ipratropium - Scheduled Guaifenesin - Order RSV panel - Continue Tamiflu - Continue Levaquin Acute on chronic renal failure,GFR 7.9 High anion gap metabolic acidosis, AG-28 Normocytic normochromic anemia Gap 2/2 Uremia, no lactic acidosis Could also be starvation ketosis PLAN - Ketones in blood - Monitor urine output - Anemia work up Atrial fibrillation, CHADs VASC-5 Supratherapeutic INR Warfarin anticoagulation Hypoxemic in alf--> called EMS--> upon arrival EMS stated rhythm was a fib On metoprolol and warfarin HR on admission 87 EKG on admission with rate controlled a fib INR > 8 PLAN - Monitor VS - Vitamin K PO x 1 dose - Daily PT/INR, aPTT - Resume Warfarin - Bridge with heparin Hypertension, stable BP on admission 122/55 Home management with amlodipine PLAN - Monitor BP - Continue home amlodipine - PRN Hydralazine Diabetes mellitus, HbA1c- 4.6% (12/21/18) HbA1c not reliable due to anemia Home management with insulin long acting, 3u QPM Significantly decreased oral intake in the past week PLAN - Accu-checks TID AC and HS - Hypoglycemia protocol - Hold insulin for now - Low sensitivity sliding scale with meals Dyslipidemia Out of window for statin benefit PLAN - Hold during admission and will not continue at discharge Former smoker, stopped smoking in distant past Years of Tobacco use: 20 Month/Year Tobacco Last Used: Quit around 1970 Polypharmacy 12 prescription medications PLAN - Reconcile according to BEERS criteria [facility] resident Resident [facility] PROPHYLAXIS DVT- warfarin/heparin GI- not indicated CODE STATUS: DNR/DNI DISPOSITION: Admitted to medical floor for INR monitorization as well as IV antibiotics.
[2019-03-14] MEDS: Heparin Sodium/D5W 25,000 UNITS/500 ML BAG IV SCH (12:46)
[2019-03-15] MEDS: Azithromycin 500 MG in Sodium Chloride 0.9% 250 ML IV SCH (02:20)
[2019-03-15] MEDS ORDERED: Acetaminophen 325 MG Tab PO PRN (03:28)
[2019-03-15] MEDS: Piperacillin/Tazobactam 4.5 GM in Sodium Chloride 0.9% 100 ML IV SCH ×2 (03:39→16:57)
[2019-03-15] MEDS: Lactated Ringers 1,000 ML IV SCH (07:40)
[2019-03-15] MEDS: amLODIPine 5 MG Tab PO SCH (09:27)
[2019-03-15] MEDS: Allopurinol 100 MG Tab PO SCH (09:27)
[2019-03-15] MEDS: Insulin Lispro 100 Units/ML 3 ML Vial SUBCUT SCH (09:28)
[2019-03-15] MEDS: Heparin Sodium/D5W 25,000 UNITS/500 ML BAG IV SCH (11:26)
[2019-03-15] MEDS ORDERED: Sodium Chloride 0.9% 250 ML IV SCH (11:45)
--- NOTE | 2019-03-15 12:34 | PCM.PN ---
- General Info Date of Service: 03/15/19 Subjective Update: Feeling better Slept ok Tolerating diet - Patient Data Vitals - Most Recent: Last Vital Signs Temp 97.5 F 03/15/19 09:25 Pulse 105 H 03/15/19 09:25 Resp 24 H 03/15/19 09:25 BP 150/69 H 03/15/19 09:27 Pulse Ox 99 03/15/19 09:25 Weight - Most Recent: 65.408 kg - Exam Physical Findings Comments:: General: Alert, Oriented, Cooperative, No Acute Distress HEENT: Pupils Equal, Pupils Reactive, Mucous Membr. Moist/[place] Neck: Supple, Trachea Midline Lungs: Clear to Auscultation, Normal Respiratory Effort, Decreased Breath Sounds. No: Crackles, Rales, Rhonchi, Wheezing Cardiovascular: Irregular Rhythm (a-fib) GI/Abdominal Exam: Normal Bowel Sounds, Soft, Non-Tender, No Distention, No Abnormal Bruit (Female) Exam: Deferred Back Exam: Normal Inspection, Decreased Range of Motion Extremities: Normal Inspection, Normal Range of Motion, Non-Tender, No Pedal Edema, Normal Capillary Refill Peripheral Pulses: 3+: Radial (L), Radial (R), Dorsalis Pedis (L), Dorsalis Pedis (R) Skin: Warm, Dry, Intact Neurological: No New Focal Deficit Psy/Mental Status: Alert, Normal Affect, Normal Mood Sepsis Event Note - Evaluation Sepsis Screening Result: Severe Sepsis Risk - Focused Exam Vital Signs: Vital Signs Temp Pulse Resp BP Pulse Ox Pulse Ox 03/15/19 09:27 150/69 H 03/15/19 09:25 97.5 F 105 H 24 H 150/69 H 99 03/15/19 08:00 99 03/15/19 06:12 99 03/15/19 04:11 97.7 F 103 H 22 H 119/89 94 L 03/15/19 04:00 94 L 03/15/19 00:41 97.9 F 105 H 18 135/74 94 L Date Exam was Performed: 03/26/19 Time Exam was Performed: 07:21 - Problem List & Annotations (1) Right lower lobe pneumonia SNOMED Code(s): 109707109 Code(s): J18.9 - PNEUMONIA, UNSPECIFIED ORGANISM Status: Acute Priority: High Qualifiers: Pneumonia type: due to unspecified organism Qualified Code(s): J18.9 - Pneumonia, unspecified organism (2) Pneumonia and influenza Status: Acute (3) Influenza B SNOMED Code(s): 95335755 Code(s): J10.1 - FLU DUE TO OTH IDENT INFLUENZA VIRUS W OTH RESP MANIFEST Status: Acute Priority: High (4) Hypoxemia SNOMED Code(s): 683499636 Code(s): R09.02 - HYPOXEMIA Status: Acute (5) Respiratory acidosis SNOMED Code(s): 04088782 Code(s): E87.2 - ACIDOSIS Status: Acute (6) Acute on chronic renal failure SNOMED Code(s): 485019572 Code(s): N17.9 - ACUTE KIDNEY FAILURE, UNSPECIFIED; N18.9 - CHRONIC KIDNEY DISEASE, UNSPECIFIED Status: Acute Priority: High Qualifiers: Acute renal failure type: unspecified Chronic kidney disease stage: stage 5 , not on chronic dialysis Qualified Code(s): N17.9 - Acute kidney failure, unspecified; N18.5 - Chronic kidney disease, stage 5 (7) High anion gap metabolic acidosis SNOMED Code(s): 48956662 Code(s): E87.2 - ACIDOSIS Status: Acute Priority: High (8) Atrial fibrillation SNOMED Code(s): 53451000 Code(s): I48.91 - UNSPECIFIED ATRIAL FIBRILLATION Status: Chronic Priority: High Qualifiers: Atrial fibrillation type: unspecified Qualified Code(s): I48.91 - Unspecified atrial fibrillation (9) Supratherapeutic INR SNOMED Code(s): 364338194 Code(s): R79.1 - ABNORMAL COAGULATION PROFILE Status: Acute Priority: High (10) Warfarin anticoagulation SNOMED Code(s): 34797506, 415237123, 772541177 Code(s): Z79.01 - LONG-TERM (CURRENT) USE OF ANTICOAGULANTS Status: Acute Priority: High (11) Hypertension SNOMED Code(s): 96195694 Code(s): I10 - ESSENTIAL (PRIMARY) HYPERTENSION Status: Chronic Priority : Low Qualifiers: Hypertension type: unspecified Qualified Code(s): I10 - Essential (primary ) hypertension (12) Diabetes mellitus SNOMED Code(s): 51790926 Code(s): E11.9 - TYPE 2 DIABETES MELLITUS WITHOUT COMPLICATIONS Status: Chronic Priority: Medium Qualifiers: Diabetes mellitus type: type 2 Diabetes mellitus licensed psychologist insulin use: unspecified licensed psychologist insulin use status Diabetes mellitus complication status : without complication Qualified Code(s): E11.9 - Type 2 diabetes mellitus without complications (13) Dyslipidemia SNOMED Code(s): 066617389 Code(s): E78.5 - HYPERLIPIDEMIA, UNSPECIFIED Status: Chronic Priority: Medium (14) Normocytic normochromic anemia SNOMED Code(s): 52882135 Code(s): D64.9 - ANEMIA, UNSPECIFIED Status: Acute Priority: High (15) Former smoker, stopped smoking in distant past SNOMED Code(s): 341537470 Code(s): Z87.891 - PERSONAL HISTORY OF NICOTINE DEPENDENCE Status: Chronic Priority: Low (16) Polypharmacy SNOMED Code(s): 873633539 Code(s): Z79.899 - OTHER LONG-TERM (CURRENT) DRUG THERAPY Status: Chronic Priority: Medium (17) residential resident SNOMED Code(s): 820935823 Code(s): Z59.3 - PROBLEMS RELATED TO LIVING IN RESIDENTIAL INSTITUTION Status: Chronic Priority: Medium - Problem List Review Problem List Initiated/Reviewed/Updated: Yes - Plan Plan:: Right lower lobe pneumonia Influenza B Hypoxemia Respiratory acidosis Seen in ED 4 days ago--> Dx with influenza B--> discharged on Tamiflu same day At that time she complained of flue like illness without cough congestion, nausea, vomiting, or diarrhea Labs were normal Today found to have O2Sat in 60's at retirement Did get flu shot this year PLAN - BiPAP - Repeat ABGs as needed - Order procalcitonin - Trend temperature, fever for her is >99.2 - Oxygen supplementation as needed - RT evaluation and treatment - Scheduled Ipratropium - Scheduled Guaifenesin - Order strep. pneumo, mycoplasma and RSV panel - Continue Tamiflu - Continue Levaquin Acute on chronic renal failure,GFR 7.9 High anion gap metabolic acidosis, AG-28 Normocytic normochromic anemia Gap 2/2 Uremia, no lactic acidosis Could also be starvation ketosis PLAN - Ketones in blood - Monitor urine output - Anemia work up Atrial fibrillation, CHADs VASC-5 Supratherapeutic INR Warfarin anticoagulation Hypoxemic in retirement--> called EMS--> upon arrival EMS stated rhythm was a fib On metoprolol and warfarin HR on admission 87 EKG on admission with rate controlled a fib INR > 8 PLAN - Monitor VS - Vitamin K PO x 1 dose - Daily PT/INR Hypertension BP on admission 122/55 Home management with amlodipine PLAN - Monitor BP - Continue home amlodipine - PRN Hydralazine Diabetes mellitus, HbA1c- 4.6% (12/21/18) HbA1c not reliable due to anemia Home management with insulin long acting, 3u QPM Significantly decreased oral intake in the past week PLAN - Accu-checks TID AC and HS - Hypoglycemia protocol - Hold insulin for now - Low sensitivity sliding scale with meals Dyslipidemia Out of window for statin benefit PLAN - Hold during admission and will not continue at discharge Former smoker, stopped smoking in distant past Years of Tobacco use: 20 Month/Year Tobacco Last Used: Quit around 1969 Polypharmacy 12 prescription medications PLAN - Reconcile according to BEERS criteria residential resident Resident [facility] Former smoker, stopped smoking in distant past Years of Tobacco use: 20 Month/Year Tobacco Last Used: Quit around 1969 PROPHYLAXIS DVT- contraindicated GI- not indicated CODE STATUS: DNR/DNI DISPOSITION: Admitted to medical floor for INR monitorization as well as IV antibiotics.
[2019-03-15] MEDS: Calcium Acetate 667 MG Cap PO SCH (17:29)
[2019-03-15] MEDS ORDERED: Warfarin 4 MG Tab PO SCH (18:00)
[2019-03-16] MEDS: Azithromycin 500 MG in Sodium Chloride 0.9% 250 ML IV SCH (02:26)
[2019-03-16] MEDS: Piperacillin/Tazobactam 4.5 GM in Sodium Chloride 0.9% 100 ML IV SCH ×2 (03:38→14:47)
[2019-03-16] MEDS: Calcium Acetate 667 MG Cap PO SCH ×3 (06:44→17:07)
[2019-03-16] MEDS: Allopurinol 100 MG Tab PO SCH (07:59)
[2019-03-16] MEDS: amLODIPine 5 MG Tab PO SCH (07:59)
--- NOTE | 2019-03-16 13:16 | PCM.PN ---
- General Info Date of Service: 03/16/19 Admission Dx/Problem (Free Text): Admission Diagnosis/Problem Admission Diagnosis/Problem Pneumonia Subjective Update: Odilia is doing well. She is sitting up in a chair without any complaints. Creatinine has worsened to 7.6 with a BUN of 93. - Review of Systems General: Reports: No Symptoms HEENT: Reports: No Symptoms Pulmonary: Reports: No Symptoms Cardiovascular: Reports: No Symptoms Gastrointestinal: Reports: No Symptoms - Patient Data Vitals - Most Recent: Last Vital Signs Temp 97.0 F 03/16/19 08:00 Pulse 109 H 03/16/19 08:00 Resp 24 H 03/16/19 08:00 BP 150/53 H 03/16/19 08:00 Pulse Ox 94 L 03/16/19 08:00 Weight - Most Recent: 145 lb 9.6 oz I&O - Last 24 Hours: Intake & Output 03/15/19 03/16/19 03/16/19 22:59 06:59 14:59 Intake Total 1190 550 120 Output Total 200 350 Balance 990 200 120 Lab Results Last 24 Hours: Laboratory Results - last 24 hr 03/15/19 03/15/19 03/15/19 Range/Units 04:45 13:23 21:35 WBC (3.98-10.04) K/mm3 RBC (3.98-5.22) M/mm3 Hgb (11.2-15.7) gm/dl Hct (34.1-44.9) % MCV (79.4-94.8) fl MCH (25.6-32.2) pg MCHC (32.2-35.5) g/dl RDW Std Deviation (36.4-46.3) fL Plt Count (182-369) K/mm3 MPV (9.4-12.3) fl Neut % (Auto) (34.0-71.1) % Lymph % (Auto) (19.3-51.7) % [place] % (Auto) (4.7-12.5) % Eos % (Auto) (0.7-5.8) Baso % (Auto) (0.1-1.2) % Neut # (Auto) (1.56-6.13) K/mm3 Lymph # (Auto) (1.18-3.74) K/mm3 [place] # (Auto) (0.24-0.36) K/mm3 Eos # (Auto) (0.04-0.36) K/mm3 Baso # (Auto) (0.01-0.08) K/mm3 Manual Slide Review PT (9.7-12.0) SECONDS INR APTT > 139 H* D 84 H D (22-31) SECONDS Sodium (136-145) mEq/L Potassium (3.5-5.1) mEq/L Chloride (98-107) mEq/L Carbon Dioxide (21-32) mEq/L Anion Gap (5-15) BUN (7-18) mg/dL Creatinine (0.55-1.02) mg/dL Est Cr Clr Drug Dosing mL/min Estimated GFR (MDRD) (>60) mL/min BUN/Creatinine Ratio (14-18) Glucose (83-115) mg/dL Calcium (8.5-10.1) mg/dL Phosphorus (2.6-4.7) mg/dL Magnesium (1.8-2.4) mg/dl Blood Type B NEGATIVE Gel Antibody Screen Negative Crossmatch See Detail 03/15/19 03/16/19 03/16/19 Range/Units 23:10 06:55 06:55 WBC (3.98-10.04) K/mm3 RBC (3.98-5.22) M/mm3 Hgb (11.2-15.7) gm/dl Hct (34.1-44.9) % MCV (79.4-94.8) fl MCH (25.6-32.2) pg MCHC (32.2-35.5) g/dl RDW Std Deviation (36.4-46.3) fL Plt Count (182-369) K/mm3 MPV (9.4-12.3) fl Neut % (Auto) (34.0-71.1) % Lymph % (Auto) (19.3-51.7) % [place] % (Auto) (4.7-12.5) % Eos % (Auto) (0.7-5.8) Baso % (Auto) (0.1-1.2) % Neut # (Auto) (1.56-6.13) K/mm3 Lymph # (Auto) (1.18-3.74) K/mm3 [place] # (Auto) (0.24-0.36) K/mm3 Eos # (Auto) (0.04-0.36) K/mm3 Baso # (Auto) (0.01-0.08) K/mm3 Manual Slide Review PT 18.6 H (9.7-12.0) SECONDS INR 1.76 APTT > 139 H* D 59 H D (22-31) SECONDS Sodium (136-145) mEq/L Potassium (3.5-5.1) mEq/L Chloride (98-107) mEq/L Carbon Dioxide (21-32) mEq/L Anion Gap (5-15) BUN (7-18) mg/dL Creatinine (0.55-1.02) mg/dL Est Cr Clr Drug Dosing mL/min Estimated GFR (MDRD) (>60) mL/min BUN/Creatinine Ratio (14-18) Glucose (83-115) mg/dL Calcium (8.5-10.1) mg/dL Phosphorus (2.6-4.7) mg/dL Magnesium (1.8-2.4) mg/dl Blood Type Gel Antibody Screen Crossmatch 03/16/19 03/16/19 Range/Units 06:55 06:55 WBC 10.91 H (3.98-10.04) K/mm3 RBC 3.06 L (3.98-5.22) M/mm3 Hgb 9.2 L (11.2-15.7) gm/dl Hct 27.4 L (34.1-44.9) % MCV 89.5 D (79.4-94.8) fl MCH 30.1 (25.6-32.2) pg MCHC 33.6 (32.2-35.5) g/dl RDW Std Deviation 52.1 H (36.4-46.3) fL Plt Count 179 L (182-369) K/mm3 MPV 9.8 (9.4-12.3) fl Neut % (Auto) 83.2 H (34.0-71.1) % Lymph % (Auto) 7.3 L (19.3-51.7) % [place] % (Auto) 5.1 (4.7-12.5) % Eos % (Auto) 2.6 (0.7-5.8) Baso % (Auto) 0.3 (0.1-1.2) % Neut # (Auto) 9.08 H (1.56-6.13) K/mm3 Lymph # (Auto) 0.80 L (1.18-3.74) K/mm3 [place] # (Auto) 0.56 H (0.24-0.36) K/mm3 Eos # (Auto) 0.28 (0.04-0.36) K/mm3 Baso # (Auto) 0.03 (0.01-0.08) K/mm3 Manual Slide Review Abnormal smear PT (9.7-12.0) SECONDS INR APTT (22-31) SECONDS Sodium 138 (136-145) mEq/L Potassium 3.6 (3.5-5.1) mEq/L Chloride 102 (98-107) mEq/L Carbon Dioxide 15 L (21-32) mEq/L Anion Gap 24.6 H (5-15) BUN 93 H (7-18) mg/dL Creatinine 7.6 H (0.55-1.02) mg/dL Est Cr Clr Drug Dosing 4.09 mL/min Estimated GFR (MDRD) 5 (>60) mL/min BUN/Creatinine Ratio 12.2 L (14-18) Glucose 106 (83-115) mg/dL Calcium 7.3 L (8.5-10.1) mg/dL Phosphorus 8.1 H (2.6-4.7) mg/dL Magnesium 1.9 (1.8-2.4) mg/dl Blood Type Gel Antibody Screen Crossmatch Marcial Results Last 24 Hours: Microbiology 03/13/19 01:43 Aerobic Blood Culture - Preliminary Blood - Venous NO GROWTH AFTER 3 DAYS Anaerobic Blood Culture - Preliminary NO GROWTH AFTER 3 DAYS 03/13/19 01:30 Aerobic Blood Culture - Preliminary Blood - Venous - Lab Draw NO GROWTH AFTER 3 DAYS Anaerobic Blood Culture - Preliminary NO GROWTH AFTER 3 DAYS Med Orders - Current: Current Medications Acetaminophen (Tylenol) 650 mg PO Q4H PRN PRN Reason: Pain (moderate 4-6) Last Admin: 03/15/19 04:44 Dose: 650 mg Allopurinol (Zyloprim) 100 mg PO DAILY [facility] Last Admin: 03/16/19 07:59 Dose: 100 mg Amlodipine Besylate (Norvasc) 5 mg PO DAILY [facility] Last Admin: 03/16/19 07:59 Dose: 5 mg Artificial Tears (Refresh Liquigel 1%) 0 ml EYEBOTH Q2H PRN PRN Reason: Dry Eyes Calcium Acetate (Phoslo) 667 mg PO TIDMEALS [facility] Last Admin: 03/16/19 11:45 Dose: 667 mg Piperacillin Sod/Tazobactam (Sod 4.5 gm/ Sodium Chloride) 100 mls @ 133.333 mls /hr IV Q12H [facility] Last Admin: 03/16/19 03:38 Dose: 133.333 mls/hr Azithromycin 500 mg/ Sodium (Chloride) 250 mls @ 250 mls/hr IV Q24H [facility] Last Admin: 03/16/19 02:26 Dose: 250 mls/hr Heparin Sodium/Dextrose (Heparin 25,000 Units In D5w 500 Ml) 25,000 units in 500 mls @ 23.09 mls/hr IV TITRATE [facility]; Protocol Last Titration: 03/16/19 00:25 Dose: 10.95 units/kg/hr, 14.046 mls/hr Ondansetron HCl (Zofran Odt) 4 mg PO Q6H PRN PRN Reason: nausea, able to take PO Ondansetron HCl (Zofran) 4 mg IV Q6H PRN PRN Reason: Nausea/Vomiting Warfarin Sodium (Pharmacy To Dose - Warfarin) 0 dose .XX ASDIRECTED PRN PRN Reason: RX TO DOSE COUMADIN Warfarin Sodium (Coumadin) 2 mg PO QPM [facility] Stop: 03/16/19 21:00 Discontinued Medications Dextrose/Water (Dextrose 50% In Water) 50 ml IVPUSH ASDIRECTED PRN PRN Reason: Hypoglycemia Heparin Sodium (Porcine) (Heparin Sodium) 5,000 units IVPUSH .BOLUS ONE Stop: 03/14/19 11:31 Last Admin: 03/14/19 13:50 Dose: Not Given Piperacillin Sod/Tazobactam (Sod 4.5 gm/ Sodium Chloride) 100 mls @ 200 mls/hr IV ONETIME ONE Stop: 03/13/19 02:49 Last Admin: 03/13/19 02:32 Dose: 200 mls/hr Levofloxacin/Dextrose 750 mg/ (Premix) 150 mls @ 100 mls/hr IV ONETIME STA Stop: 03/13/19 04:51 Last Admin: 03/13/19 03:35 Dose: 100 mls/hr Sodium Chloride (Normal Saline) 1,000 mls @ 150 mls/hr IV ASDIRECTED [facility] Last Admin: 03/13/19 03:35 Dose: 150 mls/hr Lactated Ringer's (Ringers, Lactated) 1,000 mls @ 50 mls/hr IV ASDIRECTED [facility] Last Admin: 03/15/19 07:40 Dose: 50 mls/hr Sodium Chloride (Normal Saline) 250 mls @ 100 mls/hr IV ASDIRECTED [facility] Insulin Human Lispro (Humalog) 0 unit SUBCUT BIDAC [facility]; Protocol Last Admin: 03/15/19 09:28 Dose: Not Given Phytonadione (Aquamephyton) 1 mg PO ONETIME ONE Stop: 03/13/19 07:57 Last Admin: 03/13/19 08:40 Dose: 1 mg Warfarin Sodium (Pharmacy To Dose - Warfarin) 1 dose PO ASDIRECTED PRN PRN Reason: RX TO DOSE WARFARIN Warfarin Sodium (Coumadin) 2 mg PO QPM [facility] Stop: 03/14/19 18:01 Last Admin: 03/14/19 19:14 Dose: 2 mg Warfarin Sodium (Coumadin) 4 mg PO QPM [facility] Stop: 03/15/19 21:00 Last Admin: 03/15/19 17:29 Dose: 4 mg - Exam General: Alert HEENT: Pupils Equal Neck: Supple Lungs: Normal Respiratory Effort, Crackles (Bibasilar) Cardiovascular: Irregular Rhythm Extremities: Pedal Edema (2+ pitting edema) Psy/Mental Status: Alert Sepsis Event Note - Evaluation Sepsis Screening Result: Sepsis Risk - Focused Exam Vital Signs: Vital Signs Temp Pulse Resp BP Pulse Ox 03/16/19 08:00 97.0 F 109 H 24 H 150/53 H 94 L 03/16/19 07:59 150/53 H 03/16/19 04:00 95 03/16/19 03:03 98.4 F 114 H 21 H 115/73 95 Date Exam was Performed: 03/16/19 Time Exam was Performed: 13:08 - Problem List Review Problem List Initiated/Reviewed/Updated: Yes - My Orders Last 24 Hours: My Active Orders 03/16/19 10:15 Pharmacy to Dose - Warfarin 0 dose .XX ASDIRECTED PRN 03/16/19 12:53 aPTT [PTT,PARTIAL THROMBOPLSTIN TIME] [COAG] Timed 03/16/19 18:00 Warfarin [Coumadin] 2 mg PO QPM - Plan Plan:: Right lower lobe pneumonia Positive mycoplasma IgM Influenza B Hypoxemia Respiratory acidosis Seen in ED 4 days ago--> Dx with influenza B--> discharged on Tamiflu same day At that time she complained of flue like illness without cough, congestion, productive sputum Found at retirement with O2Sat in 60's at retirement Did get flu shot this year Finished course of Tamiflu PLAN - BiPAP -PRN -currently off and doing well. - Repeat ABGs as needed -metabolic acidosis secondary to renal failure - Waiting for procalcitonin - Oxygen supplementation as needed - RT evaluation and treatment - Scheduled Ipratropium - Scheduled Guaifenesin - Order strep. pneumo, mycoplasma and RSV panel - Unasyn and azithromycin Acute on chronic renal failure,GFR 7.9 High anion gap metabolic acidosis, AG-28 Normocytic normochromic anemia Gap 2/2 Uremia, no lactic acidosis Could also be starvation ketosis Urine output is very low at approximately 550 mL/day. Patient needs dialysis but refuses. She understands that she will likely from renal failure. Reddening has increased to 7.6 and BUN of 93. 3 pound weight gain since admission. PLAN - Trial of Lasix 60 mg IV x1 - Monitor urine output - Anemia work up Atrial fibrillation, CHADs VASC-5 Supratherapeutic INR Warfarin anticoagulation Hypoxemic in retirement--> called EMS--> upon arrival EMS stated rhythm was a fib On metoprolol and warfarin HR on admission 87 EKG on admission with rate controlled a fib INR on admission > 8 After 1 dose of oral vitamin K INR decreased to 1.4 PLAN - Monitor VS - Stop heparin drip secondary to labile APTT increasing her risk for bleed. - Pharmacy to dose warfarin - Daily PT/INR Hypertension BP on admission 122/55 Home management with amlodipine PLAN - Monitor BP - Continue home amlodipine - PRN Hydralazine Diabetes mellitus, HbA1c- 4.6% (12/21/18) HbA1c not reliable due to anemia Home management with insulin long acting, 3u QPM Significantly decreased oral intake in the past week PLAN - Accu-checks TID AC and HS - Hypoglycemia protocol - Hold insulin for now - Low sensitivity sliding scale with meals Dyslipidemia Out of window for statin benefit PLAN - Hold during admission and will not continue at discharge Former smoker, stopped smoking in distant past Years of Tobacco use: 20 Month/Year Tobacco Last Used: Quit around 1969 Polypharmacy 12 prescription medications PLAN - Reconcile according to [facility] criteria [facility] resident Resident [facility] Former smoker, stopped smoking in distant past Years of Tobacco use: 20 Month/Year Tobacco Last Used: Quit around 1969 PROPHYLAXIS DVT- contraindicated GI- not indicated CODE STATUS: DNR/DNI DISPOSITION: Admitted to medical floor for INR monitorization as well as IV antibiotics. Length of stay greater than 96 hours secondary to slow resolution of symptoms and because of renal failure.
[2019-03-16] MEDS ORDERED: Furosemide 40 MG/4 ML VIAL IVPUSH ONE (13:25)
[2019-03-17] MEDS: Azithromycin 500 MG in Sodium Chloride 0.9% 250 ML IV SCH (03:59)
[2019-03-17] MEDS: Piperacillin/Tazobactam 4.5 GM in Sodium Chloride 0.9% 100 ML IV SCH ×2 (04:00→16:28)
[2019-03-17] MEDS: Calcium Acetate 667 MG Cap PO SCH ×3 (06:29→16:29)
[2019-03-17] MEDS: amLODIPine 5 MG Tab PO SCH (08:35)
[2019-03-17] MEDS: Allopurinol 100 MG Tab PO SCH (08:35)
--- NOTE | 2019-03-17 09:29 | PCM.PN ---
- General Info Date of Service: 03/17/19 Admission Dx/Problem (Free Text): Admission Diagnosis/Problem Admission Diagnosis/Problem Pneumonia Subjective Update: Patient is doing well. She slept well last night. No current complaints. - Review of Systems General: Reports: No Symptoms HEENT: Reports: No Symptoms Pulmonary: Reports: No Symptoms Cardiovascular: Reports: No Symptoms Gastrointestinal: Reports: No Symptoms - Patient Data Vitals - Most Recent: Last Vital Signs Temp 97.3 F 03/17/19 03:57 Pulse 98 03/17/19 03:57 Resp 14 03/17/19 03:57 BP 124/62 03/17/19 08:35 Pulse Ox 92 L 03/17/19 03:57 Weight - Most Recent: 146 lb 6.4 oz I&O - Last 24 Hours: Intake & Output 03/16/19 03/17/19 03/17/19 22:59 06:59 14:59 Intake Total 512 725 Output Total 252 525 Balance 260 200 Lab Results Last 24 Hours: Laboratory Results - last 24 hr 03/16/19 03/17/19 Range/Units 12:53 06:30 PT 26.7 H D (9.7-12.0) SECONDS INR 2.58 APTT 63 H D (22-31) SECONDS Marcial Results Last 24 Hours: Microbiology 03/13/19 01:43 Aerobic Blood Culture - Preliminary Blood - Venous NO GROWTH AFTER 4 DAYS Anaerobic Blood Culture - Preliminary NO GROWTH AFTER 4 DAYS 03/13/19 01:30 Aerobic Blood Culture - Preliminary Blood - Venous - Lab Draw NO GROWTH AFTER 4 DAYS Anaerobic Blood Culture - Preliminary NO GROWTH AFTER 4 DAYS Med Orders - Current: Current Medications Acetaminophen (Tylenol) 650 mg PO Q4H PRN PRN Reason: Pain (moderate 4-6) Last Admin: 03/15/19 04:44 Dose: 650 mg Allopurinol (Zyloprim) 100 mg PO DAILY [facility] Last Admin: 03/17/19 08:35 Dose: 100 mg Amlodipine Besylate (Norvasc) 5 mg PO DAILY [facility] Last Admin: 03/17/19 08:35 Dose: 5 mg Artificial Tears (Refresh Liquigel 1%) 0 ml EYEBOTH Q2H PRN PRN Reason: Dry Eyes Calcium Acetate (Phoslo) 667 mg PO TIDMEALS [facility] Last Admin: 03/17/19 06:29 Dose: 667 mg Azithromycin 500 mg/ Sodium (Chloride) 250 mls @ 250 mls/hr IV Q24H [facility] Last Admin: 03/17/19 03:59 Dose: 250 mls/hr Piperacillin Sod/Tazobactam (Sod 4.5 gm/ Sodium Chloride) 100 mls @ 25 mls/hr IV Q12H [facility] Last Admin: 03/17/19 04:00 Dose: 25 mls/hr Ondansetron HCl (Zofran Odt) 4 mg PO Q6H PRN PRN Reason: nausea, able to take PO Ondansetron HCl (Zofran) 4 mg IV Q6H PRN PRN Reason: Nausea/Vomiting Warfarin Sodium (Pharmacy To Dose - Warfarin) 0 dose .XX ASDIRECTED PRN PRN Reason: RX TO DOSE COUMADIN Discontinued Medications Dextrose/Water (Dextrose 50% In Water) 50 ml IVPUSH ASDIRECTED PRN PRN Reason: Hypoglycemia Furosemide (Lasix) 60 mg IVPUSH NOW ONE Stop: 03/16/19 13:26 Last Admin: 03/16/19 13:47 Dose: 60 mg Heparin Sodium (Porcine) (Heparin Sodium) 5,000 units IVPUSH .BOLUS ONE Stop: 03/14/19 11:31 Last Admin: 03/14/19 13:50 Dose: Not Given Piperacillin Sod/Tazobactam (Sod 4.5 gm/ Sodium Chloride) 100 mls @ 200 mls/hr IV ONETIME ONE Stop: 03/13/19 02:49 Last Admin: 03/13/19 02:32 Dose: 200 mls/hr Levofloxacin/Dextrose 750 mg/ (Premix) 150 mls @ 100 mls/hr IV ONETIME STA Stop: 03/13/19 04:51 Last Admin: 03/13/19 03:35 Dose: 100 mls/hr Sodium Chloride (Normal Saline) 1,000 mls @ 150 mls/hr IV ASDIRECTED [facility] Last Admin: 03/13/19 03:35 Dose: 150 mls/hr Lactated Ringer's (Ringers, Lactated) 1,000 mls @ 50 mls/hr IV ASDIRECTED [facility] Last Admin: 03/15/19 07:40 Dose: 50 mls/hr Piperacillin Sod/Tazobactam (Sod 4.5 gm/ Sodium Chloride) 100 mls @ 133.333 mls /hr IV Q12H [facility] Last Admin: 03/16/19 14:47 Dose: 133.333 mls/hr Heparin Sodium/Dextrose (Heparin 25,000 Units In D5w 500 Ml) 25,000 units in 500 mls @ 23.09 mls/hr IV TITRATE [facility]; Protocol Last Titration: 03/16/19 00:25 Dose: 10.95 units/kg/hr, 14.046 mls/hr Sodium Chloride (Normal Saline) 250 mls @ 100 mls/hr IV ASDIRECTED [facility] Insulin Human Lispro (Humalog) 0 unit SUBCUT BIDAC [facility]; Protocol Last Admin: 03/15/19 09:28 Dose: Not Given Phytonadione (Aquamephyton) 1 mg PO ONETIME ONE Stop: 03/13/19 07:57 Last Admin: 03/13/19 08:40 Dose: 1 mg Warfarin Sodium (Pharmacy To Dose - Warfarin) 1 dose PO ASDIRECTED PRN PRN Reason: RX TO DOSE WARFARIN Warfarin Sodium (Coumadin) 2 mg PO QPM [facility] Stop: 03/14/19 18:01 Last Admin: 03/14/19 19:14 Dose: 2 mg Warfarin Sodium (Coumadin) 4 mg PO QPM [facility] Stop: 03/15/19 21:00 Last Admin: 03/15/19 17:29 Dose: 4 mg Warfarin Sodium (Coumadin) 2 mg PO QPM [facility] Stop: 03/16/19 21:00 Last Admin: 03/16/19 17:07 Dose: 2 mg - Exam General: Alert HEENT: Pupils Equal, EOMI, Mucous Membr. Moist/[place] Neck: Supple Lungs: Normal Respiratory Effort, Crackles Cardiovascular: Regular Rate, Irregular Rhythm GI/Abdominal Exam: Normal Bowel Sounds, Soft, Non-Tender, No Distention Extremities: Normal Inspection, Pedal Edema (2+) Sepsis Event Note - Evaluation Sepsis Screening Result: No Definite Risk - Focused Exam Vital Signs: Vital Signs Temp Pulse Resp BP Pulse Ox 03/17/19 08:35 124/62 03/17/19 03:57 97.3 F 98 14 121/76 92 L Date Exam was Performed: 03/17/19 Time Exam was Performed: 16:09 - Problem List Review Problem List Initiated/Reviewed/Updated: Yes - My Orders Last 24 Hours: My Active Orders 03/16/19 10:15 Pharmacy to Dose - Warfarin 0 dose .XX ASDIRECTED PRN 03/17/19 09:20 CBC WITH AUTO DIFF [HEME] Routine COMPREHENSIVE METABOLIC PN,CMP [CHEM] Routine MAGNESIUM [CHEM] Routine - Plan Plan:: Right lower lobe pneumonia Positive mycoplasma IgM Influenza B Hypoxemia Respiratory acidosis Seen in ED 4 days ago--> Dx with influenza B--> discharged on Tamiflu same day At that time she complained of flue like illness without cough, congestion, productive sputum Found at retirement with O2Sat in 60's at retirement Did get flu shot this year Finished course of Tamiflu PLAN - Scheduled Ipratropium - Scheduled Guaifenesin - Order strep. pneumo, mycoplasma and RSV panel -still pending - Unasyn and azithromycin Acute on chronic renal failure,GFR 7.9 High anion gap metabolic acidosis, AG-28 Normocytic normochromic anemia Gap 2/2 Uremia, no lactic acidosis Could also be starvation ketosis Urine output is very low at approximately 550 mL/day. Patient needs dialysis but refuses. She understands that she will likely from renal failure. Reddening has increased to 7.6 and BUN of 93. 3 pound weight gain since admission. PLAN Transfer patient to [facility] in [place] for dialysis Atrial fibrillation, CHADs VASC-5 Supratherapeutic INR Warfarin anticoagulation Hypoxemic in retirement--> called EMS--> upon arrival EMS stated rhythm was a fib On metoprolol and warfarin HR on admission 87 EKG on admission with rate controlled a fib INR on admission > 8 After 1 dose of oral vitamin K INR decreased to 1.4 INR now therapeutic at 2.58 Hypertension BP on admission 122/55 Home management with amlodipine PLAN - Monitor BP - Continue home amlodipine - PRN Hydralazine Diabetes mellitus, HbA1c- 4.6% (12/21/18) HbA1c not reliable due to anemia and renal failure Home management with insulin long acting, 3u QPM Significantly decreased oral intake in the past week PLAN - Accu-checks TID AC and HS - Hypoglycemia protocol - Hold insulin for now - Low sensitivity sliding scale with meals Dyslipidemia Out of window for statin benefit PLAN - Hold during admission and will not continue at discharge Former smoker, stopped smoking in distant past Years of Tobacco use: 20 Month/Year Tobacco Last Used: Quit around 1969 jail resident [facility] [place] Former smoker, stopped smoking in distant past Years of Tobacco use: 20 Month/Year Tobacco Last Used: Quit around 1969 PROPHYLAXIS DVT- contraindicated GI- not indicated CODE STATUS: DNR/DNI DISPOSITION: Patient be transferred to [facility] in [place] for dialysis
--- NOTE | 2019-03-17 16:28 | PCM.DCSUM1 ---
Discharge Summary - Hospital Course HPI Initial Comments: 83-year-old woman, a resident of [facility], who comes in to the ED via EMS after the intermediate staff found her to be hypoxemic with an oxygen saturation in the 60s. It is unclear if they or EMS placed her on a nonrebreather. EMS found her to be in atrial fibrillation. Of note she was seen in this ED this past 03/09/2019, after developing a low-grade fever, generalized malaise, decreased appetite, and increased weakness on 03/08/2019. She denied at that time a history of cough, congestion, nausea, vomiting, or diarrhea. A CBC, CMP, and urinalysis were unremarkable, however, her influenza swab returned positive for influenza B. She was prescribed Tamiflu and returned to the intermediate. Diagnosis: Stroke: No - Discharge Data Discharge Date: 03/17/19 Discharge Disposition: DC/Tfer to Acute Hospital 02 Condition: Good - Referral to Home Health Primary Care Physician: PCP None - Patient Summary/Data Consults: Consultations 03/13/19 07:56 Consult to Case Management/Visual Display Manager [CONS] Routine Consult to Nurse Staff [CONS] Routine OT Evaluation and Treatment [CONS] Routine PT Evaluation and Treatment [CONS] Routine Respiratory Care Assess and Treatment [CONS] Routine BIOMEDICAL ANALYTICAL SCIENTIST Evaluation and Treatment [CONS] Routine Hospital Course: Right lower lobe pneumonia Positive mycoplasma IgM Influenza B Hypoxemia Respiratory acidosis Seen in ED 4 days ago--> Dx with influenza B--> discharged on Tamiflu same day At that time she complained of flue like illness without cough, congestion, productive sputum Found at intermediate with O2Sat in 60's at intermediate Did get flu shot this year Finished course of Tamiflu PLAN - Scheduled Ipratropium - Scheduled Guaifenesin - Order strep. pneumo, mycoplasma and RSV panel -still pending - Unasyn and azithromycin Acute on chronic renal failure,GFR 7.9 High anion gap metabolic acidosis, AG-28 Normocytic normochromic anemia Gap 2/2 Uremia, no lactic acidosis Urine output is very low at approximately 550 mL/day. Patient needs dialysis but refused until today. Reddening has increased to 8.2 3 pound weight gain since admission. [place] Atrial fibrillation, CHADs VASC-5 Supratherapeutic INR Warfarin anticoagulation Hypoxemic in intermediate--> called EMS--> upon arrival EMS stated rhythm was a fib On metoprolol and warfarin HR on admission 87 EKG on admission with rate controlled a fib INR on admission > 8 After 1 dose of oral vitamin K INR decreased to 1.4 INR now therapeutic at 2.58 Hypertension BP on admission 122/55 Home management with amlodipine PLAN - Monitor BP - Continue home amlodipine - PRN Hydralazine Diabetes mellitus, HbA1c- 4.6% (12/21/18) HbA1c not reliable due to anemia and renal failure Home management with insulin long acting, 3u QPM Significantly decreased oral intake in the past week PLAN - Accu-checks TID AC and HS - Hypoglycemia protocol - Hold insulin for now - Low sensitivity sliding scale with meals Dyslipidemia Out of window for statin benefit PLAN - Hold during admission and will not continue at discharge Former smoker, stopped smoking in distant past Years of Tobacco use: 20 Month/Year Tobacco Last Used: Quit around 1969 [facility] resident Resident of [place] Former smoker, stopped smoking in distant past Years of Tobacco use: 20 Month/Year Tobacco Last Used: Quit around 1969 PROPHYLAXIS DVT- contraindicated GI- not indicated CODE STATUS: DNR/DNI DISPOSITION: [place] - Discharge Plan *PRESCRIPTION DRUG MONITORING PROGRAM REVIEWED*: Not Applicable *COPY OF PRESCRIPTION DRUG MONITORING REPORT IN PATIENT JUSTO: Not Applicable Home Medications: Home Meds Acetaminophen 650 mg PO TID PRN 04/13/17 [History] Allopurinol [Zyloprim] 100 mg PO DAILY 04/13/17 [History] Aspirin [Ecotrin EC] 81 mg PO DAILY 04/13/17 [History] Cranberry 400 mg PO BID 04/13/17 [History] Furosemide [Lasix] 40 mg PO DAILY 04/13/17 [History] Tamoxifen [Nolvadex] 20 mg PO DAILY 06/24/18 [History] amLODIPine [Norvasc] 5 mg PO DAILY tablet 12/23/18 [Rx] Insulin Glarg,Human.Rec.Analog [Lantus Solostar] 3 units SUBCUT BEDTIME [History] Oseltamivir [Tamiflu] 75 mg PO BID #9 cap 03/09/19 [Rx] Warfarin Sodium [Jantoven] 2.5 mg PO SUTUWETHSA 03/09/19 [History] Warfarin Sodium [Jantoven] 3.75 mg PO MOFR 03/09/19 [History] Ondansetron [Zofran ODT] 4 mg PO Q6H PRN 03/13/19 [History] Metoprolol Succinate 100 mg PO DAILY 03/14/19 [History] Oxygen Therapy Mode: Room Air Patient Handouts: Sepsis, Adult Forms: ED Department Discharge Referrals: Estiven Burnett MD [Physician] - - Discharge Summary/Plan Comment DC Time >30 min.: Yes Discharge Summary/Plan Comment: Spoke with Dr. Sewell who is the accepting physician at [facility] in [place]. Patient will be transferred because we do not perform inpatient dialysis. - Patient Data Vitals - Most Recent: Last Vital Signs Temp 97.0 F 03/17/19 14:51 Pulse 106 H 03/17/19 14:51 Resp 24 H 03/17/19 14:51 BP 140/82 03/17/19 14:51 Pulse Ox 98 03/17/19 14:51 Weight - Most Recent: 146 lb 6.4 oz I&O - Last 24 hours: Intake & Output 03/17/19 03/17/19 03/17/19 06:59 14:59 22:59 Intake Total 725 120 Output Total 525 Balance 200 120 Lab Results - Last 24 hrs: Laboratory Results - last 24 hr 03/15/19 03/17/19 03/17/19 Range/Units 04:45 06:30 06:30 WBC 8.45 (3.98-10.04) K/mm3 RBC 2.99 L (3.98-5.22) M/mm3 Hgb 9.0 L (11.2-15.7) gm/dl Hct 26.9 L (34.1-44.9) % MCV 90.0 (79.4-94.8) fl MCH 30.1 (25.6-32.2) pg MCHC 33.5 (32.2-35.5) g/dl RDW Std Deviation 51.4 H (36.4-46.3) fL Plt Count 154 L (182-369) K/mm3 MPV 10.0 (9.4-12.3) fl Neut % (Auto) 78.2 H (34.0-71.1) % Lymph % (Auto) 8.9 L (19.3-51.7) % [place] % (Auto) 7.8 (4.7-12.5) % Eos % (Auto) 3.4 (0.7-5.8) Baso % (Auto) 0.5 (0.1-1.2) % Neut # (Auto) 6.61 H (1.56-6.13) K/mm3 Lymph # (Auto) 0.75 L (1.18-3.74) K/mm3 [place] # (Auto) 0.66 H (0.24-0.36) K/mm3 Eos # (Auto) 0.29 (0.04-0.36) K/mm3 Baso # (Auto) 0.04 (0.01-0.08) K/mm3 Manual Slide Review Abnormal smear PT 26.7 H D (9.7-12.0) SECONDS INR 2.58 Sodium (136-145) mEq/L Potassium (3.5-5.1) mEq/L Chloride (98-107) mEq/L Carbon Dioxide (21-32) mEq/L Anion Gap (5-15) BUN (7-18) mg/dL Creatinine (0.55-1.02) mg/dL Est Cr Clr Drug Dosing mL/min Estimated GFR (MDRD) (>60) mL/min BUN/Creatinine Ratio (14-18) Glucose (83-115) mg/dL Calcium (8.5-10.1) mg/dL Magnesium (1.8-2.4) mg/dl Total Bilirubin (0.2-1.0) mg/dL AST (15-37) U/L ALT (14-59) U/L Alkaline Phosphatase (46-116) U/L Total Protein (6.4-8.2) g/dl Albumin (3.4-5.0) g/dl Globulin gm/dL Albumin/Globulin Ratio (1-2) Crossmatch See Detail 03/17/19 Range/Units 06:30 WBC (3.98-10.04) K/mm3 RBC (3.98-5.22) M/mm3 Hgb (11.2-15.7) gm/dl Hct (34.1-44.9) % MCV (79.4-94.8) fl MCH (25.6-32.2) pg MCHC (32.2-35.5) g/dl RDW Std Deviation (36.4-46.3) fL Plt Count (182-369) K/mm3 MPV (9.4-12.3) fl Neut % (Auto) (34.0-71.1) % Lymph % (Auto) (19.3-51.7) % [place] % (Auto) (4.7-12.5) % Eos % (Auto) (0.7-5.8) Baso % (Auto) (0.1-1.2) % Neut # (Auto) (1.56-6.13) K/mm3 Lymph # (Auto) (1.18-3.74) K/mm3 [place] # (Auto) (0.24-0.36) K/mm3 Eos # (Auto) (0.04-0.36) K/mm3 Baso # (Auto) (0.01-0.08) K/mm3 Manual Slide Review PT (9.7-12.0) SECONDS INR Sodium 145 (136-145) mEq/L Potassium 3.7 (3.5-5.1) mEq/L Chloride 108 H (98-107) mEq/L Carbon Dioxide 16 L (21-32) mEq/L Anion Gap 24.7 H (5-15) BUN 97 H (7-18) mg/dL Creatinine 8.2 H (0.55-1.02) mg/dL Est Cr Clr Drug Dosing 3.79 mL/min Estimated GFR (MDRD) 5 (>60) mL/min BUN/Creatinine Ratio 11.8 L (14-18) Glucose 94 (83-115) mg/dL Calcium 7.3 L (8.5-10.1) mg/dL Magnesium 1.9 (1.8-2.4) mg/dl Total Bilirubin 0.3 (0.2-1.0) mg/dL AST 23 (15-37) U/L ALT 21 (14-59) U/L Alkaline Phosphatase 45 L (46-116) U/L Total Protein 6.4 (6.4-8.2) g/dl Albumin 2.1 L (3.4-5.0) g/dl Globulin 4.3 gm/dL Albumin/Globulin Ratio 0.5 L (1-2) Crossmatch GISEL Results - Last 24 hrs: Microbiology 03/13/19 01:43 Aerobic Blood Culture - Preliminary Blood - Venous NO GROWTH AFTER 4 DAYS Anaerobic Blood Culture - Preliminary NO GROWTH AFTER 4 DAYS 03/13/19 01:30 Aerobic Blood Culture - Preliminary Blood - Venous - Lab Draw NO GROWTH AFTER 4 DAYS Anaerobic Blood Culture - Preliminary NO GROWTH AFTER 4 DAYS Med Orders - Current: Current Medications Acetaminophen (Tylenol) 650 mg PO Q4H PRN PRN Reason: Pain (moderate 4-6) Last Admin: 03/15/19 04:44 Dose: 650 mg Allopurinol (Zyloprim) 100 mg PO DAILY [facility] Last Admin: 03/17/19 08:35 Dose: 100 mg Amlodipine Besylate (Norvasc) 5 mg PO DAILY [facility] Last Admin: 03/17/19 08:35 Dose: 5 mg Artificial Tears (Refresh Liquigel 1%) 0 ml EYEBOTH Q2H PRN PRN Reason: Dry Eyes Azithromycin (Zithromax) 500 mg PO 0700 [facility] Calcium Acetate (Phoslo) 667 mg PO TIDMEALS [facility] Last Admin: 03/17/19 11:38 Dose: 667 mg Piperacillin Sod/Tazobactam (Sod 4.5 gm/ Sodium Chloride) 100 mls @ 25 mls/hr IV Q12H [facility] Last Admin: 03/17/19 04:00 Dose: 25 mls/hr Ondansetron HCl (Zofran Odt) 4 mg PO Q6H PRN PRN Reason: nausea, able to take PO Ondansetron HCl (Zofran) 4 mg IV Q6H PRN PRN Reason: Nausea/Vomiting Warfarin Sodium (Pharmacy To Dose - Warfarin) 0 dose .XX ASDIRECTED PRN PRN Reason: RX TO DOSE COUMADIN Warfarin Sodium (Coumadin) 1 mg PO QPM [facility] Stop: 03/17/19 18:01 Discontinued Medications Dextrose/Water (Dextrose 50% In Water) 50 ml IVPUSH ASDIRECTED PRN PRN Reason: Hypoglycemia Furosemide (Lasix) 60 mg IVPUSH NOW ONE Stop: 03/16/19 13:26 Last Admin: 03/16/19 13:47 Dose: 60 mg Heparin Sodium (Porcine) (Heparin Sodium) 5,000 units IVPUSH .BOLUS ONE Stop: 03/14/19 11:31 Last Admin: 03/14/19 13:50 Dose: Not Given Piperacillin Sod/Tazobactam (Sod 4.5 gm/ Sodium Chloride) 100 mls @ 200 mls/hr IV ONETIME ONE Stop: 03/13/19 02:49 Last Admin: 03/13/19 02:32 Dose: 200 mls/hr Levofloxacin/Dextrose 750 mg/ (Premix) 150 mls @ 100 mls/hr IV ONETIME STA Stop: 03/13/19 04:51 Last Admin: 03/13/19 03:35 Dose: 100 mls/hr Sodium Chloride (Normal Saline) 1,000 mls @ 150 mls/hr IV ASDIRECTED [facility] Last Admin: 03/13/19 03:35 Dose: 150 mls/hr Lactated Ringer's (Ringers, Lactated) 1,000 mls @ 50 mls/hr IV ASDIRECTED [facility] Last Admin: 03/15/19 07:40 Dose: 50 mls/hr Piperacillin Sod/Tazobactam (Sod 4.5 gm/ Sodium Chloride) 100 mls @ 133.333 mls /hr IV Q12H [facility] Last Admin: 03/16/19 14:47 Dose: 133.333 mls/hr Azithromycin 500 mg/ Sodium (Chloride) 250 mls @ 250 mls/hr IV Q24H [facility] Last Admin: 03/17/19 03:59 Dose: 250 mls/hr Heparin Sodium/Dextrose (Heparin 25,000 Units In D5w 500 Ml) 25,000 units in 500 mls @ 23.09 mls/hr IV TITRATE [facility]; Protocol Last Titration: 03/16/19 00:25 Dose: 10.95 units/kg/hr, 14.046 mls/hr Sodium Chloride (Normal Saline) 250 mls @ 100 mls/hr IV ASDIRECTED [facility] Insulin Human Lispro (Humalog) 0 unit SUBCUT BIDAC [facility]; Protocol Last Admin: 03/15/19 09:28 Dose: Not Given Phytonadione (Aquamephyton) 1 mg PO ONETIME ONE Stop: 03/13/19 07:57 Last Admin: 03/13/19 08:40 Dose: 1 mg Warfarin Sodium (Pharmacy To Dose - Warfarin) 1 dose PO ASDIRECTED PRN PRN Reason: RX TO DOSE WARFARIN Warfarin Sodium (Coumadin) 2 mg PO QPM [facility] Stop: 03/14/19 18:01 Last Admin: 03/14/19 19:14 Dose: 2 mg Warfarin Sodium (Coumadin) 4 mg PO QPM [facility] Stop: 03/15/19 21:00 Last Admin: 03/15/19 17:29 Dose: 4 mg Warfarin Sodium (Coumadin) 2 mg PO QPM [facility] Stop: 03/16/19 21:00 Last Admin: 03/16/19 17:07 Dose: 2 mg *Q Meaningful Use (DIS) - VTE *Q VTE Anticoagulation Contraindications: Medical/Procedure Contrai
[2019-03-18] MEDS ORDERED: Azithromycin 250 MG Tab PO SCH (07:00)
== END 2019-03-17 18:07 | DRG 194 ==
LOC: JD.ED 00:43 → JD.MS 04:07
PROVIDERS: ADMIT Internal Medicine; ATTEND Internal Medicine
DX: J18.1 Lobar pneumonia, unspecified organism (principal); R09.02 Hypoxemia; J10.00 Influenza due to other identified influenza virus with unspecified type of pneumonia; N17.9 Acute kidney failure, unspecified; E87.4 Mixed disorder of acid-base balance; I12.9 Hypertensive chronic kidney disease with stage 1 through stage 4 chronic kidney disease, or unspecified chronic kidney disease; I12.0 Hypertensive chronic kidney disease with stage 5 chronic kidney disease or end stage renal disease; N18.9 Chronic kidney disease, unspecified; Z79.4 Long term (current) use of insulin; F03.90 Unspecified dementia, unspecified severity, without behavioral disturbance, psychotic disturbance, mood disturbance, and anxiety; E87.2 Acidosis; N18.5 Chronic kidney disease, stage 5; Z66 Do not resuscitate; I48.91 Unspecified atrial fibrillation; R79.1 Abnormal coagulation profile; D68.9 Coagulation defect, unspecified; E11.22 Type 2 diabetes mellitus with diabetic chronic kidney disease; E78.5 Hyperlipidemia, unspecified; E78.00 Pure hypercholesterolemia, unspecified; M10.9 Gout, unspecified; Z79.01 Long term (current) use of anticoagulants; Z87.891 Personal history of nicotine dependence; Z79.899 Other long term (current) drug therapy; Z86.718 Personal history of other venous thrombosis and embolism; Z79.82 Long term (current) use of aspirin; Z90.49 Acquired absence of other specified parts of digestive tract
CPT/HCPCS: 36415; 36600; 71046; 80053; 81001; 82803; 83605; 83735; 84484; 85007; 85027; 85610; 87040 ×2; 87641; 93005; 96365; 96367; 99285; J1956; J2543; J7030; J7050; 36430; 51798; 80048; 82607; 82728; 82746; 82962; 83036; 84100; 84145; 85025; 85045; 85730; 86850; 86900; 86901; 86922; 87486; 87581; 87632; 87798; 92610-GN; 93010; 94667; 94668; 94760; 94761; 96361; 96366; 97110-GO; 97110-GP; 97116-GP; 97162-GP; 97165-GO; 97530-GO; 97530-GP; A9270-GY; J0456; J1644; J1940; J7120; P9016